=== PATIENT | female | born 1930 | race African-American/Black ===

== ENCOUNTER 2017-04-01 09:04 | Inpatient (IN) ==
[2017-04-01] MEDS ORDERED: PANTOPRAZOLE 40 MG VIAL IV STA (09:26)
[2017-04-01] MEDS ORDERED: DICYCLOMINE 20 MG/2 ML AMP IM ONE ×2 (09:26→09:48)
[2017-04-01] MEDS ORDERED: METOCLOPRAMIDE 10 MG/2 ML VIAL IV STA (09:26)
[2017-04-01] MEDS ORDERED: ONDANSETRON 4 MG/2 ML VIAL IV STA (09:26)
--- NOTE | 2017-04-01 09:32 | Emergency Department Note ---
Arrival - Arrival Chief Complaint: Abdominal / Flank Pain Stated Complaint: SOB ED Nursing Triage Note: C/O " MY Stomach is swollen" , states she feels like her stomach is pushing up in her chest making her having worsen SOB., + Coughing , denies having increase temp, also states that she has been feeling her heart fluttering over the last week., denies having chest pain or fluttering at the time of triage, states the fluttering and tightness gets worse after she eats., patient wearing oxygen at 2 LNC at time of triage Mode of Arrival: Wheelchair Limitations: No Limitations Source: Patient, Family Time Seen by Provider: 04/01/17 09:26 - History of Present Illness HPI Narrative: This 87-year-old black female presents with complaints of increased abdominal distention, nausea, dry cough, and increasing shortness of breath which she says is due to the sensation of her abdomen blowing up and cutting off her breath. This is been of insidious onset with minimal symptoms at bedtime last night only to progressed to significant complaints this morning associated with a sensation of heart fluttering. In association with this she denies chest pain , vomiting, diarrhea, abdominal pain, chills, fever, chest pain, melena, or bright red blood per rectum. 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 Currently although uncomfortable she is not in acute medical distress. Onset (ago): hour(s) (Patient presents approximately 12 hours post onset of symptoms) Allergies/Adverse Reactions: Allergies Allergy/AdvReac Type Severity Reaction Status Date / Time No Known Allergies Allergy Unverified 04/01/17 09:15 Review of System - Review of System 12 point system: reviewed and no additional remarkable complaints except as stated - Review of System Constitutional: Present: as per HPI Respiratory: Present: as per HPI Cardiovascular: Present: as per HPI Gastrointestinal: Present: as per HPI Medical,Surgical,& Family Hx - Medical History Cardio: History of: Hypertension Endocrine: History of: Diabetes Mellitus (IDDM), Diabetes Mellitus (NIDDM) Respiratory: History of: Respiratory Problems (wears oxygen at 2L) - Social History Smoking Status: Never smoker Frequency of Alcohol Use: None Type of Drug Use: None Exam Physical Examination: GENERAL: Obese elderly black female in no acute distress. HEENT: Normocephalic. No trauma. Moist mucous membranes. EOMI. PERRLA. ENT NML NECK: Supple. No adenopathy. CARDIAC: Regular. No murmurs. Heart rate 130 CHEST: Clear to auscultation. No respiratory distress. O2 sat 9% ABDOMEN: Firm, distended, nontender abdomen with hypoactive bowel sounds. EXTREMITIES: No trauma. Normal ROM. No pedal edema. Bilateral stasis dermatitis of the ankles SKIN: No diaphoresis. No rash. NEURO: Alert. Neuro intact. No focal deficits. Vital Signs: Vital Signs Temperature 97.9 F 04/01/17 09:45 Pulse Rate 128 H 04/01/17 09:45 Respiratory Rate 20 04/01/17 09:45 Blood Pressure 157/98 04/01/17 09:45 O2 Sat by Pulse Oximetry 93 L 04/01/17 09:08 Course - Reevaluation(s) Reevaluation #1: Advised patient that given her cardiac situation and evidence of pulmonary edema she would need to be admitted. - Consultations Consultation #1: Discussed with hospitalist service who will admit for further evaluation treatment peer Results - Labs CBC & BMP: 04/01/17 10:00 04/01/17 10:00 Labs: I reviewed the patient's laboratory and noted the normal cardiac's but evidence of renal insufficiency. Likewise noted was the possibility of early cystitis. - Impressions EKG: SVT at 130, left axis deviation, right bundle branch block pattern with diffuse nonspecific ST changes. No acute injury pattern noted. EKG post Cardizem: No rhythm at 63 with right bundle branch block, left axis deviation and diffuse ST depression inferolaterally. No acute injury pattern noted. - Diagnostic Findings Procedure: Abdominal x-ray: image reviewed by me, report reviewed by me ( Nonspecific gas and feces pattern most consistent with fecal stasis.), Chest x- ray: image reviewed by me, report reviewed by me (Cardiomegaly with bilateral small effusions and mild pulmonary edema) Disposition Clinical Impression: Supraventricular tachycardia, Congestive heart failure, Constipation Case discussed with: patient, patient's family Disposition: Still a Patient Condition: Guarded Time of Disposition: 11:45
[2017-04-01] MEDS ORDERED: ONDANSETRON 4 MG/2 ML VIAL ONE (09:48)
[2017-04-01] MEDS ORDERED: METOCLOPRAMIDE 10 MG/2 ML VIAL ONE (09:48)
[2017-04-01] MEDS ORDERED: PANTOPRAZOLE 40 MG VIAL IV ONE (09:48)
--- NOTE | 2017-04-01 10:07 | XRay Report ---
Exam: XR chest 2V Date: 04/01/2017 9:26 AM Indication: Shortness of breath Comparison: None Technical: 02/17/2014 Findings: Cardiomegaly present. Axillary surgical clips are present. Mild interstitial edema and low volume effusions. ASVD is present. External cardiac leads oxygen tubing are present. Faint clips present in the right upper abdomen. Impression: 1. Cardiomegaly with mild interstitial edema and tiny low volume effusions that suggest component of mild cardiac decompensation 2. Previous left axillary dissection and probable previous cholecystectomy PROCEDURE INTERPRETED AT [facility] DEPARTMENT OF RADIOLOGY Final Report Signed by: Dr. Rivas Aleman
--- NOTE | 2017-04-01 10:08 | XRay Report ---
Exam: XR abdomen 2V Date: 04/01/2017 9:27 AM Comparison: None Indication: Abdominal pain Findings: Lung bases are demonstrated with tiny low volume effusions and mild cardiac enlargement and surgical clips over the left breast axillary region. Surgical clips in the right upper abdomen. The liver and spleen are partially obscured Renal contours are obscured The bony structures are intact. Phleboliths in the right lower abdomen pelvic region No obvious pneumoperitoneum Nonspecific GI pattern. Impression: 1. Nonspecific GI pattern. 2. Low volume effusions atelectatic change in the basilar regions 3. Arthritic changes of the hips bilaterally. 4. Previous cholecystectomy clips. PROCEDURE INTERPRETED AT [facility] DEPARTMENT OF RADIOLOGY Final Report Signed by: Dr. Rivas Aleman
[2017-04-01 10:14] LABS: Basophils % 0.3 % (0.0-0.8); Eosinophils # 0.1 10*3/uL (0.0-0.87); Eosinophils % 1.1 % (0.00-10.9); Hematocrit 36.6 VOL% (35.7-47.0); Hemoglobin 11.5 GM/DL (12.0-16.0); Immature Granulocytes % 0.3 %; Immature Granulocytes Absolute 0.02 #; Lymphocytes # 1.2 10*3/uL (1.4-4.0); Lymphocytes % 19.9 % (21.3-54.2); Mean Corpuscular HGB Conc 31.4 GM/DL (32-36); Mean Corpuscular Hemoglobin 27 PG (27-34); Mean Corpuscular Volume 84.3 FL (87-102); Mean Platelet Volume 11.4 FL (9.6-12.0); Monocytes # 0.7 10*3/uL (0.11-0.8); Monocytes % 11.5 % (1.7-12.7); Neutrophils # 4.1 10*3/uL (1.4-7.4); Neutrophils % 66.9 % (38.7-73.9); Platelet Count 278 T/CUMM (130-400); Red Blood Count 4.34 MC/CUMM (3.8-5.5); Red Cell Distribution Width 18.1 % (9.3-17.3); White Blood Count 6.2 T/CUMM (4-12)
--- NOTE | 2017-04-01 10:20 | EKG Report ---
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
[2017-04-01] MEDS ORDERED: DILTIAZEM 50 MG/10 ML VIAL IV ONE (10:25)
[2017-04-01] MEDS ORDERED: DILTIAZEM 50 MG/10 ML VIAL IV STA (10:26)
[2017-04-01 10:32] LABS: Apearance,Urine CLOUDY (Clear); Bacteria,Urine Many /HPF (Few); Bilirubin,Urine Negative (Negative); Blood, Urine Small mg/dL (Negative); Glucose,Urine (UA) Negative (Negative); Hyaline Casts,Urine 6 /LPF (0-3); Ketones,Urine Negative (Negative); Mucus,Urine Occasional /LPF (Occasional); Nitrite,Urine Negative (Negative); Protein,Urine >=500 MG/DL; Urine Color Yellow (Yellow)
[2017-04-01] MEDS ORDERED: METOPROLOL TARTRATE 50 MG TABLET PO STA (10:40)
--- NOTE | 2017-04-01 10:41 | EKG Report ---
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
[2017-04-01] MEDS ORDERED: METOPROLOL TARTRATE 50 MG TABLET ONE (10:51)
[2017-04-01 10:54] LABS: Lactic Acid 1.9 MMOL/L (0.4-2.0)
[2017-04-01 10:56] LABS: Alanine Aminotransferase 13 U/L (13-56); Albumin 3.5 G/DL (3.4-5.0); Alkaline Phosphatase 68 U/L (45-117); Amylase 35 U/L (25-115); Aspartate Amino Transferase 18 U/L (0-37); Blood Urea Nitrogen 20 MG/DL (7-18); Calcium 9.3 MG/DL (8.5-10.1); Glucose 101 MG/DL (74-106); Osmolality,Calculated 288.8 MOS/KG (273-304); Potassium 4.1 MMOL/L (3.5-5.1); Sodium 144 MMOL/L (136-145); Total Protein 7.7 G/DL (6.4-8.3); Troponin I Only 0.016 NG/ML (0.00-0.045)
[2017-04-01] MEDS ORDERED: FUROSEMIDE 40 MG/4 ML VIAL IV STA (11:40)
[2017-04-01] MEDS ORDERED: FUROSEMIDE 40 MG/4 ML VIAL ONE (11:59)
--- NOTE | 2017-04-01 12:25 | Hospitalist History & Physical ---
Assessment and Plan - Time spent with patient Time spent with patient: Greater than 30 minutes (1) Hypertension Status: Acute Assessment and plan: 87-year-old -[place] female with history of hypertension, diabetes, CHF , breast cancer status post left mastectomy, CAD status post NE admitted by the hospitalist service with shortness of breath, abdominal distention, acute kidney injury, and CHF exacerbation. Patient will be admitted to telemetry floor under Dr. Rao's care. We will restart most of her medicines and hold her Lasix and any other nephrotoxic agent due to her acute kidney injury. Will consult cardiology to evaluate. We will trend her troponins and EKG for ACS. Will restart her home insulin and add sliding scale as well. Patient does have good bowel sounds but she is moderately distended and with no vomiting will allow her to eat and will go ahead and give her something to assist with constipation. Dr. Rao will see and examined patient and further recommendations to follow. Current Visit: Yes (2) Insulin dependent diabetes mellitus Status: Acute Current Visit: Yes (3) Shortness of breath Status: Acute Current Visit: Yes (4) CHF exacerbation Status: Acute Current Visit: Yes (5) Abdominal distention Status: Acute Current Visit: Yes (6) Nausea Status: Acute Current Visit: Yes (7) Acute kidney injury Status: Acute Current Visit: Yes History of Present Illness Chief complaint: Shortness of breath History of present illness: Ms. Churchill is a 87 year old -[place] female with history of diabetes, breast cancer status post left mastectomy, hypertension, CHF, sleep apnea on home O2, CAD with history of NE presenting to the ED with a one-week history of progressive shortness of breath and abdominal distention. Patient states approximately a week ago she started feeling bad where she was getting tired easy and her abdomen was distended. She feels like her abdomen was causing her shortness of breath. She states she had a normal bowel movement this morning she has been somewhat nauseated with decreased appetite over the last 2 days but she has not vomited. She states over the last 24-48 hours she is gotten to where she gets very short of breath doing any kind of activity and she has to stop and sit down in the chair. She has no complaints of chest pain, hematemesis, or hematochezia. She is surrounded by her children, , and grandchildren who are very supportive. Her family physician is Dr. Nina and her warehouse receiving clerk is Dr. Wolfe. Upon exam, her skin is dry with tenting, she has conversational dyspnea with O2 sats dropping into the high 80s with conversation. Her chest is clear but on auscultation her heart rhythm is irregular. ED physician states she was in A. fib with RVR but now her rate is in the 90s. Patient also has some moderate abdominal distention with good bowel sounds and no pain on palpation. She does have mild pedal edema. Her electrolytes are normal, BUN and creatinine are 20/2, BNP 1075, chest x-ray showing cardiomegaly with mild interstitial edema and low volume effusions. After discussion with Dr. Edwards the ED physician and Dr. Rao the admitting hospitalist, it was agreed patient will be admitted for further evaluation and treatment. When medicines are entered into the system they will be reconciled and patient is a full code. Allergies Allergy/AdvReac Type Severity Reaction Status Date / Time No Known Allergies Allergy Unverified 04/01/17 09:15 Medical,Surgical,& Family Hx - Medical History Cardio: History of: CHF, Hypertension Endocrine: History of: Diabetes Mellitus (IDDM), Diabetes Mellitus (NIDDM) Respiratory: History of: Respiratory Problems (wears oxygen at 2L) - Surgical History Abdominal Surgeries: Surgical HX of: Cholecystectomy Reproductive Surgeries: Surgical HX of;: Breast Surgery, Hysterectomy - Family History Family History: Reports;: Family Diabetes, Family Heart Disease - Social History Smoking Status: Never smoker Frequency of Alcohol Use: None Type of Drug Use: None Marital Status: Lives With:: Spouse Functional capacity: independent ambulation 12 point system: reviewed and no additional remarkable complaints except as stated Exam - Constitutional Vitals: Period Temp Pulse Resp BP Sys/Avina Pulse Ox Last 24 Hr 97.9 F-97.9 F 128-128 20-20 157-157/98-98 93 Exam: Constitutional System: No distress. No tremulousness. Head: Normocephalic, atraumatic. Ears, Nose and Throat System: No evidence of Otitis or Mastoiditis. No epistaxis or discharge Eyes System: Pupils equal, round, and reactive. Extraocular muscles intact. Neck: Supple, without adenopathy, No jugular venous distention. No thyromegaly, neck mass, or prior surgery apparent. Respiratory System: Chest clear to auscultation. Cardiovascular System: Heart with irregular rate and rhythm. No murmur. GI System: Abdomen moderately distended, nontender. Normo active bowel sounds present. Musculoskeletal System: limbs with mild pedal edema. Full distal pulses. Neurological System: No discernable sensory deficit. No aphasia Psychiatric System: Conversation is rational Results - Labs CBC & BMP: 04/01/17 10:00 04/01/17 10:00 Lab Results: I have reviewed the past 24 hour labs - Impressions EKG is reading uncertain regular rhythm, marked left axis deviation, right bundle branch block, moderate T-wave abnormality considering lateral and inferior ischemia.
[2017-04-01 12:26] LABS: Free T4 (Free Thyroxine) 1.44 NG/DL (0.76-1.46); Thyroid Stimulating Hormone 0.879 uIU/ml (0.358-3.74)
[2017-04-01] MEDS ORDERED: GLUCAGON 1 MG VIAL IM PRN (12:56)
[2017-04-01] MEDS ORDERED: DEXTROSE 50% 25 GM/50 ML SYRINGE IV PRN (12:56)
[2017-04-01] MEDS: ENOXAPARIN 30 MG/0.3 ML SYRINGE SUBCUT SCH (14:27)
--- NOTE | 2017-04-01 14:46 | Ultrasound Report ---
Exam: US venous doppler LE BI Indication: Bilateral infarction with edema dyspnea Date: 04/01/2017 12:22 PM Comparison 02/12/2014 Findings: Grayscale color flow duplex/Doppler imaging and spectral analysis waveform imaging was performed with real-time ultrasound with image stored and captured. The right common femoral, superficial femoral, popliteal saphenous veins are patent with normal augmentation and compression. There is no evidence of popliteal or Amaro's cyst. Normal wave form analysis present. Normal color flow The left common femoral, superficial femoral, popliteal saphenous veins are patent with normal augmentation and compression. There is no evidence of popliteal or Amaro's cyst. Normal wave form analysis present. Normal color flow Impression: 1. No DVT PROCEDURE INTERPRETED AT [facility] DEPARTMENT OF RADIOLOGY Final Report Signed by: Dr. Rivas Aleman
--- NOTE | 2017-04-01 14:53 | Ultrasound Report ---
Exam: US abdomen Date:04/01/2017 11:58 AM Indication: Elevated creatinine abdominal pain swelling Comparison: None Findings: Liver: 18.7 cm Gallbladder: Prior cholecystectomy CBD: 3.3 mm Pancreas: Normal size shape and configuration Kidneys Right kidney: 10.3 x 4.5 x 4.2 cm. No hydronephrosis perinephric fluid collections or focal mass Left kidney: 10.2 x 5.6 x 3.8 cm. No hydronephrosis perinephric fluid collections or focal mass. Aorta IVC: Aorta is obscured. IVC is patent. Spleen: 11.9 x 5 x 7 x 4.7 cm. Right base pleural effusion is present. No obvious ascites noted. Impression: 1. Previous cholecystectomy 2. No obvious acute intra-abdominal pathology clearly seen. Ultrasound images were stored and captured PROCEDURE INTERPRETED AT [facility] DEPARTMENT OF RADIOLOGY Final Report Signed by: Dr. Rivas Aleman
[2017-04-01] MEDS: INSULIN REGULAR 100 UNIT/ML SUBCUT SCH ×2 (16:21→22:10)
--- NOTE | 2017-04-01 19:40 | Cardiology Consult Note ---
Assessment and Plan (1) Shortness of breath Status: Acute Current Visit: Yes (2) Tachycardia Status: Acute Current Visit: Yes (3) Pulmonary hypertension Status: Chronic Current Visit: Yes (4) Urinary tract infection Status: Acute Current Visit: Yes (5) Renal insufficiency Status: Acute Current Visit: Yes (6) Hypertension Status: Chronic Current Visit: Yes History of Present Illness - Data of Consult Patient: known to practice within the last 3 years Consult date: 04/01/17 Requesting Physician: Rivas Rao - Consult Narrative Reason for consult: CHF History of present illness: Blog Writer: Dr. Wolfe. Ms. Churchill is a 87 year old female with a history of hypertension, left ventricular hypertrophy with diastolic dysfunction, severe pulmonary hypertension, obstructive sleep apnea, chronic right bundle branch block. I do not see any recent echocardiogram on her. She was admitted to the hospital with worsening shortness of breath and "congestive heart failure". The patient reports that over the last couple of weeks she thought that there was " something wrong with her oxygen", she chronically uses O2 at home. This morning however she felt extremely short of breath and so she came to the emergency room for further evaluation and treatment. She has not been experiencing any worsening lower extremity edema, chest discomfort, awareness of any palpitations. Her family is present and believes that she does have a history of "irregular heartbeat", but she does not take any anticoagulation and has never been on anticoagulation for this. She has had an ongoing chronic cough that is occasionally productive of clear sputum, but she has not had any febrile illness. She denies any other acute illnesses other than her stomach feeling "tight" after she eats. She has been diagnosed with urinary tract infection. There is some evidence of "mild" heart failure on evaluation with chest x-ray. Abdominal ultrasound has been unremarkable. Curiously, she tends to have a resting heart rate in the 60s however on my exam she is tachycardic with a heart rate in the 120s. I do not have an ECG with her during tachycardia but is quite possible that she has developed an arrhythmia and this could be paroxysmal, contributing to her symptoms. Impression and plan: 1. Dyspnea-this is likely multifactorial. She has underlying pulmonary hypertension, she also has an elevated d-dimer. Pulmonary embolism should be excluded, with a VQ scan since she has renal insufficiency. We also check bilateral lower extremity venous Dopplers. Given her history of LVH with diastolic dysfunction, certainly a tachycardic arrhythmia could produce some heart failure and worsening dyspnea. I will check an echocardiogram. 2. Tachycardia-see discussion above. This could be related to her urinary tract infection as well. I will check an ECG during tachycardia to try to evaluate for arrhythmia. I would give her at least 1 dose of anticoagulation will work her up for pulmonary embolism and atrial fibrillation. 3. Pulmonary hypertension-chronic. We will recheck echocardiogram. She has seen Dr. Shine in the past. 4. Sleep apnea. Chronic, stable. 5. Hypertension. Chronic, stable. 6. Urinary tract infection-being treated by the hospitalist service. CC: Everardo Brandon - Home Medications and Allergies Home Medications: Home Medications Medication Instructions Recorded Confirmed Type Amlodipine Besylate [Amlodipine 10 mg PO DAILY 04/01/17 04/01/17 History Besylate] Aspirin EC Tab 81 mg PO DAILY 04/01/17 04/01/17 History Furosemide [Furosemide] 40 mg PO DAILY 04/01/17 04/01/17 History Insulin NPH Human Isophane 10 units SUBCUT QAM 04/01/17 04/01/17 History [Novolin N] Isosorbide Mononitrate [Isosorbide 30 mg PO DAILY 04/01/17 04/01/17 History Mononitrate ER] Losartan Potassium [Losartan 50 mg PO DAILY 04/01/17 04/01/17 History Potassium] Metoprolol Succinate Xl [Toprol Xl] 100 mg PO BID 04/01/17 04/01/17 History Potassium Chloride 20 meq PO BID 04/01/17 04/01/17 History Allergies/Adverse Reactions: Allergies Allergy/AdvReac Type Severity Reaction Status Date / Time No Known Allergies Allergy Unverified 04/01/17 09:15 12 point system: reviewed and no additional remarkable complaints except as stated Medical,Surgical,& Family Hx - Medical History Cardio: History of: Cardiac Dysrhythmia, CHF, Hypertension Endocrine: History of: Diabetes Mellitus (IDDM), Diabetes Mellitus (NIDDM) Respiratory: History of: Obstructive Sleep Apnea, Pulmonary Hypertension, Respiratory Problems (wears oxygen at 2L) Reproductive: History of: Breast Cancer - Surgical History Abdominal Surgeries: Surgical HX of: Cholecystectomy Reproductive Surgeries: Surgical HX of;: Breast Surgery, Hysterectomy - Family History Family History: Reports;: Family Diabetes, Family Heart Disease - Social History Smoking Status: Never smoker Frequency of Alcohol Use: None Type of Drug Use: None Marital Status: Lives With:: Spouse Functional capacity: independent ambulation Physical Examination Vital Signs Temp Pulse Resp BP Pulse Ox 97.9 F 128 H 20 157/98 93 L 04/01/17 09:08 04/01/17 09:08 04/01/17 09:08 04/01/17 09:08 04/01/17 09:08 Exam: General appearance: normal weight, no acute distress - Head Head exam: Present: normal inspection, normocephalic, atraumatic. Absent: hematoma, laceration - Eye Eye exam: Present: EOMI. Absent: conjunctival injection, nystagmus, periorbital swelling, scleral icterus, laceration to eyelids Pupils: Present: PERRL. Absent: constricted, dilated, fixed, irregular, unequal - ENT ENT exam: Present: normal exam, normal external ear exam - Neck Neck exam: Present: normal inspection. Absent: lymphadenopathy, meningismus, tenderness, thyromegaly - Respiratory Respiratory exam: Present: clear to auscultation bilaterally. Absent: accessory muscle use, chest wall tenderness - Cardiovascular Cardiovascular exam: Present: Tachycardic with a regular rate and rhythm, 2/6 holosystolic murmur. Jugular venous distention is present at greater than 8 cm. Absent: carotid bruit, gallop, rubs - GI/Abdominal GI/Abdominal exam: Present: normal bowel sounds, soft. Absent: distended, firm , guarding, hernia, mass, tenderness, rebound. - Extremities Exam Extremities exam: Present: Trace edema, decreased pulses. - Back Exam Back exam: Present: normal inspection. Absent: muscle spasm, vertebral tenderness - Neurological Exam Neurological exam: Present: alert, oriented X3, grossly intact without resting or intention tremor - Psychiatric Psychiatric exam: Present: normal affect, normal mood - Skin Skin exam: Present: normal color, warm, dry, intact. Absent: cyanosis, diaphoretic, rash, urticaria Result/EKG - Labs CBC & BMP: 04/01/17 10:00 04/01/17 10:00 Lab Results: I have reviewed the past 24 hour labs Labs: Laboratory Results - last 24 hr 04/01/17 04/01/17 04/01/17 09:26 10:00 10:00 WBC 6.2 RBC 4.34 Hgb 11.5 L Hct 36.6 MCV 84.3 L MCH 27 MCHC 31.4 L RDW 18.1 H Plt Count 278 MPV 11.4 Neut % (Auto) 66.9 Lymph % (Auto) 19.9 L [place] % (Auto) 11.5 Eos % (Auto) 1.1 Baso % (Auto) 0.3 Neut # (Auto) 4.1 Lymph # (Auto) 1.2 L [place] # (Auto) 0.7 Eos # (Auto) 0.1 Baso # (Auto) 0.0 Immature Gran % 0.3 Nucleated RBC % 0.0 Immature Gran # 0.02 Nucleated RBCs # 0.00 Immature Plt Fraction 0.0 D-Dimer, Quantitative Sodium 144 Potassium 4.1 Chloride 110 H Carbon Dioxide 25 Anion Gap 13.1 BUN 20 H Creatinine 2.00 H GFR Calculation 30 BUN/Creatinine Ratio 10.00 Glucose 101 POC Glucose Calculated Osmolality 288.8 Lactic Acid 1.9 Calcium 9.3 Total Bilirubin 0.90 AST 18 ALT 13 Alkaline Phosphatase 68 Total Creatine Kinase 44 CK-MB (CK-2) < 1.0 Troponin I 0.016 B-Natriuretic Peptide Total Protein 7.7 Albumin 3.5 Globulin 4.2 H Albumin/Globulin Ratio 0.8 L Amylase 35 Lipase 88.0 Free T4 TSH 3rd Generation Urine Color Yellow Urine Appearance Cloudy Urine pH 5.0 Ur Specific [place] 1.010 Urine Protein >=500 Urine Glucose (UA) Negative Urine Ketones Negative Urine Blood Small Urine Nitrate Negative Urine Bilirubin Negative Urine Urobilinogen 4.0 H Urine Leukocytes Negative Urine Bacteria Many Hyaline Casts 6 Urine Mucus Occasional Ur Culture Indicated? Not indicated 04/01/17 04/01/17 04/01/17 10:00 10:08 11:05 WBC RBC Hgb Hct MCV MCH MCHC RDW Plt Count MPV Neut % (Auto) Lymph % (Auto) Holt % (Auto) Eos % (Auto) Baso % (Auto) Neut # (Auto) Lymph # (Auto) [place] # (Auto) Eos # (Auto) Baso # (Auto) Immature Gran % Nucleated RBC % Immature Gran # Nucleated RBCs # Immature Plt Fraction D-Dimer, Quantitative 2.8 Sodium Potassium Chloride Carbon Dioxide Anion Gap BUN Creatinine GFR Calculation BUN/Creatinine Ratio Glucose POC Glucose Calculated Osmolality Lactic Acid Calcium Total Bilirubin AST ALT Alkaline Phosphatase Total Creatine Kinase CK-MB (CK-2) Troponin I B-Natriuretic Peptide 1075 H Total Protein Albumin Globulin Albumin/Globulin Ratio Amylase Lipase Free T4 1.44 TSH 3rd Generation 0.879 Urine Color Urine Appearance Urine pH Ur Specific [place] Urine Protein Urine Glucose (UA) Urine Ketones Urine Blood Urine Nitrate Urine Bilirubin Urine Urobilinogen Urine Leukocytes Urine Bacteria Hyaline Casts Urine Mucus Ur Culture Indicated? 04/01/17 04/01/17 13:58 16:07 WBC RBC Hgb Hct MCV MCH MCHC RDW Plt Count MPV Neut % (Auto) Lymph % (Auto) [place] % (Auto) Eos % (Auto) Baso % (Auto) Neut # (Auto) Lymph # (Auto) [place] # (Auto) Eos # (Auto) Baso # (Auto) Immature Gran % Nucleated RBC % Immature Gran # Nucleated RBCs # Immature Plt Fraction D-Dimer, Quantitative Sodium Potassium Chloride Carbon Dioxide Anion Gap BUN Creatinine GFR Calculation BUN/Creatinine Ratio Glucose POC Glucose 123 H Calculated Osmolality Lactic Acid Calcium Total Bilirubin AST ALT Alkaline Phosphatase Total Creatine Kinase CK-MB (CK-2) Troponin I 0.016 B-Natriuretic Peptide Total Protein Albumin Globulin Albumin/Globulin Ratio Amylase Lipase Free T4 TSH 3rd Generation Urine Color Urine Appearance Urine pH Ur Specific [place] Urine Protein Urine Glucose (UA) Urine Ketones Urine Blood Urine Nitrate Urine Bilirubin Urine Urobilinogen Urine Leukocytes Urine Bacteria Hyaline Casts Urine Mucus Ur Culture Indicated? - Diagnostic Findings Procedure: Chest x-ray: report reviewed by me, Ultrasound: report reviewed by me - EKG EKG results: interpreted by me (Regular rhythm, right bundle branch block)
[2017-04-01] MEDS ORDERED: ENOXAPARIN 100 MG/ML SYRINGE SUBCUT ONE (19:55)
--- NOTE | 2017-04-01 20:33 | ECHO Report ---
Mary Churchill Exam Date: 04/01/2017 13:46 Referring Physician: Technologist: Marianne Rizzo RDCS Age: 87 Ht (in): 63 Wt (lb): 227 Gender: F Exam Location: [facility] Echo Indications: Shortness of breath, Essential (primary) hypertension, IDDM, Atrial fibrillation, hx Breast CA, CAD, Heart failure, unspecified, Sleep apnea BP: 147 / 96 HR: 120 Rhythm: Atrial fibrillation Technical Quality: Fair IMPRESSIONS Mildly reduced LV systolic function, ejection fraction estimated at 40- 5%. Regional wall motion as described below. Diastolic parameters are indeterminate. Severe concentric left ventricular hypertrophy. Right ventricular dilation and hypokinesis. Mild to moderate biatrial enlargement. Mild mitral and aortic regurgitation. Moderate to severe tricuspid regurgitation. Mild to moderate pulmonary regurgitation. Severe pulmonary hypertension with pulmonary artery pressure estimated at 77 mmHg. MEASUREMENTS (Male / Female) Normal Values 2D ECHO LV Diastolic Diameter PLAX 4.2 cm 4.2 - 5.9 / 3.9 - 5.3 cm LV Systolic Diameter PLAX 3.3 cm LV Fractional Shortening PLAX 21.1 % IVS Diastolic Thickness 2.0 cm 0.6 - 1.0 / 0.6 - 0.9 cm LVPW Diastolic Thickness 1.8 cm 0.6 - 1.0 / 0.6 - 0.9 cm RV Internal Dim ED PLAX 4.0 cm Aortic Root Diameter 3.4 cm LA Systolic Diameter LX 4.8 cm 3.0 - 4.0 / 2.7 - 3.8 cm DOPPLER TR Peak Velocity 408.0 cm/s TR Peak Gradient 66.6 mmHg FINDINGS Left Ventricle Normal left ventricular cavity size. Moderate left ventricular hypertrophy. Left ventricular ejection fraction is estimated at 45 %. There is abnormal septal motion consistent with impaired relaxation. Diastolic parameters are indeterminate. Right Ventricle The right ventricle is dilated and hypokinetic. Right Atrium Moderately increased right atrial size. Left Atrium Moderately increased left atrial size. Mitral Valve Morphologically normal mitral valve. Mild mitral valve regurgitation. Aortic Valve The aortic valve is trileaflet and has normal motion. Trace to mild aortic valve regurgitation. There is mild sclerosis without stenosis. Tricuspid Valve Morphologically normal tricuspid valve. [id number] tricuspid valve regurgitation. Tricuspid regurgitation velocities suggest a PAP of 77 mmHg. Pulmonic Valve Morphologically normal pulmonic valve. [id number] pulmonary valve regurgitation. Pericardium Normal pericardium without effusion. Aorta Normal ascending aorta dimension. Taylor Davis MD (Electronically Signed) Final Date: 01 April 2017 20:32
[2017-04-01] MEDS: POTASSIUM CHLORIDE 20 MEQ TABLET PO SCH (22:09)
[2017-04-01] MEDS: METOPROLOL SUCCINATE XL 100 MG TABLET PO SCH (22:09)
[2017-04-02 05:20] LABS: Basophils % 0.1 % (0.0-0.8); Eosinophils # 0.1 10*3/uL (0.0-0.87); Eosinophils % 0.8 % (0.00-10.9); Hematocrit 34.8 VOL% (35.7-47.0); Hemoglobin 10.9 GM/DL (12.0-16.0); Immature Granulocytes % 0.5 %; Immature Granulocytes Absolute 0.04 #; Lymphocytes # 1.2 10*3/uL (1.4-4.0); Mean Corpuscular HGB Conc 31.3 GM/DL (32-36); Mean Corpuscular Hemoglobin 27 PG (27-34); Mean Corpuscular Volume 84.7 FL (87-102); Mean Platelet Volume 11.5 FL (9.6-12.0); Monocytes # 1.1 10*3/uL (0.11-0.8); Monocytes % 14.1 % (1.7-12.7); Neutrophils # 5.2 10*3/uL (1.4-7.4); Neutrophils % 68.5 % (38.7-73.9); Platelet Count 261 T/CUMM (130-400); Red Blood Count 4.11 MC/CUMM (3.8-5.5); White Blood Count 7.6 T/CUMM (4-12)
[2017-04-02 05:32] LABS: Osmolality,Calculated 290.8 MOS/KG (273-304); Potassium 4.1 MMOL/L (3.5-5.1); Risk Ratio 3.07; VLDL CHOLESTEROL 14.4 MG/DL
--- NOTE | 2017-04-02 08:53 | EKG Report ---
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
--- NOTE | 2017-04-02 08:59 | Hospitalist Progress Note ---
Assessment and Plan - Time spent with patient Time spent with patient: Less than 30 minutes (1) Shortness of breath Status: Acute Assessment and plan: D-dimer was elevated. Venous Dopplers of her lower extremities is negative. VQ scan is currently pending. She has been anticoagulated. Echocardiogram is currently pending as well. Cardiology is seen in assisting with her care. Current Visit: Yes (2) Sleep apnea Status: Chronic Assessment and plan: We will reinitiate her nightly CPAP therapy. Current Visit: Yes (3) Chronic kidney disease Status: Chronic Assessment and plan: Creatinine is 2.1 today. We will continue to follow closely and avoid any nephrotoxic agents or or insults Current Visit: Yes Qualifiers: Chronic kidney disease stage: stage 3 (moderate) Qualified Code(s): N18.3 - Chronic kidney disease, stage 3 (moderate) (4) Hypertension Status: Chronic Assessment and plan: She is mildly hypertensive. We will continue to optimize her therapy while here. Current Visit: Yes Qualifiers: Hypertension type: essential hypertension Qualified Code(s): I10 - Essential (primary) hypertension (5) Insulin dependent diabetes mellitus Status: Chronic Assessment and plan: Blood sugars are well controlled. Continue her current medical regimen. Current Visit: Yes (6) Pulmonary hypertension Status: Chronic Assessment and plan: Echocardiogram is pending. She does have sleep apnea which is likely etiology Current Visit: Yes (7) Tachycardia Status: Acute Assessment and plan: Intermittently tachycardic. Echocardiogram pending. Thyroid function studies normal. Cardiology is evaluating. Current Visit: Yes Hospitalist: Subjective Interval history: Ms. Churchill has no complaints of chest pain today she has some intermittent shortness of breath. She states that normally she sleeps with a CPAP mask on at home. Have reviewed cardiology consultation and appreciate their care. Exam - Constitutional Vitals: Period Temp Pulse Resp BP Sys/Avina Pulse Ox Last 24 Hr 97.7 F-99.4 F 83-128 16-20 132-167/67-98 90-97 General appearance: no acute distress - Head Head exam: Present: normocephalic, atraumatic - Eye Eye exam: Present: EOMI Pupils: Present: POOJA - ENT ENT exam: Present: normal exam - Neck Neck exam: Present: normal inspection - Respiratory Respiratory exam: Present: clear to auscultation bilaterally. Absent: rales, rhonchi, wheezes - Cardiovascular Cardiovascular exam: Present: regular rate and rhythm, systolic murmur (2/6 holosystolic murmur), tachycardia - GI/Abdominal GI/Abdominal exam: Present: normal bowel sounds, soft. Absent: tenderness, rebound - Extremities Exam Extremities exam: Absent: calf tenderness, edema - Neurological Exam Neurological exam: Present: alert, oriented X3, CN II-XII intact. Absent: motor sensory deficit - Psychiatric Psychiatric exam: Present: normal affect, normal mood. Absent: agitated, anxious - Skin Skin exam: Present: warm, dry. Absent: rash Results - Labs CBC & BMP: 04/02/17 04:24 04/02/17 04:24 Lab Results: I have reviewed the past 24 hour labs - Diagnostic Findings Procedure: Ultrasound: report reviewed by me (Venous Dopplers without evidence of DVT)
[2017-04-02] MEDS ORDERED: amLODIPine 10 MG TABLET PO SCH (09:00)
[2017-04-02] MEDS ORDERED: FUROSEMIDE 40 MG TABLET PO SCH (09:00)
[2017-04-02] MEDS: INSULIN REGULAR 100 UNIT/ML SUBCUT SCH ×4 (09:28→23:00)
[2017-04-02] MEDS: INSULIN NPH 100 UNIT/ML SUBCUT SCH (09:28)
[2017-04-02] MEDS: ASPIRIN EC 81 MG TABLET PO SCH (09:29)
[2017-04-02] MEDS: METOPROLOL SUCCINATE XL 100 MG TABLET PO SCH ×2 (09:29→22:53)
[2017-04-02] MEDS: ISOSORBIDE MONONITRATE 30 MG TABLET PO SCH (09:29)
[2017-04-02] MEDS: POTASSIUM CHLORIDE 20 MEQ TABLET PO SCH ×2 (09:29→22:53)
--- NOTE | 2017-04-02 10:41 | Nuclear Medicine Report ---
Exam: NM lung scan vent and per Date: 04/01/2017 7:55 PM Indication: Dyspnea tachycardia Comparison: 02/12/2014 Findings: The patient was given 40 mCi of Tc 99 DTPA and 5 mCi of MAA. There is trapping of the radioaerosol in the endobronchial regions on the ventilation portion examination. No obvious mismatched defects are present to suggest pulmonary thromboemboli on the perfusion study with anterior ALBANIAN and ROSS imaging performed. Impression: 1. Low probability of pulmonary thromboemboli. PROCEDURE INTERPRETED AT [facility] DEPARTMENT OF RADIOLOGY Final Report Signed by: Dr. Rivas Aleman
[2017-04-02] MEDS: ENOXAPARIN 30 MG/0.3 ML SYRINGE SUBCUT SCH (13:41)
[2017-04-02] MEDS ORDERED: amLODIPine 5 MG TABLET PO SCH (15:27)
--- NOTE | 2017-04-02 15:30 | Cardiology Progress Note ---
Assessment and Plan (1) Shortness of breath Status: Acute Current Visit: Yes (2) Tachycardia Status: Acute Current Visit: Yes (3) Pulmonary hypertension Status: Chronic Current Visit: Yes (4) Urinary tract infection Status: Acute Current Visit: Yes (5) Renal insufficiency Status: Acute Current Visit: Yes (6) Hypertension Status: Chronic Current Visit: Yes Qualifiers: Hypertension type: essential hypertension Qualified Code(s): I10 - Essential (primary) hypertension Cardiology - PN: Subj Interval history: Field Property Loss Specialist: Dr. Wolfe. Summary: Ms. Churchill is a 87 year old female with a history of hypertension, left ventricular hypertrophy with diastolic dysfunction, severe pulmonary hypertension, obstructive sleep apnea, chronic right bundle branch block. She was admitted with shortness of breath. Pulmonary embolism was ruled out with VQ scan, lower extremity venous Dopplers are negative. Her heart rate seems to have jumped from 60 upon admission into the 120s. April 02, 2017: She continues to feel short of breath, not necessarily better or worse from yesterday. She continues to be somewhat tachycardic. She is not experiencing any chest pain. Impression and plan: 1. Dyspnea-this is likely multifactorial. She has underlying pulmonary hypertension, and her systolic function is mildly decreased on echo. She has been tachycardic, and I cannot definitively rule out atrial flutter. We will diurese her some and reevaluate her symptoms. 2. Tachycardia-see discussion above. This could be related to her urinary tract infection as well. It is difficult to discern between whether this is sinus tachycardia potentially atrial flutter with 2-1 block. I am going to decrease her Norvasc and begin Cardizem in an effort to better rate control her. We will repeat ECG as well when she is less tachycardic to reevaluate her underlying rhythm. 3. Pulmonary hypertension-chronic. She has seen Dr. Shine in the past. 4. Sleep apnea. Chronic, stable. 5. Hypertension. Chronic, stable. 6. Urinary tract infection-being treated by the hospitalist service. Exam (Progress Note) - Constitutional Vitals: Period Temp Pulse Resp BP Sys/Avina Pulse Ox Last 24 Hr 97.7 F-99.4 F 120-126 16-26 132-167/67-96 90-94 Exam: General appearance: normal weight, no acute distress - Head Head exam: Present: normal inspection, normocephalic, atraumatic. Absent: hematoma, laceration - Eye Eye exam: Present: EOMI. Absent: conjunctival injection, nystagmus, periorbital swelling, scleral icterus, laceration to eyelids Pupils: Present: PERRL. Absent: constricted, dilated, fixed, irregular, unequal - ENT ENT exam: Present: normal exam, normal external ear exam - Neck Neck exam: Present: normal inspection. Absent: lymphadenopathy, meningismus, tenderness, thyromegaly - Respiratory Respiratory exam: Present: clear to auscultation bilaterally. Absent: accessory muscle use, chest wall tenderness - Cardiovascular Cardiovascular exam: Present: Tachycardic rate and regular hythm. Absent: carotid bruit, gallop, JVD, rubs - GI/Abdominal GI/Abdominal exam: Present: normal bowel sounds, soft. Absent: distended, firm , guarding, hernia, mass, tenderness, rebound. - Extremities Exam Extremities exam: Present: Mild edema, decreased pulses - Back Exam Back exam: Present: normal inspection. Absent: muscle spasm, vertebral tenderness - Neurological Exam Neurological exam: Present: alert, oriented X3, grossly intact without resting or intention tremor - Psychiatric Psychiatric exam: Present: normal affect, normal mood - Skin Skin exam: Present: normal color, warm, dry, intact. Absent: cyanosis, diaphoretic, rash, urticaria Result/EKG - Labs CBC & BMP: 04/02/17 04:24 04/02/17 04:24 Lab Results: I have reviewed the past 24 hour labs Labs: Laboratory Results - last 24 hr 04/01/17 04/01/17 04/02/17 16:07 22:07 04:24 WBC 7.6 RBC 4.11 Hgb 10.9 L Hct 34.8 L MCV 84.7 L MCH 27 MCHC 31.3 L RDW 18.0 H Plt Count 261 MPV 11.5 Neut % (Auto) 68.5 Lymph % (Auto) 16.0 L [place] % (Auto) 14.1 H Eos % (Auto) 0.8 Baso % (Auto) 0.1 Neut # (Auto) 5.2 Lymph # (Auto) 1.2 L [place] # (Auto) 1.1 H Eos # (Auto) 0.1 Baso # (Auto) 0.0 Immature Gran % 0.5 Nucleated RBC % 0.0 Immature Gran # 0.04 Nucleated RBCs # 0.00 Immature Plt Fraction 0.0 Sodium Potassium Chloride Carbon Dioxide Anion Gap BUN Creatinine GFR Calculation BUN/Creatinine Ratio Glucose POC Glucose 123 H 125 H Hemoglobin A1c Calculated Osmolality Calcium Triglycerides Cholesterol LDL Cholesterol VLDL Cholesterol HDL Cholesterol Heart Disease Risk Ratio 04/02/17 04/02/17 04/02/17 04:24 04:24 07:34 WBC RBC Hgb Hct MCV MCH MCHC RDW Plt Count MPV Neut % (Auto) Lymph % (Auto) [place] % (Auto) Eos % (Auto) Baso % (Auto) Neut # (Auto) Lymph # (Auto) [place] # (Auto) Eos # (Auto) Baso # (Auto) Immature Gran % Nucleated RBC % Immature Gran # Nucleated RBCs # Immature Plt Fraction Sodium 144 Potassium 4.1 Chloride 110 H Carbon Dioxide 27 Anion Gap 11.1 BUN 22 H Creatinine 2.10 H GFR Calculation 29 BUN/Creatinine Ratio 10.00 Glucose 133 H POC Glucose 154 H Hemoglobin A1c 5.8 Calculated Osmolality 290.8 Calcium 9.0 Triglycerides 72 Cholesterol 129 LDL Cholesterol 67.0 VLDL Cholesterol 14.4 HDL Cholesterol 42 Heart Disease Risk Ratio 3.07 04/02/17 11:39 WBC RBC Hgb Hct MCV MCH MCHC RDW Plt Count MPV Neut % (Auto) Lymph % (Auto) [place] % (Auto) Eos % (Auto) Baso % (Auto) Neut # (Auto) Lymph # (Auto) [place] # (Auto) Eos # (Auto) Baso # (Auto) Immature Gran % Nucleated RBC % Immature Gran # Nucleated RBCs # Immature Plt Fraction Sodium Potassium Chloride Carbon Dioxide Anion Gap BUN Creatinine GFR Calculation BUN/Creatinine Ratio Glucose POC Glucose 147 H Hemoglobin A1c Calculated Osmolality Calcium Triglycerides Cholesterol LDL Cholesterol VLDL Cholesterol HDL Cholesterol Heart Disease Risk Ratio
[2017-04-02] MEDS: FUROSEMIDE 40 MG/4 ML VIAL IV SCH (17:08)
[2017-04-02] MEDS: DILTIAZEM 30 MG TABLET PO SCH (22:53)
[2017-04-03 05:53] LABS: Calcium 8.7 MG/DL (8.5-10.1); Magnesium 2.9 MG/DL (1.8-2.4); Potassium 4.8 MMOL/L (3.5-5.1)
--- NOTE | 2017-04-03 07:44 | EKG Report ---
Please refer to the EKG image. Final interpretation is pending.
[2017-04-03] MEDS: ASPIRIN EC 81 MG TABLET PO SCH (09:21)
[2017-04-03] MEDS: METOPROLOL SUCCINATE XL 100 MG TABLET PO SCH ×2 (09:23→21:28)
[2017-04-03] MEDS: DILTIAZEM 30 MG TABLET PO SCH ×2 (09:23→14:32)
[2017-04-03] MEDS: ISOSORBIDE MONONITRATE 30 MG TABLET PO SCH (09:24)
[2017-04-03] MEDS: POTASSIUM CHLORIDE 20 MEQ TABLET PO SCH ×2 (09:25→21:26)
[2017-04-03] MEDS: INSULIN NPH 100 UNIT/ML SUBCUT SCH (09:26)
[2017-04-03] MEDS: FUROSEMIDE 40 MG/4 ML VIAL IV SCH (09:27)
[2017-04-03] MEDS: INSULIN REGULAR 100 UNIT/ML SUBCUT SCH ×4 (09:29→21:26)
--- NOTE | 2017-04-03 09:38 | Physician Query Form ---
CLICK EDIT DOCUMENT TO SELECT QUERY ANSWER --> OK --> SIGN Diane Strickland RN, CCDS Certified Clinical Spray Gun Operator W) [phone] (f) [phone] [email or web address] PROVIDERS: Make your selection(s) from the choices in EACH section by typing an "x" and enter comments in the comment section. Please use your independent medical judgment in providing your response. This request does not imply that any particular answer is desired or expected. CLINICAL INDICATORS: (Providers should not edit this section) The medical record indicates that the patient was admitted with congestive heart failure, BNP of 1075#, left ventricular hypertrophy with diastolic dysfunction", 'systolic function is mildly decreased on echo" and the patient was treated with IV Lasix. , ejection fraction estimated at 40- 5% Please provide further specificity regarding CHF. ACUITY: ( ) Acute ( ) Chronic ( ) Acute on Chronic (X ) Clinically unable to determine TYPE: ( ) Systolic (HFrEF - heart failure with reduced systolic function/EF) ( ) Diastolic (HFpEF - heart failure with preserved systolic function/EF) ( ) Combined Systolic/Diastolic ( ) Other, please specify: ( X) Clinically unable to determine ( ) Past Medical History of Systolic CHF ( ) Past Medical History of Diastolic CHF (X ) Clinically unable to determine COMMENTS: PLEASE ALSO DOCUMENT RESPONSE IN PROGRESS NOTES AND/OR DISCHARGE SUMMARY Use of terms such as suspected, likely, or probable (associated with a specific diagnosis that is being evaluated, monitored, or treated as if it exists) are acceptable and can be restated in the discharge summary if not ruled out. MTDD
--- NOTE | 2017-04-03 09:40 | Physician Query Form ---
CLICK EDIT DOCUMENT TO SELECT QUERY ANSWER --> OK --> SIGN Diane Strickland RN, CCDS Certified Clinical Bunch Breaker W) [phone] (f) [phone] [email or web address] PROVIDERS: Make your selection(s) from the choices in EACH section by typing an "x" and enter comments in the comment section. Please use your independent medical judgment in providing your response. This request does not imply that any particular answer is desired or expected. CLINICAL INDICATORS: (Providers should not edit this section) The medical record indicates that the patient was admitted with congestive heart failure, "does have severe COPD and is on home O2 at 2 L a minute." Patient admitted and placed on 2 liters per NC. Based on the above, could you clarify the appropriate diagnosis, if significant , that supports the above abnormalities and additional evaluation, monitoring, and/or treatment rendered: (x ) Patient is being treated or monitored for CHRONIC respiratory failure ( ) Patient is not being treated or monitored for CHRONIC respiratory failure ( ) Other, please specify: ( ) Clinically unable to determine COMMENTS: PLEASE ALSO DOCUMENT RESPONSE IN PROGRESS NOTES AND/OR DISCHARGE SUMMARY Use of terms such as suspected, likely, or probable (associated with a specific diagnosis that is being evaluated, monitored, or treated as if it exists) are acceptable and can be restated in the discharge summary if not ruled out. MTDD
[2017-04-03] MEDS: ENOXAPARIN 30 MG/0.3 ML SYRINGE SUBCUT SCH (14:32)
--- NOTE | 2017-04-03 18:05 | Hospitalist Progress Note ---
Assessment and Plan (1) Hypertension Status: Chronic Current Visit: Yes Qualifiers: Hypertension type: essential hypertension Qualified Code(s): I10 - Essential (primary) hypertension (2) Insulin dependent diabetes mellitus Status: Chronic Current Visit: Yes (3) Shortness of breath Status: Acute Assessment and plan: No evidence of PE or DVT CXR o admission with mild cardiac decompensation Will repeat today Current Visit: Yes (4) Pulmonary hypertension Status: Chronic Current Visit: Yes (5) Tachycardia Status: Acute Current Visit: Yes (6) Acute kidney injury Status: Acute Assessment and plan: In our system, creatinine has ranged from 1.5 to 2.8 Today creatinine up to 2.5 from 2.0 on admission Will obtain urine studies and repeat ua Will hold on fluids as patient is currently on lasix for CHF Patient has a mera Current Visit: Yes Hospitalist: Subjective Interval history: No acute events overnight. She reports no change in her breathing today. Exam - Constitutional Vitals: Period Temp Pulse Resp BP Sys/Avina Pulse Ox Last 24 Hr 97.1 F-98.9 F 120-129 16-18 123-146/60-98 88-95 General appearance: over weight - Head Head exam: Present: normocephalic, atraumatic - Eye Eye exam: Present: EOMI Pupils: Present: POOJA - ENT ENT exam: Present: normal exam - Neck Neck exam: Present: normal inspection - Respiratory Respiratory exam: Present: clear to auscultation bilaterally. Absent: rhonchi, wheezes - Cardiovascular Cardiovascular exam: Present: regular rate and rhythm - GI/Abdominal GI/Abdominal exam: Present: normal bowel sounds, soft. Absent: tenderness, rebound - Extremities Exam Extremities exam: Present: normal inspection - Back Exam Back exam: Present: normal inspection - Neurological Exam Neurological exam: Present: alert, oriented X3 - Psychiatric Psychiatric exam: Present: normal affect, normal mood - Skin Skin exam: Present: warm, intact Results - Labs CBC & BMP: 04/02/17 04:24 04/03/17 05:12
--- NOTE | 2017-04-03 18:12 | Cardiology Progress Note ---
I, Letha Delatorre RN, am scribing for, and in the presence of, Denys Nolen MD 18:12. Assessment and Plan (1) Tachycardia Status: Acute Assessment and plan: I think the patient has atrial tachycardia or atrial flutter. I am going to increase her rate controlling medication. I also think she would probably benefit from anticoagulation. I am going to start a low-dose of Eliquis. Current Visit: Yes (2) Shortness of breath Status: Acute Current Visit: Yes (3) Renal insufficiency Status: Chronic Current Visit: Yes (4) Hypertension Status: Chronic Current Visit: Yes Qualifiers: Qualified Code(s): I10 - Essential (primary) hypertension (5) Pulmonary hypertension Status: Chronic Current Visit: Yes Cardiology - PN: Subj Interval history: Plant Safety Leader: Dr. Wolfe. Summary: Ms. Churchill is a 87 year old female with a history of hypertension, left ventricular hypertrophy with diastolic dysfunction, severe pulmonary hypertension, obstructive sleep apnea, chronic right bundle branch block. She was admitted with shortness of breath. Pulmonary embolism was ruled out with VQ scan, lower extremity venous Dopplers are negative. Her heart rate seems to have jumped from 60 upon admission into the 120s. April 03, 2017: This morning Ms. Churchill reports her breathing has improved, that is not back to her baseline. She denies any chest pain or discomfort. She says she feels at times as if her heart is racing. monitoring manager currently shows what appears to be an atrial tachycardia or atrial flutter with heart rates of approximately 130. Over the weekend her Norvasc was decreased and she was started on Cardizem 30 mg p.o. 3 times daily. She is on Lasix 40 mg IV daily. She reports the swelling in her abdomen and lower extremities is less than on admission. Her kidney function has climbed slightly to 2.5 this morning. Her CPAP machine is at bedside, she states that they left the cord at home so she was unable to use it last night. Someone is supposed to bring it today so hopefully she will be able to use that tonight. Current Medications Amlodipine Besylate (Norvasc) 5 mg PO DAILY [facility] Last Admin: 04/03/17 09:22 Dose: 5 mg Aspirin () 81 mg PO DAILY [facility] Last Admin: 04/03/17 09:21 Dose: 81 mg Dextrose/Water (D50) 25 gm IV PRN PRN PRN Reason: Hypoglycemia with IV access Diltiazem HCl (Cardizem Tab) 30 mg PO TID [facility] Last Admin: 04/03/17 09:23 Dose: 30 mg Enoxaparin Sodium (Lovenox) 30 mg SUBCUT Q24H [facility] Last Admin: 04/02/17 13:41 Dose: 30 mg Furosemide (Lasix Inj) 40 mg IV DAILY [facility] Last Admin: 04/03/17 09:27 Dose: 40 mg Glucagon () 1 mg IM PRN PRN PRN Reason: Hypoglycemia w/o IV access Insulin Human NPH (Humulin N) 10 unit SUBCUT QAM [facility] Last Admin: 04/03/17 09:26 Dose: 10 unit Insulin Human Regular (Humulin R) 0 unit SUBCUT ACHS [facility] PRN Reason: Protocol Last Admin: 04/03/17 09:29 Dose: Not Given Isosorbide Mononitrate (Imdur) 30 mg PO DAILY [facility] Last Admin: 04/03/17 09:24 Dose: 30 mg Metoprolol Succinate (Toprol Xl) 100 mg PO BID [facility] Last Admin: 04/03/17 09:23 Dose: 100 mg Potassium Chloride (K Dur) 20 meq PO BID [facility] Last Admin: 04/03/17 09:25 Dose: 20 meq Exam (Progress Note) - Constitutional Vitals: Period Temp Pulse Resp BP Sys/Avina Pulse Ox Last 24 Hr 97.1 F-99 F 120-130 16-18 123-174/60-98 90-95 General appearance: no acute distress, morbidly obese - Head Head exam: Absent: abrasion, hematoma - Eye Eye exam: Absent: periorbital swelling, laceration to eyelids Pupils: Present: POOJA - Neck Neck exam: Absent: tenderness - Respiratory Respiratory exam: Present: clear to auscultation bilaterally. Absent: accessory muscle use, chest wall tenderness - Cardiovascular Cardiovascular exam: Present: regular rate and rhythm, tachycardia - GI/Abdominal GI/Abdominal exam: Present: normal bowel sounds, soft. Absent: distended, tenderness - Extremities Exam Extremities exam: Present: edema (Brawny edema in the lower extremities) - Neurological Exam Neurological exam: Present: alert, oriented X3 - Psychiatric Psychiatric exam: Present: normal affect, normal mood - Skin Skin exam: Present: warm, dry Result/EKG - Labs CBC & BMP: 04/02/17 04:24 04/03/17 05:12 Lab Results: I have reviewed the past 24 hour labs Labs: Laboratory Results - last 24 hr 04/02/17 04/02/17 04/02/17 11:39 15:49 22:59 Sodium Potassium Chloride Carbon Dioxide Anion Gap BUN Creatinine GFR Calculation BUN/Creatinine Ratio Glucose POC Glucose 147 H 181 H 149 H Calculated Osmolality Calcium Magnesium 04/03/17 04/03/17 05:12 07:36 Sodium 143 Potassium 4.8 Chloride 109 H Carbon Dioxide 25 Anion Gap 13.8 BUN 22 H Creatinine 2.50 H GFR Calculation 24 BUN/Creatinine Ratio 8.00 Glucose 141 H POC Glucose 153 H Calculated Osmolality 289.0 Calcium 8.7 Magnesium 2.9 H - EKG EKG results: interpreted by me EKG shows: tachycardia, sinus rhythm ITamanna Michael, MD, personally performed the services described in this documentation, ascribed by Letha Delatorre RN in my presence, and it is both accurate and complete .
[2017-04-03] MEDS: DILTIAZEM 60 MG TABLET PO SCH ×2 (18:23→21:26)
--- NOTE | 2017-04-03 20:02 | XRay Report ---
XR chest 1V Indication: Shortness of breath Comparison: Chest x-ray 04/01/2017 Technique: Portable AP chest was performed. Findings: Moderate cardiomegaly stable. 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 Central vascular prominence and perihilar stranding as well as perihilar scattered airspace disease is noted. Bones and soft tissues appear stable. Previous left mastectomy Dissection are suggested. Impression: 1. Appearance of the chest suggest congestive heart failure with features of pulmonary venous congestive changes as well as mild pulmonary edema. 04/03/2017 7:58 PM PROCEDURE INTERPRETED AT [facility] DEPARTMENT OF RADIOLOGY Final Report Signed by: Dr. Marcelino Strickland
[2017-04-03] MEDS: APIXABAN 2.5 MG TABLET PO SCH (21:26)
[2017-04-03] MEDS: ASCORBIC ACID 500 MG TABLET PO SCH (21:26)
[2017-04-04 01:08] LABS: Apearance,Urine CLOUDY (Clear); Bilirubin,Urine Negative (Negative); Blood, Urine Large mg/dL (Negative); Glucose,Urine (UA) 50 mg/dL (Negative); Granular Casts,Urine 20 /LPF (0-1); Hyaline Casts,Urine 45 /LPF (0-3); Ketones,Urine Negative (Negative); Mucus,Urine Occasional /LPF (Occasional); Nitrite,Urine Negative (Negative); Protein,Urine >=500 MG/DL; RBC,Urine 305 /HPF (0-4); Urine Color Amber (Yellow); Urine Specific Gravity 1.015 (1.001-1.035); WBC,Urine 15 /HPF (0-6)
[2017-04-04 02:03] LABS: Potassium,Urine Random 47 MMOL/L
[2017-04-04 05:09] LABS: Basophils % 0.2 % (0.0-0.8); Eosinophils # 0.1 10*3/uL (0.0-0.87); Eosinophils % 0.7 % (0.00-10.9); Hematocrit 34.4 VOL% (35.7-47.0); Hemoglobin 10.6 GM/DL (12.0-16.0); Immature Granulocytes % 0.7 %; Immature Granulocytes Absolute 0.06 #; Lymphocytes # 1.5 10*3/uL (1.4-4.0); Lymphocytes % 16.6 % (21.3-54.2); Mean Corpuscular HGB Conc 30.8 GM/DL (32-36); Mean Corpuscular Hemoglobin 26 PG (27-34); Mean Corpuscular Volume 85.1 FL (87-102); Mean Platelet Volume 11.6 FL (9.6-12.0); Monocytes # 1.2 10*3/uL (0.11-0.8); Monocytes % 13.5 % (1.7-12.7); NRBC # 0.08 10*3/uL; Neutrophils # 6.3 10*3/uL (1.4-7.4); Neutrophils % 68.3 % (38.7-73.9); Platelet Count 294 T/CUMM (130-400); Red Blood Count 4.04 MC/CUMM (3.8-5.5); Red Cell Distribution Width 18.6 % (9.3-17.3); White Blood Count 9.1 T/CUMM (4-12)
[2017-04-04 05:47] LABS: Osmolality,Calculated 282.7 MOS/KG (273-304); Potassium 5.7 MMOL/L (3.5-5.1)
--- NOTE | 2017-04-04 08:57 | Nephrology Consult Note ---
History of Present Illness Chief complaint: Acute renal failure History of present illness: Ms. Churchill is a 87 year old female hypertension pulmonary hypertension was admitted for shortness of breath. Patient had a lung scan that was negative for PE lower extremity Dopplers were negative for embolus. Patient's last echo showed an EF of the proximal 45%. Serum creatinine today is noted to be 3.1. Nephrology consulted for acute renal failure. No history of NSAID medication. No history of contrast. Patient is on diuretic medications as well as ARB. On interview she mentions that her breathing is acceptable. However throughout the day urine output has been minimal. Family members report that patient has been having dyspnea on exertion for at least a year to year and a half requires oxygen at home. She also uses a CPAP machine. Home Medications Medication Instructions Recorded Confirmed Type Amlodipine Besylate [Amlodipine 10 mg PO DAILY 04/01/17 04/01/17 History Besylate] Aspirin EC Tab 81 mg PO DAILY 04/01/17 04/01/17 History Furosemide [Furosemide] 40 mg PO DAILY 04/01/17 04/01/17 History Insulin NPH Human Isophane 10 units SUBCUT QAM 04/01/17 04/01/17 History [Novolin N] Isosorbide Mononitrate [Isosorbide 30 mg PO DAILY 04/01/17 04/01/17 History Mononitrate ER] Losartan Potassium [Losartan 50 mg PO DAILY 04/01/17 04/01/17 History Potassium] Metoprolol Succinate Xl [Toprol Xl] 100 mg PO BID 04/01/17 04/01/17 History Potassium Chloride 20 meq PO BID 04/01/17 04/01/17 History Allergies Allergy/AdvReac Type Severity Reaction Status Date / Time No Known Allergies Allergy Unverified 04/01/17 09:15 Medical,Surgical,& Family Hx - Medical History Cardio: History of: Cardiac Dysrhythmia, CHF, Hypertension, [place] Endocrine: History of: Diabetes Mellitus (IDDM), Diabetes Mellitus (NIDDM) Respiratory: History of: Obstructive Sleep Apnea, Pulmonary Hypertension, Respiratory Problems (wears oxygen at 2L) Reproductive: History of: Breast Cancer - Surgical History Abdominal Surgeries: Surgical HX of: Cholecystectomy Reproductive Surgeries: Surgical HX of;: Breast Surgery, Hysterectomy - Family History Family History: Reports;: Family Diabetes, Family Heart Disease - Social History Smoking Status: Never smoker Frequency of Alcohol Use: None Type of Drug Use: None Review of Systems Constitutional: fatigue, no anorexia, no chills Cardiovascular: dyspnea, dyspnea on exertion, no chest pain at rest Respiratory: dyspnea Gastrointestinal: no abdominal pain, no cramping Exam - Vital Signs Vital signs: Period Temp Pulse Resp BP Sys/Avina Pulse Ox Last 24 Hr 97.8 F-99.2 F 61-129 18-18 113-160/66-87 88-96 - General Appearance General appearance: well-developed, well-nourished, fatigue, frail EENT: ATNC Neck: JVD, supple Respiratory: clear Cardiology: no edema, regular rate, regular rhythm Gastrointestinal: normoactive bowel sounds, no tenderness, no guarding Integumentary: warm and dry Neurologic: alert and oriented x3, CN 3-12 intact Musculoskeletal: no clubbing Psychiatric: mood/affect appropriate, cooperative Results - Labs CBC & BMP: 04/04/17 03:47 04/04/17 03:47 Assessment and Plan (1) CHF exacerbation Status: Acute Current Visit: Yes (2) Shortness of breath Status: Acute Assessment and plan: Now with oxygen therapy. Current Visit: Yes (3) Urinary tract infection Status: Acute Assessment and plan: Receiving antibiotics. Current Visit: Yes (4) Chronic kidney disease Status: Chronic Assessment and plan: Renal ultrasound shows evidence of chronic kidney disease. Decreased urine output today. Feel that patient may be intravascularly down. Will start with further fluid management Current Visit: Yes Qualifiers: Chronic kidney disease stage: stage 3 (moderate) Qualified Code(s): N18.3 - Chronic kidney disease, stage 3 (moderate) (5) Hypertension Status: Chronic Current Visit: Yes Qualifiers: Hypertension type: essential hypertension Qualified Code(s): I10 - Essential (primary) hypertension (6) Insulin dependent diabetes mellitus Status: Chronic Current Visit: Yes (7) Pulmonary hypertension Status: Chronic Current Visit: Yes (8) Sleep apnea Status: Chronic Current Visit: Yes
[2017-04-04] MEDS: APIXABAN 2.5 MG TABLET PO SCH ×2 (09:57→20:21)
[2017-04-04] MEDS: DILTIAZEM 60 MG TABLET PO SCH ×3 (09:57→20:21)
[2017-04-04] MEDS: INSULIN REGULAR 100 UNIT/ML SUBCUT SCH ×4 (09:57→20:30)
[2017-04-04] MEDS: POTASSIUM CHLORIDE 20 MEQ TABLET PO SCH ×2 (09:58→20:25)
[2017-04-04] MEDS: METOPROLOL SUCCINATE XL 100 MG TABLET PO SCH ×2 (09:58→20:21)
[2017-04-04] MEDS: ASPIRIN EC 81 MG TABLET PO SCH (09:58)
[2017-04-04] MEDS: ASCORBIC ACID 500 MG TABLET PO SCH ×2 (09:58→20:21)
[2017-04-04] MEDS: ISOSORBIDE MONONITRATE 30 MG TABLET PO SCH (09:58)
[2017-04-04] MEDS: cefTRIAXone 1,000 MG in SODIUM CHLORIDE 0.9% 100 ML IV SCH (10:04)
[2017-04-04] MEDS: FUROSEMIDE 40 MG/4 ML VIAL IV SCH (10:09)
[2017-04-04] MEDS ORDERED: ZINC OXIDE PASTE 113 GM TUBE TOP PRN (10:38)
--- NOTE | 2017-04-04 11:54 | Ultrasound Report ---
US renal Bilateral Indication: Renal failure. Comparison: Abdominal ultrasound dated April 01, 2017. Technique: Multiple longitudinal and transverse real-time sonographic images of the kidneys are obtained. Findings: The right kidney measures 8.8 cm, and the left kidney measures 9.6 cm. Renal parenchyma is somewhat hyperechoic suggestive of medical renal disease. Some cortical thinning suggested. No evidence of hydronephrosis. IMPRESSION: Medical renal disease/renal atrophy without evidence of hydronephrosis. PROCEDURE INTERPRETED AT [facility] DEPARTMENT OF RADIOLOGY Final Report Signed by: Dr Leandro Lion
[2017-04-04] MEDS ORDERED: FUROSEMIDE 40 MG/4 ML VIAL IV ONE (14:42)
--- NOTE | 2017-04-04 15:35 | Cardiology Progress Note ---
Assessment and Plan - Time spent with patient Time spent with patient: Greater than 30 minutes (1) Acute on chronic diastolic CHF (congestive heart failure), NYHA class 4 Status: Acute Assessment and plan: SEE PLAN OF CARE LISTED BELOW Current Visit: Yes (2) Acute kidney injury Status: Resolved Current Visit: Yes (3) Pulmonary hypertension Status: Chronic Assessment and plan: SEE PLAN OF CARE LISTED BELOW Current Visit: Yes (4) Tachycardia Status: Acute Assessment and plan: SEE PLAN OF CARE LISTED BELOW Current Visit: Yes (5) Urinary tract infection Status: Acute Assessment and plan: SEE PLAN OF CARE LISTED BELOW Current Visit: Yes (6) Sleep apnea Status: Chronic Assessment and plan: SEE PLAN OF CARE LISTED BELOW Current Visit: Yes (7) Chronic kidney disease Status: Chronic Assessment and plan: SEE PLAN OF CARE LISTED BELOW Current Visit: Yes Qualifiers: Chronic kidney disease stage: stage 3 (moderate) Qualified Code(s): N18.3 - Chronic kidney disease, stage 3 (moderate) Cardiology - PN: Subj Interval history: MANDOLIN REPAIRER: DR. NOWAK PCP: DR. JORDAN SUMMARY: Ms. Benavides, 87BF, with a history of hypertension, left ventricular hypertrophy with diastolic dysfunction, severe pulmonary hypertension, obstructive sleep apnea, chronic right bundle branch block. She was admitted April 01, 2017 with shortness of breath. Pulmonary embolism was ruled out with VQ scan, lower extremity venous Dopplers are negative. She is being treated for multifactorial shortness of breath to include acute CHF, severe pulmonary hypertension, obstructive sleep apnea. Echocardiogram: EF 45%, PAP 77 mmHg. She was admitted with a faster heart rate of about 120 bpm. Heart rhythm has been unclear without obvious atrial fibrillation or flutter. She does have a history of right bundle branch block and left anterior fascicular block and her EKG looks similar to prior EKGs. She is being treated for urinary tract infection. APRIL 03, 2017: This morning Ms. Benavides reports her breathing has improved, that is not back to her baseline. She denies any chest pain or discomfort. She says she feels at times as if her heart is racing. infection control preventionist currently shows what appears to be an atrial tachycardia or atrial flutter with heart rates of approximately 130. Over the weekend her Norvasc was decreased and she was started on Cardizem 30 mg p.o. 3 times daily. She is on Lasix 40 mg IV daily. She reports the swelling in her abdomen and lower extremities is less than on admission. Her kidney function has climbed slightly to 2.5 this morning. Her CPAP machine is at bedside, she states that they left the cord at home so she was unable to use it last night. Someone is supposed to bring it today so hopefully she will be able to use that tonight. APRIL 04, 2017: While sleeping, Ms. Benavides appears to be very comfortable without labored breathing. When I awaken speak with Ms. benavides, she is somewhat tachypneic. She denies chest pain, heaviness, tightness. Unfortunately, kidney function has worsened overnight. She has had very little output and Dr. Caraballo has ordered additional IV Lasix to be given at this time. She still did not use her CPAP device last night. I have asked the nurses to see what we can do to rectify getting her machine used tonight. Her daily weight is basically unchanged overnight. Continue straight I&O, daily weight. Chest x-ray in the morning. I will further discuss with Dr. Nolen and await additional recommendations. ASSESSMENT/PLAN: 1. SHORTNESS OF BREATH -multifactorial to include acute on chronic CHF, severe pulmonary hypertension, obstructive sleep apnea. Will add albuterol nebs and incentive spirometry. She has been given additional Lasix today and hopefully urine output will increase. Chest x-ray in the morning 2. ACUTE ON CHRONIC CHF -secondary to systolic dysfunction (EF 45%) and diastolic dysfunction. NYHA Class IV. Continue with beta-blockers, avoiding YASMINE inhibitors for fear of worsening renal insufficiency. 3. PULMONARY HYPERTENSION, SEVERE - continue with current treatment plan 4. OBSTRUCTIVE SLEEP APNEA - working with nurse to get her device set up for tonight 5. CHRONIC KIDNEY DISEASE, STAGE III - appreciate Dr. Caraballo's assistance. 6. HYPERTENSION - adequately controlled. Avoiding YASMINE/ARB due to fear of worsening renal insufficiency 7. TACHYCARDIA -heart rate is better. Initially, thought this was atrial flutter however, may be her chronic RBBB and LAFB. She has been started on Eliquis, \ low-dose and will continue at present 8. DIABETES - adequately controlled 9. HYPERKALEMIA - BMP in am. May give one dose Kayexelate this afternoon. Exam (Progress Note) - Constitutional Vitals: Period Temp Pulse Resp BP Sys/Avina Pulse Ox Last 24 Hr 97.8 F-99.2 F 61-129 18-20 113-160/66-87 88-96 Exam: General: [Appears ill, frail. She is in no apparent distress. Sleeping but wakes and responds appropriately. ] HEENT: [Bilateral arcus, normocephalic, atraumatic. Mucous membranes moist. No jaundice noted. Conjunctiva moist and clear, sclerae anicteric] Neck: Unable to assess for JVD due to habitus. No thyromegaly or lymphadenopathy noted. No carotid bruit appreciated Cardiac: [Regular rate and rhythm.] [No obvious murmur rub or gallop.] Lungs: [Relatively clear to auscultation without accessory muscle use to assist the respiratory pattern.] Tachypneic when awake but comfortable at rest. Oxygen in use via nasal cannula Abdomen: Soft, bowel sounds normoactive. Nontender and nondistended. No abdominal bruit or thrill noted. No masses noted. Musculoskeletal: No fluid collection. Decreased range of motion is noted. Extremities: No clubbing, cyanosis noted. [ No edema noted.] Upper extremity pulses 2+. Lower extremity pulses 2+. Capillary refill less than 3 seconds. Skin: No unusual lesions or rashes. No skin breakdown appreciated. Neuro: Awake, alert and oriented 3. Moves all extremities well without hemiparesis or paralysis. No essential tremor is appreciated. Result/EKG - Labs CBC & BMP: 04/04/17 03:47 04/04/17 03:47 Lab Results: I have reviewed the past 24 hour labs Labs: Laboratory Results - last 24 hr 04/03/17 04/03/17 04/03/17 16:09 20:12 21:25 WBC RBC Hgb Hct MCV MCH MCHC RDW Plt Count MPV Neut % (Auto) Lymph % (Auto) [place] % (Auto) Eos % (Auto) Baso % (Auto) Neut # (Auto) Lymph # (Auto) [place] # (Auto) Eos # (Auto) Baso # (Auto) Immature Gran % Nucleated RBC % Immature Gran # Nucleated RBCs # Immature Plt Fraction Sodium Potassium Chloride Carbon Dioxide Anion Gap BUN Creatinine GFR Calculation BUN/Creatinine Ratio Glucose POC Glucose 194 H 190 H Calculated Osmolality Calcium Magnesium Urine Color [place]ha Urine Appearance Cloudy Urine pH 5.0 Ur Specific [place] 1.015 Urine Protein >=500 Urine Glucose (UA) 50 Urine Ketones Negative Urine Blood Large Urine Nitrate Negative Urine Bilirubin Negative Urine Urobilinogen 4.0 H Urine Leukocytes Moderate H Urine RBC 305 Urine WBC 15 Urine WBC Clumps Occasional Hyaline Casts 45 Granular Casts 20 Urine Mucus Occasional Ur Culture Indicated? Results to follow Ur Random Creatinine Ur Random Sodium Ur Random Potassium Ur Random Chloride 04/03/17 04/03/17 04/04/17 21:25 21:25 03:47 WBC 9.1 RBC 4.04 Hgb 10.6 L Hct 34.4 L MCV 85.1 L MCH 26 L MCHC 30.8 L RDW 18.6 H Plt Count 294 MPV 11.6 Neut % (Auto) 68.3 Lymph % (Auto) 16.6 L [place] % (Auto) 13.5 H Eos % (Auto) 0.7 Baso % (Auto) 0.2 Neut # (Auto) 6.3 Lymph # (Auto) 1.5 [place] # (Auto) 1.2 H Eos # (Auto) 0.1 Baso # (Auto) 0.0 Immature Gran % 0.7 Nucleated RBC % 0.9 Immature Gran # 0.06 Nucleated RBCs # 0.08 Immature Plt Fraction 0.0 Sodium Potassium Chloride Carbon Dioxide Anion Gap BUN Creatinine GFR Calculation BUN/Creatinine Ratio Glucose POC Glucose Calculated Osmolality Calcium Magnesium Urine Color Urine Appearance Urine pH Ur Specific [place] Urine Protein Urine Glucose (UA) Urine Ketones Urine Blood Urine Nitrate Urine Bilirubin Urine Urobilinogen Urine Leukocytes Urine RBC Urine WBC Urine WBC Clumps Hyaline Casts Granular Casts Urine Mucus Ur Culture Indicated? Ur Random Creatinine 299 Ur Random Sodium 21.0 Ur Random Potassium 47 Ur Random Chloride < 10 04/04/17 04/04/17 04/04/17 03:47 07:47 11:55 WBC RBC Hgb Hct MCV MCH MCHC RDW Plt Count MPV Neut % (Auto) Lymph % (Auto) [place] % (Auto) Eos % (Auto) Baso % (Auto) Neut # (Auto) Lymph # (Auto) [place] # (Auto) Eos # (Auto) Baso # (Auto) Immature Gran % Nucleated RBC % Immature Gran # Nucleated RBCs # Immature Plt Fraction Sodium 138 Potassium 5.7 H Chloride 106 Carbon Dioxide 21 Anion Gap 16.7 H BUN 30 H Creatinine 3.10 H GFR Calculation 18 BUN/Creatinine Ratio 9.00 Glucose 138 H POC Glucose 159 H 168 H Calculated Osmolality 282.7 Calcium 9.0 Magnesium 3.0 H Urine Color Urine Appearance Urine pH Ur Specific [place] Urine Protein Urine Glucose (UA) Urine Ketones Urine Blood Urine Nitrate Urine Bilirubin Urine Urobilinogen Urine Leukocytes Urine RBC Urine WBC Urine WBC Clumps Hyaline Casts Granular Casts Urine Mucus Ur Culture Indicated? Ur Random Creatinine Ur Random Sodium Ur Random Potassium Ur Random Chloride - EKG EKG results: interpreted by me EKG shows: tachycardia, sinus rhythm (Right bundle branch block, left anterior fascicular block. )
[2017-04-04] MEDS: INSULIN NPH 100 UNIT/ML SUBCUT SCH (16:15)
[2017-04-04] MEDS ORDERED: SODIUM POLYSTYRENE SULFATE 15 GM/60 ML BOTTLE PO ONE (16:40)
--- NOTE | 2017-04-04 17:18 | Hospitalist Progress Note ---
Assessment and Plan (1) Hypertension Status: Chronic Current Visit: Yes Qualifiers: Hypertension type: essential hypertension Qualified Code(s): I10 - Essential (primary) hypertension (2) Insulin dependent diabetes mellitus Status: Chronic Current Visit: Yes (3) Shortness of breath Status: Acute Assessment and plan: No evidence of PE or DVT CXR with with mild cardiac decompensation Current Visit: Yes (4) Pulmonary hypertension Status: Chronic Current Visit: Yes (5) Tachycardia Status: Acute Assessment and plan: Cardiology assisting Current Visit: Yes (6) Acute kidney injury Status: Resolved Assessment and plan: In our system, creatinine has ranged from 1.5 to 2.8 Today creatinine up to 3.10 from 2.0 on admission UA with moderate leukocytes, 15 wbc. will start rocephin and f/u urine culture Nephrology consulted Current Visit: Yes Hospitalist: Subjective Interval history: No acute events overnight. She denies chest pain. Does report some sob. Exam - Constitutional Vitals: Period Temp Pulse Resp BP Sys/Avina Pulse Ox Last 24 Hr 97.8 F-99.2 F 61-129 18-20 113-160/66-84 90-96 General appearance: over weight - Head Head exam: Present: normocephalic, atraumatic - Eye Eye exam: Present: EOMI Pupils: Present: POOJA - ENT ENT exam: Present: normal exam - Neck Neck exam: Present: normal inspection - Respiratory Respiratory exam: Present: clear to auscultation bilaterally. Absent: rhonchi, wheezes - Cardiovascular Cardiovascular exam: Present: regular rate and rhythm - GI/Abdominal GI/Abdominal exam: Present: normal bowel sounds, soft. Absent: tenderness, rebound - Extremities Exam Extremities exam: Present: normal inspection - Neurological Exam Neurological exam: Present: alert, oriented X3 - Psychiatric Psychiatric exam: Present: normal affect, normal mood - Skin Skin exam: Present: warm, intact Results - Labs CBC & BMP: 04/04/17 03:47 04/04/17 03:47
[2017-04-04] MEDS: SODIUM CHLORIDE 0.45% 1,000 ML IV SCH (21:09)
[2017-04-05 05:33] LABS: Basophils % 0.1 % (0.0-0.8); Eosinophils # 0.1 10*3/uL (0.0-0.87); Eosinophils % 1.4 % (0.00-10.9); Hematocrit 32.8 VOL% (35.7-47.0); Hemoglobin 10.2 GM/DL (12.0-16.0); Immature Granulocytes Absolute 0.09 #; Lymphocytes # 1.4 10*3/uL (1.4-4.0); Lymphocytes % 15.7 % (21.3-54.2); Mean Corpuscular HGB Conc 31.1 GM/DL (32-36); Mean Corpuscular Hemoglobin 26 PG (27-34); Mean Corpuscular Volume 84.8 FL (87-102); Mean Platelet Volume 11.4 FL (9.6-12.0); Monocytes # 1.5 10*3/uL (0.11-0.8); Monocytes % 17.4 % (1.7-12.7); NRBC # 0.13 10*3/uL; Neutrophils # 5.6 10*3/uL (1.4-7.4); Neutrophils % 64.4 % (38.7-73.9); Platelet Count 307 T/CUMM (130-400); Red Blood Count 3.87 MC/CUMM (3.8-5.5); Red Cell Distribution Width 18.6 % (9.3-17.3); White Blood Count 8.7 T/CUMM (4-12)
[2017-04-05 06:09] LABS: Nucleated Red Blood Cells 1 (0-5)
[2017-04-05 06:10] LABS: Anisocytosis 1+; Eosinophils 1 % (0-10); Lymphocytes 11 % (20-55); Macrocytosis 1+; Ovalocytes 1+; Platelet Estimate Normal; Polychromasia 2+; Segmented Neutrophils 68 % (50-85); Total Cells Counted 100
[2017-04-05 06:12] LABS: Calcium 8.8 MG/DL (8.5-10.1); Magnesium 2.9 MG/DL (1.8-2.4); Osmolality,Calculated 286.5 MOS/KG (273-304); Potassium 4.6 MMOL/L (3.5-5.1)
[2017-04-05] MEDS: INSULIN NPH 100 UNIT/ML SUBCUT SCH (08:27)
[2017-04-05] MEDS: DILTIAZEM 60 MG TABLET PO SCH ×2 (08:28→15:22)
[2017-04-05] MEDS: ASCORBIC ACID 500 MG TABLET PO SCH ×2 (08:28→22:16)
[2017-04-05] MEDS: APIXABAN 2.5 MG TABLET PO SCH ×2 (08:28→22:16)
[2017-04-05] MEDS: METOPROLOL SUCCINATE XL 100 MG TABLET PO SCH ×2 (08:28→22:16)
[2017-04-05] MEDS: ISOSORBIDE MONONITRATE 30 MG TABLET PO SCH (08:28)
[2017-04-05] MEDS: POTASSIUM CHLORIDE 20 MEQ TABLET PO SCH ×2 (08:28→22:15)
[2017-04-05] MEDS: cefTRIAXone 1,000 MG in SODIUM CHLORIDE 0.9% 100 ML IV SCH (08:29)
[2017-04-05] MEDS: ASPIRIN EC 81 MG TABLET PO SCH (08:29)
[2017-04-05] MEDS: INSULIN REGULAR 100 UNIT/ML SUBCUT SCH ×4 (08:29→22:17)
--- NOTE | 2017-04-05 11:24 | Nephrology Progress Note ---
Nephrology - PN: Subj Interval history: The patient is resting comfortably. Serum creatinine is noted be 3.5. Started IV fluids on yesterday. We will continue with IV fluids at this time. She mentions that her breathing feels fine. BMP in a.m. Exam (PN)-Nephrology - Vital Signs Vital signs: Period Temp Pulse Resp BP Sys/Avina Pulse Ox Last 24 Hr 97 F-98.4 F 86-127 18-20 114-137/72-99 88-94 - General Appearance General appearance: well-developed, well-nourished EENT: ATNC Neck: supple Respiratory: clear Cardiology: regular rate, regular rhythm Gastrointestinal: normoactive bowel sounds, no tenderness Integumentary: no rash Musculoskeletal: no deformities, no clubbing Psychiatric: mood/affect appropriate - Lab 04/05/17 05:09 04/05/17 05:09 Most recent lab results Calcium 8.8 MG/DL (8.5-10.1) 04/05/17 05:09 Magnesium 2.9 MG/DL (1.8-2.4) H 04/05/17 05:09 Assessment and Plan (1) CHF exacerbation Status: Acute Current Visit: Yes (2) Shortness of breath Status: Acute Assessment and plan: Now with oxygen therapy. Current Visit: Yes (3) Urinary tract infection Status: Acute Assessment and plan: Receiving antibiotics. Current Visit: Yes (4) Chronic kidney disease Status: Chronic Assessment and plan: Renal ultrasound shows evidence of chronic kidney disease. Decreased urine output today. Feel that patient may be intravascularly down. Will start with further fluid management Current Visit: Yes Qualifiers: Chronic kidney disease stage: stage 3 (moderate) Qualified Code(s): N18.3 - Chronic kidney disease, stage 3 (moderate) (5) Hypertension Status: Chronic Current Visit: Yes Qualifiers: Hypertension type: essential hypertension Qualified Code(s): I10 - Essential (primary) hypertension (6) Insulin dependent diabetes mellitus Status: Chronic Current Visit: Yes (7) Pulmonary hypertension Status: Chronic Current Visit: Yes (8) Sleep apnea Status: Chronic Current Visit: Yes
[2017-04-05 11:37] LABS: Apearance,Urine Clear (Clear); Bacteria,Urine Occasional /HPF (Few); Bilirubin,Urine Negative (Negative); Blood, Urine Trace mg/dL (Negative); Glucose,Urine (UA) Negative (Negative); Ketones,Urine Negative (Negative); Mucus,Urine Occasional /LPF (Occasional); Nitrite,Urine Negative (Negative); Protein,Urine 100 MG/DL; RBC,Urine 79 /HPF (0-4); Squamous Epithelial Cell,Urine Occasional /HPF (0-10); Urine Color Yellow (Yellow); WBC,Urine 5 /HPF (0-6)
--- NOTE | 2017-04-05 14:11 | Cardiology Progress Note ---
Assessment and Plan - Time spent with patient Time spent with patient: Greater than 30 minutes (1) Acute on chronic diastolic CHF (congestive heart failure), NYHA class 4 Status: Acute Assessment and plan: SEE PLAN OF CARE LISTED BELOW Current Visit: Yes (2) Acute kidney injury Status: Resolved Current Visit: Yes (3) Pulmonary hypertension Status: Chronic Assessment and plan: SEE PLAN OF CARE LISTED BELOW Current Visit: Yes (4) Tachycardia Status: Acute Assessment and plan: SEE PLAN OF CARE LISTED BELOW Current Visit: Yes (5) Urinary tract infection Status: Acute Assessment and plan: SEE PLAN OF CARE LISTED BELOW Current Visit: Yes (6) Sleep apnea Status: Chronic Assessment and plan: SEE PLAN OF CARE LISTED BELOW Current Visit: Yes (7) Chronic kidney disease Status: Chronic Assessment and plan: SEE PLAN OF CARE LISTED BELOW Current Visit: Yes Qualifiers: Chronic kidney disease stage: stage 3 (moderate) Qualified Code(s): N18.3 - Chronic kidney disease, stage 3 (moderate) (8) Atrial fibrillation with rapid ventricular response Status: Acute Assessment and plan: SEE PLAN OF CARE LISTED BELOW Current Visit: Yes Cardiology - PN: Subj Interval history: [place] RADIO OPERATOR: DR. NOWAK PCP: DR. JORDAN SUMMARY: Ms. Benavides, 87BF, with a history of hypertension, left ventricular hypertrophy with diastolic dysfunction, severe pulmonary hypertension, obstructive sleep apnea, chronic right bundle branch block. She was admitted April 01, 2017 with shortness of breath. Pulmonary embolism was ruled out with VQ scan, lower extremity venous Dopplers are negative. She is being treated for multifactorial shortness of breath to include acute CHF, severe pulmonary hypertension, obstructive sleep apnea. Echocardiogram: EF 45%, PAP 77 mmHg. She was admitted with a faster heart rate of about 120 bpm. Heart rhythm has been unclear without obvious atrial fibrillation or flutter. She does have a history of right bundle branch block and left anterior fascicular block and her EKG looks similar to prior EKGs. She is being treated for urinary tract infection. APRIL 03, 2017: This morning Ms. Benavides reports her breathing has improved, that is not back to her baseline. She denies any chest pain or discomfort. She says she feels at times as if her heart is racing. social work job titles currently shows what appears to be an atrial tachycardia or atrial flutter with heart rates of approximately 130. Over the weekend her Norvasc was decreased and she was started on Cardizem 30 mg p.o. 3 times daily. She is on Lasix 40 mg IV daily. She reports the swelling in her abdomen and lower extremities is less than on admission. Her kidney function has climbed slightly to 2.5 this morning. Her CPAP machine is at bedside, she states that they left the cord at home so she was unable to use it last night. Someone is supposed to bring it today so hopefully she will be able to use that tonight. APRIL 04, 2017: While sleeping, Ms. Benavides appears to be very comfortable without labored breathing. When I awaken speak with Ms. benavides, she is somewhat tachypneic. She denies chest pain, heaviness, tightness. Unfortunately, kidney function has worsened overnight. She has had very little output and Dr. Caraballo has ordered additional IV Lasix to be given at this time. She still did not use her CPAP device last night. I have asked the nurses to see what we can do to rectify getting her machine used tonight. Her daily weight is basically unchanged overnight. Continue straight I&O, daily weight. Chest x-ray in the morning. I will further discuss with Dr. Nolen and await additional recommendations. APRIL 05, 2017: Ms. Benavides looks better today. She is currently receiving IV resuscitation as she may be volume depleted. Breathing is slightly better although she still remains tachypneic. Daily weight is entirely unchanged and the I and O's inaccurate. I will verify this is more diligently recorded in the future. Creatinine continues to climb at 3.5. Hopefully, with hydration her heart rate will improve as she is been mildly tachycardic, atrial fibrillation. Blood pressure is adequately controlled. I will further discuss with Dr. Nolen and await additional recommendations. ASSESSMENT/PLAN: 1. SHORTNESS OF BREATH - multifactorial to include acute on chronic CHF, severe pulmonary hypertension, obstructive sleep apnea. Continue Albuterol nebs and incentive spirometry. Slow improvement. CXR in am. 2. ACUTE ON CHRONIC CHF - secondary to systolic dysfunction (EF 45%) and diastolic dysfunction. NYHA Class IV. Continue with beta-blockers, avoiding YASMINE inhibitors for fear of worsening renal insufficiency. 3. PULMONARY HYPERTENSION, SEVERE - continue with current treatment plan 4. OBSTRUCTIVE SLEEP APNEA - working with nurse to get her device set up correctly 5. CHRONIC KIDNEY DISEASE, STAGE III - appreciate Dr. Caraballo's assistance. 6. HYPERTENSION - adequately controlled. Avoiding YASMINE/ARB due to fear of worsening renal insufficiency 7. ATRIAL FIBRILLATION WITH RAPID VENTRICULAR RESPONSE - heart rate is better with hydration. Continue low-dose Eliquis at this time. 8. DIABETES - adequately controlled 9. HYPERKALEMIA -resolved after hydration and Kayexalate. BMP in am. Exam (Progress Note) - Constitutional Vitals: Period Temp Pulse Resp BP Sys/Avina Pulse Ox Last 24 Hr 97 F-98.4 F 86-127 18-20 114-137/73-99 88-92 Exam: General: [Appears ill, frail. She is in no apparent distress. Sleeping but wakes and responds appropriately. ] HEENT: [Bilateral arcus, normocephalic, atraumatic. Mucous membranes moist. No jaundice noted. Conjunctiva moist and clear, sclerae anicteric] Neck: Unable to assess for JVD due to habitus. No thyromegaly or lymphadenopathy noted. No carotid bruit appreciated Cardiac: [Irregularly irregular rhythm, fast rate] [No obvious murmur rub or gallop.] Lungs: [Relatively clear to auscultation without accessory muscle use to assist the respiratory pattern.] Tachypneic when awake but comfortable at rest. Oxygen in use via nasal cannula Abdomen: Soft, bowel sounds normoactive. Nontender and nondistended. No abdominal bruit or thrill noted. No masses noted. Musculoskeletal: No fluid collection. Decreased range of motion is noted. Extremities: No clubbing, cyanosis noted. [ No edema noted.] Upper extremity pulses 2+. Lower extremity pulses 2+. Capillary refill less than 3 seconds. Skin: No unusual lesions or rashes. No skin breakdown appreciated. Neuro: Awake, alert and oriented 3. Moves all extremities well without hemiparesis or paralysis. No essential tremor is appreciated. Result/EKG - Labs CBC & BMP: 04/05/17 05:09 04/05/17 05:09 Lab Results: I have reviewed the past 24 hour labs Labs: Laboratory Results - last 24 hr 04/04/17 04/04/17 04/05/17 15:28 19:31 05:09 WBC 8.7 RBC 3.87 Hgb 10.2 L Hct 32.8 L MCV 84.8 L MCH 26 L MCHC 31.1 L RDW 18.6 H Plt Count 307 MPV 11.4 Neut % (Auto) 64.4 Lymph % (Auto) 15.7 L [place] % (Auto) 17.4 H Eos % (Auto) 1.4 Baso % (Auto) 0.1 Neut # (Auto) 5.6 Lymph # (Auto) 1.4 [place] # (Auto) 1.5 H Eos # (Auto) 0.1 Baso # (Auto) 0.0 Total Counted 100 Immature Gran % 1.0 Nucleated RBC % 1.5 Immature Gran # 0.09 Segmented Neutrophils 68 Lymphocytes 11 L Monocytes 20 H Eosinophils 1 Nucleated RBCs 1 Nucleated RBCs # 0.13 Platelet Estimate Normal Immature Plt Fraction 0.0 Polychromasia 2+ Anisocytosis 1+ Macrocytosis 1+ Ovalocytes 1+ Sodium Potassium Chloride Carbon Dioxide Anion Gap BUN Creatinine GFR Calculation BUN/Creatinine Ratio Glucose POC Glucose 167 H 167 H Calculated Osmolality Calcium Magnesium Urine Color Urine Appearance Urine pH Ur Specific [place] Urine Protein Urine Glucose (UA) Urine Ketones Urine Blood Urine Nitrate Urine Bilirubin Urine Urobilinogen Urine Leukocytes Urine RBC Urine WBC Ur Squamous Epith Cells Urine Bacteria Urine Mucus Ur Culture Indicated? 04/05/17 04/05/17 04/05/17 05:09 08:00 11:26 WBC RBC Hgb Hct MCV MCH MCHC RDW Plt Count MPV Neut % (Auto) Lymph % (Auto) [place] % (Auto) Eos % (Auto) Baso % (Auto) Neut # (Auto) Lymph # (Auto) [place] # (Auto) Eos # (Auto) Baso # (Auto) Total Counted Immature Gran % Nucleated RBC % Immature Gran # Segmented Neutrophils Lymphocytes Monocytes Eosinophils Nucleated RBCs Nucleated RBCs # Platelet Estimate Immature Plt Fraction Polychromasia Anisocytosis Macrocytosis Ovalocytes Sodium 139 Potassium 4.6 Chloride 105 Carbon Dioxide 22 Anion Gap 16.6 H BUN 36 H Creatinine 3.50 H GFR Calculation 16 BUN/Creatinine Ratio 10.00 Glucose 129 H POC Glucose 134 H Calculated Osmolality 286.5 Calcium 8.8 Magnesium 2.9 H Urine Color Yellow Urine Appearance Clear Urine pH 5.0 Ur Specific [place] 1.010 Urine Protein 100 Urine Glucose (UA) Negative Urine Ketones Negative Urine Blood Trace Urine Nitrate Negative Urine Bilirubin Negative Urine Urobilinogen 2.0 H Urine Leukocytes Trace Urine RBC 79 Urine WBC 5 Ur Squamous Epith Cells Occasional Urine Bacteria Occasional Urine Mucus Occasional Ur Culture Indicated? Not indicated 04/05/17 11:38 WBC RBC Hgb Hct MCV MCH MCHC RDW Plt Count MPV Neut % (Auto) Lymph % (Auto) [place] % (Auto) Eos % (Auto) Baso % (Auto) Neut # (Auto) Lymph # (Auto) [place] # (Auto) Eos # (Auto) Baso # (Auto) Total Counted Immature Gran % Nucleated RBC % Immature Gran # Segmented Neutrophils Lymphocytes Monocytes Eosinophils Nucleated RBCs Nucleated RBCs # Platelet Estimate Immature Plt Fraction Polychromasia Anisocytosis Macrocytosis Ovalocytes Sodium Potassium Chloride Carbon Dioxide Anion Gap BUN Creatinine GFR Calculation BUN/Creatinine Ratio Glucose POC Glucose 150 H Calculated Osmolality Calcium Magnesium Urine Color Urine Appearance Urine pH Ur Specific [place] Urine Protein Urine Glucose (UA) Urine Ketones Urine Blood Urine Nitrate Urine Bilirubin Urine Urobilinogen Urine Leukocytes Urine RBC Urine WBC Ur Squamous Epith Cells Urine Bacteria Urine Mucus Ur Culture Indicated? - EKG EKG results: interpreted by me EKG shows: atrial fibrillation
--- NOTE | 2017-04-05 16:08 | Hospitalist Progress Note ---
Assessment and Plan (1) Hypertension Status: Chronic Current Visit: Yes Qualifiers: Hypertension type: essential hypertension Qualified Code(s): I10 - Essential (primary) hypertension (2) Insulin dependent diabetes mellitus Status: Chronic Current Visit: Yes (3) Shortness of breath Status: Acute Assessment and plan: No evidence of PE or DVT CXR with with mild cardiac decompensation, will repeat in am Current Visit: Yes (4) Pulmonary hypertension Status: Chronic Current Visit: Yes (5) Tachycardia Status: Acute Assessment and plan: Cardiology assisting Current Visit: Yes (6) Acute kidney injury Status: Resolved Assessment and plan: In our system, creatinine has ranged from 1.5 to 2.8 Today creatinine up to 3.5 from 3.0 on admission UA with moderate leukocytes, 15 wbc. Continue rocephin for now Nephrology managing Started IV fluids Will monitor closely Current Visit: Yes Hospitalist: Subjective Interval history: No acute events overnight. She reports that her breathing is better today. Exam - Constitutional Vitals: Period Temp Pulse Resp BP Sys/Avina Pulse Ox Last 24 Hr 97 F-98.4 F 93-127 18-20 114-137/73-99 88-92 General appearance: over weight - Head Head exam: Present: normocephalic, atraumatic - Eye Eye exam: Present: EOMI Pupils: Present: POOJA - ENT ENT exam: Present: normal exam - Neck Neck exam: Present: normal inspection - Respiratory Respiratory exam: Present: clear to auscultation bilaterally. Absent: rhonchi, wheezes - Cardiovascular Cardiovascular exam: Present: regular rate and rhythm - GI/Abdominal GI/Abdominal exam: Present: normal bowel sounds, soft. Absent: tenderness, rebound - Extremities Exam Extremities exam: Present: normal inspection - Back Exam Back exam: Present: normal inspection - Neurological Exam Neurological exam: Present: alert, oriented X3 - Psychiatric Psychiatric exam: Present: normal affect, normal mood - Skin Skin exam: Present: warm, intact Results - Labs CBC & BMP: 04/05/17 05:09 04/05/17 05:09
[2017-04-05] MEDS: SODIUM CHLORIDE 0.45% 1,000 ML IV SCH (16:39)
[2017-04-05] MEDS: DILTIAZEM 30 MG TABLET PO SCH (22:14)
[2017-04-06 06:14] LABS: Basophils % 0.2 % (0.0-0.8); Eosinophils # 0.1 10*3/uL (0.0-0.87); Eosinophils % 1.4 % (0.00-10.9); Hematocrit 33.3 VOL% (35.7-47.0); Hemoglobin 10.3 GM/DL (12.0-16.0); Immature Granulocytes % 0.7 %; Immature Granulocytes Absolute 0.06 #; Lymphocytes # 1.5 10*3/uL (1.4-4.0); Lymphocytes % 18.2 % (21.3-54.2); Mean Corpuscular HGB Conc 30.9 GM/DL (32-36); Mean Corpuscular Hemoglobin 26 PG (27-34); Mean Corpuscular Volume 83.7 FL (87-102); Mean Platelet Volume 11.4 FL (9.6-12.0); Monocytes # 1.6 10*3/uL (0.11-0.8); Monocytes % 18.5 % (1.7-12.7); NRBC # 0.05 10*3/uL; Neutrophils # 5.1 10*3/uL (1.4-7.4); Platelet Count 324 T/CUMM (130-400); Red Blood Count 3.98 MC/CUMM (3.8-5.5); Red Cell Distribution Width 18.8 % (9.3-17.3); White Blood Count 8.4 T/CUMM (4-12)
[2017-04-06 06:51] LABS: Calcium 8.7 MG/DL (8.5-10.1); Magnesium 2.8 MG/DL (1.8-2.4); Osmolality,Calculated 282.7 MOS/KG (273-304); Potassium 4.4 MMOL/L (3.5-5.1)
[2017-04-06 06:56] LABS: Calcium 8.5 MG/DL (8.5-10.1); Osmolality,Calculated 284.5 MOS/KG (273-304); Potassium 4.4 MMOL/L (3.5-5.1)
[2017-04-06 07:16] LABS: Burr Cells Slight; Elliptocytes Few; Eosinophils 1 % (0-10); Giant Platelets Few; Hypochromasia 1+; Lymphocytes 8 % (20-55); Macrocytosis Slight; Platelet Estimate Adequate; Segmented Neutrophils 80 % (50-85); Total Cells Counted 100
[2017-04-06] MEDS: cefTRIAXone 1,000 MG in SODIUM CHLORIDE 0.9% 100 ML IV SCH (08:25)
[2017-04-06] MEDS: INSULIN NPH 100 UNIT/ML SUBCUT SCH (08:26)
--- NOTE | 2017-04-06 08:26 | XRay Report ---
Portable chest Date: 04/06/2017 Clinical history: Shortness of breath Comparison: 04/03/2017 Technique: Portable AP sitting chest Findings: The heart is smaller in size with reduced parenchymal findings and smaller pleural effusions. Postoperative findings in the left axilla with degenerative changes. Impression: Improved CHF with smaller pleural effusions. PROCEDURE INTERPRETED AT [facility] DEPARTMENT OF RADIOLOGY Final Report Signed by: Dr. Mary Christine
[2017-04-06] MEDS: APIXABAN 2.5 MG TABLET PO SCH ×2 (08:27→22:30)
[2017-04-06] MEDS: METOPROLOL SUCCINATE XL 100 MG TABLET PO SCH ×2 (08:27→22:30)
[2017-04-06] MEDS: ISOSORBIDE MONONITRATE 30 MG TABLET PO SCH (08:27)
[2017-04-06] MEDS: ASPIRIN EC 81 MG TABLET PO SCH (08:27)
[2017-04-06] MEDS: POTASSIUM CHLORIDE 20 MEQ TABLET PO SCH ×2 (08:28→22:30)
[2017-04-06] MEDS: DILTIAZEM 30 MG TABLET PO SCH ×2 (08:35→15:41)
[2017-04-06] MEDS: ASCORBIC ACID 500 MG TABLET PO SCH ×2 (08:36→22:29)
[2017-04-06] MEDS: INSULIN REGULAR 100 UNIT/ML SUBCUT SCH ×4 (09:25→22:30)
--- NOTE | 2017-04-06 12:05 | Nephrology Progress Note ---
Nephrology - PN: Subj Interval history: 04/05/2017. The patient is resting comfortably. Serum creatinine is noted be 3.5. Started IV fluids on yesterday. We will continue with IV fluids at this time. She mentions that her breathing feels fine. BMP in a.m. 04/06/2017. The patient is resting comfortably. Serum creatinine is noted to be down to 3.3. Exam (PN)-Nephrology - Vital Signs Vital signs: Period Temp Pulse Resp BP Sys/Avina Pulse Ox Last 24 Hr 97.3 F-98.6 F 95-124 18-24 124-159/77-88 90-94 - General Appearance General appearance: well-developed, well-nourished EENT: ATNC Neck: supple Respiratory: clear Cardiology: regular rate, regular rhythm Gastrointestinal: normoactive bowel sounds, no tenderness - Lab 04/06/17 03:57 04/06/17 03:57 Most recent lab results Calcium 8.5 MG/DL (8.5-10.1) 04/06/17 03:57 Magnesium 2.8 MG/DL (1.8-2.4) H 04/06/17 03:57 Assessment and Plan (1) CHF exacerbation Status: Acute Current Visit: Yes (2) Shortness of breath Status: Acute Assessment and plan: Now with oxygen therapy. Current Visit: Yes (3) Urinary tract infection Status: Acute Assessment and plan: Receiving antibiotics. Current Visit: Yes (4) Chronic kidney disease Status: Chronic Assessment and plan: Renal ultrasound shows evidence of chronic kidney disease Feel that patient may be intravascularly down. Continue fluid management Current Visit: Yes Qualifiers: Chronic kidney disease stage: stage 3 (moderate) Qualified Code(s): N18.3 - Chronic kidney disease, stage 3 (moderate) (5) Hypertension Status: Chronic Current Visit: Yes Qualifiers: Hypertension type: essential hypertension Qualified Code(s): I10 - Essential (primary) hypertension (6) Insulin dependent diabetes mellitus Status: Chronic Current Visit: Yes (7) Pulmonary hypertension Status: Chronic Current Visit: Yes (8) Sleep apnea Status: Chronic Current Visit: Yes
--- NOTE | 2017-04-06 15:54 | Cardiology Progress Note ---
I, Dara Murry RN, am scribing for, and in the presence of, Denys Nolen MD 15:53. Assessment and Plan - Time spent with patient Time spent with patient: Greater than 30 minutes (1) Atrial fibrillation with rapid ventricular response Status: Acute Assessment and plan: Her heart rate is now adequately controlled on medical therapy. Clinically she is improved. She is on proper stroke prophylaxis. Her cardiac status is well compensated. I am going to drop off of her case at this time. Please call if I can be of further assistance. The patient should have a follow-up with Dr. Wolfe on a routine basis after discharge. Current Visit: Yes (2) Acute on chronic diastolic CHF (congestive heart failure), NYHA class 4 Status: Chronic Assessment and plan: CHF secondary to systolic dysfunction with slightly decreased EF 45% and moderate diastolic dysfunction, NYHA class III-IV. Continue beta elvis. Avoiding YASMINE inhibitors and ARBs due to renal insufficiency. Current Visit: Yes (3) Acute kidney injury Status: Resolved Assessment and plan: Appears to be slightly improved today. Patient has been hydrated with IV fluids. Avoiding nephrotoxic agents as able. Current Visit: Yes (4) Shortness of breath Status: Acute Assessment and plan: This is improved today. Shortness of breath is multifactorial due to acute on chronic diastolic congestive heart failure, severe pulmonary hypertension, and obstructive sleep apnea. Chest x-ray this morning with improved CHF. Current Visit: Yes (5) Tachycardia Status: Acute Current Visit: Yes (6) Urinary tract infection Status: Acute Assessment and plan: On appropriate IV antibiotics. Will defer management to attending physician. Current Visit: Yes (7) Chronic kidney disease Status: Chronic Assessment and plan: Avoiding nephrotoxic agents as possible. Nephrology following also. Current Visit: Yes Qualifiers: Chronic kidney disease stage: stage 3 (moderate) Qualified Code(s): N18.3 - Chronic kidney disease, stage 3 (moderate) (8) Hypertension Status: Chronic Assessment and plan: Well controlled at this time. Continue as present. Current Visit: Yes Qualifiers: Hypertension type: essential hypertension Qualified Code(s): I10 - Essential (primary) hypertension (9) Insulin dependent diabetes mellitus Status: Chronic Assessment and plan: Glucose levels relatively well controlled. Continue current plan of care. Defer primary management to attending physician. Current Visit: Yes (10) Pulmonary hypertension Status: Chronic Assessment and plan: Severe pulmonary hypertension. We will continue current plan of care. Current Visit: Yes (11) Sleep apnea Status: Chronic Assessment and plan: Patient is using her CPAP. Continue CPAP Current Visit: Yes Cardiology - PN: Subj Interval history: Rn Relief Charge: Dr. Wolfe Summary: Ms. Churchill, 87-year-old BF, with PMHx hypertension, LVH with diastolic dysfunction, severe pulmonary hypertension, ANASTACIO, chronic right bundle branch block, chronic kidney disease. Patient was admitted to [facility] telemetry on 04/01 with shortness of breath. Since admission, pulmonary embolism ruled out with VQ scan, venous Dopplers of lower extremities negative. Patient is now being treated for multifactorial shortness of breath to include pulmonary hypertension, ANASTACIO, acute on chronic diastolic congestive heart failure, NYHA class IV. Echocardiogram this admission EF 45%, PA pressure 77 mmHg. Patient also has history of right bundle branch block and left anterior fascicular block , and this admission she has had an atrial tachycardia which had review of previous EKGs, looks similar. Also, she is being treated for UTI and acute kidney injury. March: Ms. Churchill resting quietly this afternoon and appears comfortable but is drowsy. Reports she is using her CPAP without difficulty. No significant tachypnea with conversation today, and she reports that she does feel better today than yesterday. Tachycardia with pulse rate no greater than 125. Creatinine slightly improved and 3.2 today (3.5 previously). SBP 120-140 mmHg. Chest x-ray this morning with improvement CHF, smaller pleural effusions. Other labs reviewed. Cell counts unremarkable. Electrolytes within acceptable range. Her arrhythmia seems to be adequately controlled on her current medical regimen and she is on proper anticoagulation for stroke prophylaxis. I do not see any reason to make any changes or management at this time. I am going to drop off of her case. If I can be of further assistance please give us a call. Current Medications Apixaban (Eliquis) 2.5 mg PO BID [facility] Last Admin: 04/06/17 08:27 Dose: 2.5 mg Ascorbic Acid (Vitamin C Tab) 1,000 mg PO BID [facility] Last Admin: 04/06/17 08:36 Dose: 1,000 mg Aspirin () 81 mg PO DAILY [facility] Last Admin: 04/06/17 08:27 Dose: 81 mg Dextrose/Water (D50) 25 gm IV PRN PRN PRN Reason: Hypoglycemia with IV access Diltiazem HCl (Cardizem Tab) 90 mg PO TID [facility] Last Admin: 04/06/17 08:35 Dose: 90 mg Glucagon () 1 mg IM PRN PRN PRN Reason: Hypoglycemia w/o IV access Guaifenesin (Mucinex) 600 mg PO BID [facility] Last Admin: 04/06/17 12:20 Dose: 600 mg Ceftriaxone Sodium 1,000 mg/ (Sodium Chloride) 100 mls @ 200 mls/hr IV Q24H [facility] Last Admin: 04/06/17 08:25 Dose: 200 mls/hr Insulin Human NPH (Humulin N) 10 unit SUBCUT QAM [facility] Last Admin: 04/06/17 08:26 Dose: 10 unit Insulin Human Regular (Humulin R) 0 unit SUBCUT ACHS [facility] PRN Reason: Protocol Last Admin: 04/06/17 11:45 Dose: 2 unit Isosorbide Mononitrate (Imdur) 30 mg PO DAILY [facility] Last Admin: 04/06/17 08:27 Dose: 30 mg Metoprolol Succinate (Toprol Xl) 100 mg PO BID [facility] Last Admin: 04/06/17 08:27 Dose: 100 mg Potassium Chloride (K Dur) 20 meq PO BID [facility] Last Admin: 04/06/17 08:28 Dose: 20 meq Zinc Oxide (Desitin Paste) 1 applic TOP PRN PRN PRN Reason: Diaper Rash Exam (Progress Note) - Constitutional Vitals: Period Temp Pulse Resp BP Sys/Avina Pulse Ox Last 24 Hr 97.3 F-98.6 F 95-124 18-24 121-159/76-88 90-95 Exam: General:Appears ill, frail. She is in no apparent distress. Drowsy but wakes and responds appropriately. Morbidly obese. HEENT: Bilateral arcus, normocephalic, atraumatic. Mucous membranes moist. No jaundice noted. Conjunctiva moist and clear, sclerae anicteric] Neck: Unable to assess for JVD due to habitus. No thyromegaly or lymphadenopathy noted. No carotid bruit appreciated Cardiac: Irregularly irregular rhythm, tachycardia [No obvious murmur rub or gallop.] Lungs: Overall clear to auscultation anteriorly without accessory muscle use to assist the respiratory pattern. Tachypneic improved today. No supplemental oxygen this afternoon. Abdomen: Soft, bowel sounds normoactive. Nontender and nondistended. No abdominal bruit or thrill noted. No masses noted. Musculoskeletal: No fluid collection. Decreased range of motion is noted. Extremities: No clubbing, diaphoresis, cyanosis noted. No edema noted. Upper extremity pulses 2+. Lower extremity pulses 2+. Capillary refill less than 3 seconds. Skin: No unusual lesions or rashes. No skin breakdown appreciated. Skin warm, dry. Neuro: Awake, alert and oriented 3. Moves all extremities well without hemiparesis or paralysis. No essential tremor is appreciated. Result/EKG - Labs CBC & BMP: 04/06/17 03:57 04/06/17 03:57 Lab Results: I have reviewed the past 24 hour labs Labs: Laboratory Results - last 24 hr 04/05/17 04/05/17 04/06/17 16:21 20:49 03:57 WBC 8.4 RBC 3.98 Hgb 10.3 L Hct 33.3 L MCV 83.7 L MCH 26 L MCHC 30.9 L RDW 18.8 H Plt Count 324 MPV 11.4 Neut % (Auto) 61.0 Lymph % (Auto) 18.2 L Buchanan % (Auto) 18.5 H Eos % (Auto) 1.4 Baso % (Auto) 0.2 Neut # (Auto) 5.1 Lymph # (Auto) 1.5 Buchanan # (Auto) 1.6 H Eos # (Auto) 0.1 Baso # (Auto) 0.0 Total Counted 100 Immature Gran % 0.7 Nucleated RBC % 0.6 Immature Gran # 0.06 Segmented Neutrophils 80 Lymphocytes 8 L Monocytes 11 Eosinophils 1 Nucleated RBCs # 0.05 Platelet Estimate Adequate Giant Platelets Few Immature Plt Fraction 0.0 Hypochromasia 1+ Macrocytosis Slight Fisher Cells Slight Elliptocytes Few Sodium Potassium Chloride Carbon Dioxide Anion Gap BUN Creatinine GFR Calculation BUN/Creatinine Ratio Glucose POC Glucose 145 H 144 H Calculated Osmolality Calcium Magnesium 04/06/17 04/06/17 04/06/17 03:57 03:57 07:47 WBC RBC Hgb Hct MCV MCH MCHC RDW Plt Count MPV Neut % (Auto) Lymph % (Auto) Buchanan % (Auto) Eos % (Auto) Baso % (Auto) Neut # (Auto) Lymph # (Auto) Buchanan # (Auto) Eos # (Auto) Baso # (Auto) Total Counted Immature Gran % Nucleated RBC % Immature Gran # Segmented Neutrophils Lymphocytes Monocytes Eosinophils Nucleated RBCs # Platelet Estimate Giant Platelets Immature Plt Fraction Hypochromasia Macrocytosis Fisher Cells Elliptocytes Sodium 138 139 Potassium 4.4 4.4 Chloride 104 105 Carbon Dioxide 24 24 Anion Gap 14.4 14.4 BUN 36 H 36 H Creatinine 3.20 H 3.30 H GFR Calculation 18 17 BUN/Creatinine Ratio 11.00 10.00 Glucose 100 98 POC Glucose 126 H Calculated Osmolality 282.7 284.5 Calcium 8.7 8.5 Magnesium 2.8 H 04/06/17 11:11 WBC RBC Hgb Hct MCV MCH MCHC RDW Plt Count MPV Neut % (Auto) Lymph % (Auto) Buchanan % (Auto) Eos % (Auto) Baso % (Auto) Neut # (Auto) Lymph # (Auto) Buchanan # (Auto) Eos # (Auto) Baso # (Auto) Total Counted Immature Gran % Nucleated RBC % Immature Gran # Segmented Neutrophils Lymphocytes Monocytes Eosinophils Nucleated RBCs # Platelet Estimate Giant Platelets Immature Plt Fraction Hypochromasia Macrocytosis Ben Cells Elliptocytes Sodium Potassium Chloride Carbon Dioxide Anion Gap BUN Creatinine GFR Calculation BUN/Creatinine Ratio Glucose POC Glucose 153 H Calculated Osmolality Calcium Magnesium - EKG EKG results: interpreted by me, no acute changes EKG shows: sinus rhythm Tamanna Jones Michael, MD, personally performed the services described in this documentation, ascribed by Dara Murry RN in my presence, and it is both accurate and complete 553 .
--- NOTE | 2017-04-06 16:12 | Hospitalist Progress Note ---
Assessment and Plan (1) Hypertension Status: Chronic Assessment and plan: Controlled Current Visit: Yes Qualifiers: Hypertension type: essential hypertension Qualified Code(s): I10 - Essential (primary) hypertension (2) Insulin dependent diabetes mellitus Status: Chronic Current Visit: Yes (3) Shortness of breath Status: Acute Assessment and plan: No evidence of PE or DVT CXR with improvement Mucinex Duonebs prn Current Visit: Yes (4) Pulmonary hypertension Status: Chronic Current Visit: Yes (5) Tachycardia Status: Acute Assessment and plan: Cardiology assisting Current Visit: Yes (6) Acute kidney injury Status: Resolved Assessment and plan: In our system, creatinine has ranged from 1.5 to 2.8 Creatinine down slightly down UA with moderate leukocytes, 15 wbc. Continue rocephin for now Nephrology managing Current Visit: Yes Hospitalist: Subjective Interval history: No acute events overnight. She reports that her breathing feels better. Earlier today noted some congestion, but improved now. Exam - Constitutional Vitals: Period Temp Pulse Resp BP Sys/Avina Pulse Ox Last 24 Hr 97.3 F-98.6 F 95-120 18-24 121-144/76-86 90-95 General appearance: over weight - Head Head exam: Present: normocephalic, atraumatic - Eye Eye exam: Present: EOMI Pupils: Present: POOJA - ENT ENT exam: Present: normal exam - Neck Neck exam: Present: normal inspection - Respiratory Respiratory exam: Present: clear to auscultation bilaterally - Cardiovascular Cardiovascular exam: Present: regular rate and rhythm - GI/Abdominal GI/Abdominal exam: Present: normal bowel sounds, soft. Absent: tenderness, rebound - Extremities Exam Extremities exam: Present: normal inspection - Back Exam Back exam: Present: normal inspection - Neurological Exam Neurological exam: Present: alert, oriented X3 - Psychiatric Psychiatric exam: Present: normal affect, normal mood - Skin Skin exam: Present: warm, intact Results - Labs CBC & BMP: 04/06/17 03:57 04/06/17 03:57
[2017-04-06] MEDS: DILTIAZEM CD 240 MG CAPSULE PO SCH (18:08)
[2017-04-07 05:13] LABS: Basophils % 0.3 % (0.0-0.8); Eosinophils # 0.1 10*3/uL (0.0-0.87); Eosinophils % 1.3 % (0.00-10.9); Hematocrit 33.3 VOL% (35.7-47.0); Hemoglobin 10.6 GM/DL (12.0-16.0); Immature Granulocytes % 0.9 %; Immature Granulocytes Absolute 0.07 #; Lymphocytes # 1.4 10*3/uL (1.4-4.0); Lymphocytes % 18.2 % (21.3-54.2); Mean Corpuscular HGB Conc 31.8 GM/DL (32-36); Mean Corpuscular Hemoglobin 27 PG (27-34); Mean Corpuscular Volume 83.9 FL (87-102); Mean Platelet Volume 11.1 FL (9.6-12.0); Monocytes # 1.5 10*3/uL (0.11-0.8); Monocytes % 19.3 % (1.7-12.7); NRBC # 0.04 10*3/uL; Neutrophils # 4.6 10*3/uL (1.4-7.4); Platelet Count 323 T/CUMM (130-400); Red Blood Count 3.97 MC/CUMM (3.8-5.5); White Blood Count 7.6 T/CUMM (4-12)
[2017-04-07 05:44] LABS: Burr Cells Slight; Giant Platelets Few; Hypochromasia 1+; Lymphocytes 15 % (20-55); Macrocytosis Slight; Ovalocytes Slight; Platelet Estimate Adequate; Segmented Neutrophils 74 % (50-85); Total Cells Counted 100
[2017-04-07 05:45] LABS: Calcium 8.7 MG/DL (8.5-10.1); Magnesium 2.8 MG/DL (1.8-2.4); Osmolality,Calculated 286.4 MOS/KG (273-304); Potassium 4.5 MMOL/L (3.5-5.1)
[2017-04-07] MEDS: INSULIN NPH 100 UNIT/ML SUBCUT SCH (09:44)
[2017-04-07] MEDS: DILTIAZEM CD 240 MG CAPSULE PO SCH (09:45)
[2017-04-07] MEDS: METOPROLOL SUCCINATE XL 100 MG TABLET PO SCH (09:45)
[2017-04-07] MEDS: ASPIRIN EC 81 MG TABLET PO SCH (09:45)
[2017-04-07] MEDS: POTASSIUM CHLORIDE 20 MEQ TABLET PO SCH ×2 (09:45→20:23)
[2017-04-07] MEDS: INSULIN REGULAR 100 UNIT/ML SUBCUT SCH ×4 (09:45→19:59)
[2017-04-07] MEDS: cefTRIAXone 1,000 MG in SODIUM CHLORIDE 0.9% 100 ML IV SCH (09:45)
[2017-04-07] MEDS: APIXABAN 2.5 MG TABLET PO SCH ×2 (09:45→20:23)
[2017-04-07] MEDS: ISOSORBIDE MONONITRATE 30 MG TABLET PO SCH (09:45)
[2017-04-07] MEDS: ASCORBIC ACID 500 MG TABLET PO SCH ×2 (09:55→20:23)
[2017-04-07] MEDS ORDERED: ALBUTEROL/IPRATROPIUM 3 ML NEB RESP TX PRN (13:30)
--- NOTE | 2017-04-07 13:36 | Hospitalist Progress Note ---
Assessment and Plan (1) Hypertension Status: Chronic Assessment and plan: Controlled Current Visit: Yes Qualifiers: Hypertension type: essential hypertension Qualified Code(s): I10 - Essential (primary) hypertension (2) Insulin dependent diabetes mellitus Status: Chronic Current Visit: Yes (3) Shortness of breath Status: Acute Assessment and plan: No evidence of PE or DVT CXR with improvement Mucinex Duonebs prn Current Visit: Yes (4) Pulmonary hypertension Status: Chronic Current Visit: Yes (5) Tachycardia Status: Acute Assessment and plan: Cardiology assisting Current Visit: Yes (6) Acute kidney injury Status: Resolved Assessment and plan: In our system, creatinine has ranged from 1.5 to 2.8 Creatinine down slightly down UA with moderate leukocytes, 15 wbc. Continue rocephin for now Nephrology managing Current Visit: Yes Hospitalist: Subjective Interval history: No acute events overnight. Patient's breathing is much better. Patient appears to be quite weak, believe that she could benefit with swing bed placement. Discussed this with patient, her and her daughter. Her daughter was very adamant that her mother would never go to a fpc. I attempted to explain what swing bed actually is to daughter, she remains adamantly against it. Social work met with the same resistance this afternoon. Will see how the patient does with physical therapy. The patient and her are both able to make decisions independently of daughter. Exam - Constitutional Vitals: Period Temp Pulse Resp BP Sys/Avina Pulse Ox Last 24 Hr 97.4 F-98.9 F 60-110 18-20 126-139/67-84 91-96 General appearance: over weight - Head Head exam: Present: normocephalic, atraumatic - Eye Eye exam: Present: EOMI Pupils: Present: POOJA - ENT ENT exam: Present: normal exam - Neck Neck exam: Present: normal inspection - Respiratory Respiratory exam: Present: clear to auscultation bilaterally. Absent: rhonchi, wheezes - Cardiovascular Cardiovascular exam: Present: regular rate and rhythm - GI/Abdominal GI/Abdominal exam: Present: normal bowel sounds, soft. Absent: tenderness, rebound - Extremities Exam Extremities exam: Present: normal inspection - Back Exam Back exam: Present: normal inspection - Neurological Exam Neurological exam: Present: alert, oriented X3 - Psychiatric Psychiatric exam: Present: normal affect, normal mood - Skin Skin exam: Present: warm, intact Results - Labs CBC & BMP: 04/07/17 04:31 04/07/17 04:31
--- NOTE | 2017-04-07 14:12 | Nephrology Progress Note ---
Nephrology - PN: Subj Interval history: 04/05/2017. The patient is resting comfortably. Serum creatinine is noted be 3.5. Started IV fluids on yesterday. We will continue with IV fluids at this time. She mentions that her breathing feels fine. BMP in a.m. 04/06/2017. The patient is resting comfortably. Serum creatinine is noted to be down to 3.3. 04/07/2017. The patient is resting comfortably. She states her breathing has improved. Follow-up chest x-ray on yesterday showed improved CHF. Serum creatinine also is improved with creatinine of 2.9. Exam (PN)-Nephrology - Vital Signs Vital signs: Period Temp Pulse Resp BP Sys/Avina Pulse Ox Last 24 Hr 97.4 F-98.9 F 60-110 18-20 126-139/67-84 91-96 - General Appearance General appearance: well-developed, well-nourished EENT: ATNC Neck: supple Respiratory: clear Cardiology: no edema, regular rate, regular rhythm Gastrointestinal: normoactive bowel sounds, no tenderness Neurologic: alert and oriented x3, CN 3-12 intact Musculoskeletal: no clubbing Psychiatric: mood/affect appropriate, cooperative - Lab 04/07/17 04:31 04/07/17 04:31 Most recent lab results Calcium 8.7 MG/DL (8.5-10.1) 04/07/17 04:31 Magnesium 2.8 MG/DL (1.8-2.4) H 04/07/17 04:31 Assessment and Plan (1) CHF exacerbation Status: Acute Current Visit: Yes (2) Shortness of breath Status: Acute Assessment and plan: Now with oxygen therapy. Current Visit: Yes (3) Urinary tract infection Status: Acute Assessment and plan: Receiving antibiotics. Current Visit: Yes (4) Chronic kidney disease Status: Chronic Assessment and plan: Renal ultrasound shows evidence of chronic kidney disease. Renal function is stable. Current Visit: Yes Qualifiers: Chronic kidney disease stage: stage 3 (moderate) Qualified Code(s): N18.3 - Chronic kidney disease, stage 3 (moderate) (5) Hypertension Status: Chronic Current Visit: Yes Qualifiers: Hypertension type: essential hypertension Qualified Code(s): I10 - Essential (primary) hypertension (6) Insulin dependent diabetes mellitus Status: Chronic Current Visit: Yes (7) Pulmonary hypertension Status: Chronic Current Visit: Yes (8) Sleep apnea Status: Chronic Current Visit: Yes
[2017-04-08 05:05] LABS: Calcium 8.4 MG/DL (8.5-10.1); Magnesium 2.9 MG/DL (1.8-2.4); Osmolality,Calculated 285.7 MOS/KG (273-304)
[2017-04-08] MEDS: INSULIN REGULAR 100 UNIT/ML SUBCUT SCH ×4 (07:33→21:22)
[2017-04-08] MEDS: INSULIN NPH 100 UNIT/ML SUBCUT SCH (08:17)
--- NOTE | 2017-04-08 09:00 | EKG Report ---
Stationary ECG Study [facility] Test Date: 04/07/2017 5:53:27 PM Pat Name: JULIET QUIROZ Department: Room: 291 Gender: F Resident Services Coordinator: : [id number] Requested by: Jonathan Raines Order Number: [id number] Reading MD: VANIA GOODRICH Intervals [place] Rate: 51 P: 260 [place]: 285 QRS: -42 QRSD: 165 T: 241 QT: 470 QTc: 446 Interpretive Statements JUNCTIONAL RHYTHM WITH PACS ABNORMAL LEFT AXIS DEVIATION RIGHT BUNDLE BRANCH BLOCK T WAVE ABNORMALITY Electronically Signed On 04-08-17 13:52:45 CDT by VANIA GOODRICH [email or web address]
[2017-04-08] MEDS: APIXABAN 2.5 MG TABLET PO SCH ×2 (09:13→20:27)
[2017-04-08] MEDS: ASPIRIN EC 81 MG TABLET PO SCH (09:13)
[2017-04-08] MEDS: METOPROLOL SUCCINATE XL 100 MG TABLET PO SCH (09:14)
[2017-04-08] MEDS: ASCORBIC ACID 500 MG TABLET PO SCH ×2 (09:14→20:27)
[2017-04-08] MEDS: POTASSIUM CHLORIDE 20 MEQ TABLET PO SCH ×2 (09:14→20:27)
[2017-04-08] MEDS: DILTIAZEM CD 240 MG CAPSULE PO SCH (09:15)
[2017-04-08] MEDS: ISOSORBIDE MONONITRATE 30 MG TABLET PO SCH (09:15)
--- NOTE | 2017-04-08 11:09 | Nephrology Progress Note ---
Nephrology - PN: Subj Interval history: She currently denies shortness of breath. No GI symptoms Exam (PN)-Nephrology - Vital Signs Vital signs: Period Temp Pulse Resp BP Sys/Avina Pulse Ox Last 24 Hr 96.8 F-98.8 F 40-103 16-24 116-155/61-84 92-99 Exam: Gen.: Alert and oriented x3. ENT: Pupils equal round reactive to light. EOMs intact. Mucous membranes moist. Neck: Supple. No JVD or bruit. Cardiovascular: Regular rate and rhythm. No murmur rub or gallop Lungs: Clear Abdomen: Soft. Nontender. Positive bowel sounds. No organomegaly Extremities: Trace edema - Lab 04/07/17 04:31 04/08/17 03:44 Most recent lab results Calcium 8.4 MG/DL (8.5-10.1) L 04/08/17 03:44 Magnesium 2.9 MG/DL (1.8-2.4) H 04/08/17 03:44 Assessment and Plan (1) Tachycardia Status: Acute Current Visit: Yes (2) Chronic kidney disease Status: Chronic Assessment and plan: 87-year-old woman with: * CRF stage III. Creatinine slightly higher than yesterday * Pulmonary hypertension. Shortness of breath has improved * Diabetes mellitus * Hypertension * Atrial fibrillation Current Visit: Yes Qualifiers: Chronic kidney disease stage: stage 3 (moderate) Qualified Code(s): N18.3 - Chronic kidney disease, stage 3 (moderate) (3) Hypertension Status: Chronic Current Visit: Yes Qualifiers: Hypertension type: essential hypertension Qualified Code(s): I10 - Essential (primary) hypertension (4) Insulin dependent diabetes mellitus Status: Chronic Current Visit: Yes (5) Pulmonary hypertension Status: Chronic Current Visit: Yes
[2017-04-08] MEDS: cefTRIAXone 1,000 MG in SODIUM CHLORIDE 0.9% 100 ML IV SCH (12:21)
--- NOTE | 2017-04-08 12:48 | Hospitalist Progress Note ---
Assessment and Plan (1) Hypertension Status: Chronic Assessment and plan: Controlled Current Visit: Yes Qualifiers: Hypertension type: essential hypertension Qualified Code(s): I10 - Essential (primary) hypertension (2) Insulin dependent diabetes mellitus Status: Chronic Current Visit: Yes (3) Shortness of breath Status: Acute Assessment and plan: No evidence of PE or DVT CXR with improvement Mucinex Duonebs prn Current Visit: Yes (4) Pulmonary hypertension Status: Chronic Current Visit: Yes (5) Tachycardia Status: Acute Assessment and plan: Cardiology assisting Patient with brief bradycarida yesterday Metoprolol decreased, if continues to recur will re-consult cardiology Current Visit: Yes (6) Acute kidney injury Status: Resolved Assessment and plan: In our system, creatinine has ranged from 1.5 to 2.8 Creatinine had been trending down, until today, up some today UA with moderate leukocytes, 15 wbc. Completed 3 days of Rocephin, urine culture with no growth Nephrology managing Current Visit: Yes Hospitalist: Subjective Interval history: No acute events overnight. Patient with brief episode of bradycardia yesterday evening, metoprolol succinate changed to Daily. Patient was asymptomatic. Exam - Constitutional Vitals: Period Temp Pulse Resp BP Sys/Avina Pulse Ox Last 24 Hr 96.8 F-98.8 F 40-72 16-24 116-155/61-78 92-99 General appearance: over weight - Head Head exam: Present: normocephalic, atraumatic - Eye Eye exam: Present: EOMI Pupils: Present: POOJA - ENT ENT exam: Present: normal exam - Neck Neck exam: Present: normal inspection - Respiratory Respiratory exam: Present: clear to auscultation bilaterally. Absent: rhonchi, wheezes - Cardiovascular Cardiovascular exam: Present: regular rate and rhythm - GI/Abdominal GI/Abdominal exam: Present: normal bowel sounds, soft. Absent: tenderness, rebound - Extremities Exam Extremities exam: Present: normal inspection - Back Exam Back exam: Present: normal inspection - Neurological Exam Neurological exam: Present: alert, oriented X3 - Psychiatric Psychiatric exam: Present: normal affect, normal mood - Skin Skin exam: Present: warm, intact Results - Labs CBC & BMP: 04/07/17 04:31 04/08/17 03:44
[2017-04-09 06:32] LABS: Basophils % 0.2 % (0.0-0.8); Eosinophils # 0.1 10*3/uL (0.0-0.87); Eosinophils % 1.6 % (0.00-10.9); Hematocrit 32.3 VOL% (35.7-47.0); Hemoglobin 10.1 GM/DL (12.0-16.0); Immature Granulocytes % 0.6 %; Immature Granulocytes Absolute 0.05 #; Lymphocytes # 1.1 10*3/uL (1.4-4.0); Lymphocytes % 12.9 % (21.3-54.2); Mean Corpuscular HGB Conc 31.3 GM/DL (32-36); Mean Corpuscular Hemoglobin 26 PG (27-34); Mean Corpuscular Volume 84.1 FL (87-102); Mean Platelet Volume 10.9 FL (9.6-12.0); Monocytes # 1.8 10*3/uL (0.11-0.8); NRBC # 0.02 10*3/uL; Neutrophils # 5.1 10*3/uL (1.4-7.4); Neutrophils % 62.7 % (38.7-73.9); Platelet Count 298 T/CUMM (130-400); Red Blood Count 3.84 MC/CUMM (3.8-5.5); Red Cell Distribution Width 19.2 % (9.3-17.3); White Blood Count 8.1 T/CUMM (4-12)
[2017-04-09 06:58] LABS: Calcium 8.7 MG/DL (8.5-10.1); Osmolality,Calculated 286.7 MOS/KG (273-304); Potassium 5.2 MMOL/L (3.5-5.1)
[2017-04-09 07:25] LABS: Elliptocytes 1+; Eosinophils 2 % (0-10); Hypochromasia 2+; Lymphocytes 14 % (20-55); Macrocytosis 1+; Platelet Estimate Adequate; Segmented Neutrophils 65 % (50-85); Target Cells Slight; Total Cells Counted 100
[2017-04-09] MEDS: APIXABAN 2.5 MG TABLET PO SCH ×2 (09:47→21:29)
[2017-04-09] MEDS: ISOSORBIDE MONONITRATE 30 MG TABLET PO SCH (09:47)
[2017-04-09] MEDS: ASPIRIN EC 81 MG TABLET PO SCH (09:47)
[2017-04-09] MEDS: ASCORBIC ACID 500 MG TABLET PO SCH ×2 (09:48→21:29)
[2017-04-09] MEDS: DILTIAZEM CD 240 MG CAPSULE PO SCH (09:48)
[2017-04-09] MEDS: METOPROLOL SUCCINATE XL 100 MG TABLET PO SCH (09:48)
[2017-04-09] MEDS: INSULIN NPH 100 UNIT/ML SUBCUT SCH (09:49)
[2017-04-09] MEDS: INSULIN REGULAR 100 UNIT/ML SUBCUT SCH ×4 (09:49→20:49)
[2017-04-09] MEDS: POTASSIUM CHLORIDE 20 MEQ TABLET PO SCH ×2 (09:50→21:27)
[2017-04-09] MEDS: POLYETHYLENE GLYCOL POWDER 17 GM PACK PO SCH (14:32)
--- NOTE | 2017-04-09 14:35 | Hospitalist Progress Note ---
Assessment and Plan (1) Hypertension Status: Chronic Assessment and plan: Controlled Current Visit: Yes Qualifiers: Hypertension type: essential hypertension Qualified Code(s): I10 - Essential (primary) hypertension (2) Insulin dependent diabetes mellitus Status: Chronic Current Visit: Yes (3) Shortness of breath Status: Acute Assessment and plan: No evidence of PE or DVT CXR with improvement, will repeat in am Mucinex Duonebs prn Patient is doing better, but still has quite a bit of sob when walking with PT Will consult PT in the am just to make sure that there is nothing else going on Current Visit: Yes (4) Pulmonary hypertension Status: Chronic Current Visit: Yes (5) Tachycardia Status: Acute Assessment and plan: Cardiology has signed off Current Visit: Yes (6) Acute kidney injury Status: Resolved Assessment and plan: In our system, creatinine has ranged from 1.5 to 2.8 Creatinine stable today UA with moderate leukocytes, 15 wbc. Completed 3 days of Rocephin, urine culture with no growth Nephrology managing Current Visit: Yes Hospitalist: Subjective Interval history: No acute events overnight. Patient reports that her sob is much better, but still gets quite sob when walking with physical therapy. Exam - Constitutional Vitals: Period Temp Pulse Resp BP Sys/Avina Pulse Ox Last 24 Hr 96.9 F-98.9 F 62-72 18-24 123-139/61-73 92-98 General appearance: over weight - Head Head exam: Present: normocephalic, atraumatic - Eye Eye exam: Present: EOMI Pupils: Present: POOJA - ENT ENT exam: Present: normal exam - Neck Neck exam: Present: normal inspection - Respiratory Respiratory exam: Present: clear to auscultation bilaterally, wheezes. Absent: rhonchi - Cardiovascular Cardiovascular exam: Present: regular rate and rhythm - GI/Abdominal GI/Abdominal exam: Present: normal bowel sounds, soft. Absent: tenderness, rebound - Extremities Exam Extremities exam: Present: normal inspection - Back Exam Back exam: Present: normal inspection - Neurological Exam Neurological exam: Present: alert, oriented X3 - Psychiatric Psychiatric exam: Present: normal affect, normal mood - Skin Skin exam: Present: warm, intact Results - Labs CBC & BMP: 04/09/17 05:56 04/09/17 05:56
--- NOTE | 2017-04-09 14:44 | Nephrology Progress Note ---
Nephrology - PN: Subj Interval history: She denies shortness of breath at rest. No new symptoms Exam (PN)-Nephrology - Vital Signs Vital signs: Period Temp Pulse Resp BP Sys/Avina Pulse Ox Last 24 Hr 96.9 F-98.9 F 62-72 18-24 123-139/61-73 92-98 Exam: Gen.: Alert and oriented x3. ENT: Pupils equal round reactive to light. EOMs intact. Mucous membranes moist. Neck: Supple. No JVD or bruit. Cardiovascular: Regular rate and rhythm. No murmur rub or gallop Lungs: Clear Abdomen: Soft. Nontender. Positive bowel sounds. No organomegaly Extremities: Trace edema - Lab 04/09/17 05:56 04/09/17 05:56 Most recent lab results Calcium 8.7 MG/DL (8.5-10.1) 04/09/17 05:56 Magnesium 3.0 MG/DL (1.8-2.4) H 04/09/17 05:56 Assessment and Plan (1) Tachycardia Status: Acute Current Visit: Yes (2) Chronic kidney disease Status: Chronic Assessment and plan: 87-year-old woman with: * CRF stage III. Creatinine unchanged at 3.2 * Pulmonary hypertension. Shortness of breath has improved * Diabetes mellitus * Hypertension * Atrial fibrillation Current Visit: Yes Qualifiers: Chronic kidney disease stage: stage 3 (moderate) Qualified Code(s): N18.3 - Chronic kidney disease, stage 3 (moderate) (3) Hypertension Status: Chronic Current Visit: Yes Qualifiers: Hypertension type: essential hypertension Qualified Code(s): I10 - Essential (primary) hypertension (4) Insulin dependent diabetes mellitus Status: Chronic Current Visit: Yes (5) Pulmonary hypertension Status: Chronic Current Visit: Yes
[2017-04-10 05:43] LABS: Calcium 8.4 MG/DL (8.5-10.1); Magnesium 3.1 MG/DL (1.8-2.4); Osmolality,Calculated 287.7 MOS/KG (273-304)
[2017-04-10 05:56] LABS: Potassium 6.2 MMOL/L (3.5-5.1)
[2017-04-10] MEDS ORDERED: SODIUM POLYSTYRENE SULFATE 15 GM/60 ML BOTTLE PO ONE (06:23)
[2017-04-10] MEDS: METOPROLOL SUCCINATE XL 100 MG TABLET PO SCH (08:49)
[2017-04-10] MEDS: APIXABAN 2.5 MG TABLET PO SCH ×2 (08:49→20:49)
[2017-04-10] MEDS: ISOSORBIDE MONONITRATE 30 MG TABLET PO SCH (08:49)
[2017-04-10] MEDS: ASCORBIC ACID 500 MG TABLET PO SCH ×2 (08:49→20:49)
[2017-04-10] MEDS: DILTIAZEM CD 240 MG CAPSULE PO SCH (08:49)
[2017-04-10] MEDS: INSULIN REGULAR 100 UNIT/ML SUBCUT SCH ×4 (08:50→20:49)
[2017-04-10] MEDS: INSULIN NPH 100 UNIT/ML SUBCUT SCH (08:50)
[2017-04-10] MEDS: POLYETHYLENE GLYCOL POWDER 17 GM PACK PO SCH (08:51)
[2017-04-10] MEDS: ASPIRIN EC 81 MG TABLET PO SCH (08:51)
[2017-04-10] MEDS: POTASSIUM CHLORIDE 20 MEQ TABLET PO SCH (08:58)
--- NOTE | 2017-04-10 09:55 | EKG Report ---
Please refer to the EKG image. Final interpretation is pending.
--- NOTE | 2017-04-10 10:10 | XRay Report ---
Portable chest April 10, 2017 Indication: Difficulty breathing Comparison images from April 06, 2017 at 0611 hours Findings: Central pulmonary edema pattern is relatively unchanged. Heart size remains enlarged. Bibasilar atelectasis and trace effusions likely stable. Postoperative changes again noted within the left axilla. Impression: No change in the central pulmonary edema pattern, bibasilar atelectasis or trace effusions PROCEDURE INTERPRETED AT [facility] DEPARTMENT OF RADIOLOGY Final Report Signed by: Marcelino Espana
--- NOTE | 2017-04-10 14:12 | Hospitalist Progress Note ---
Assessment and Plan (1) Hypertension Status: Chronic Assessment and plan: Controlled Current Visit: Yes Qualifiers: Hypertension type: essential hypertension Qualified Code(s): I10 - Essential (primary) hypertension (2) Insulin dependent diabetes mellitus Status: Chronic Current Visit: Yes (3) Shortness of breath Status: Acute Assessment and plan: No evidence of PE or DVT CXR with improvement, will repeat in am Mucinex Duonebs prn Patient is doing better, but still has quite a bit of sob when walking with PT Consulting pulmonary to make sure that there is nothing else going on Current Visit: Yes (4) Pulmonary hypertension Status: Chronic Current Visit: Yes (5) Tachycardia Status: Acute Assessment and plan: Cardiology has signed off Current Visit: Yes (6) Acute kidney injury Status: Resolved Assessment and plan: In our system, creatinine has ranged from 1.5 to 2.8 Creatinine stable today UA with moderate leukocytes, 15 wbc. Completed 3 days of Rocephin, urine culture with no growth Nephrology managing Current Visit: Yes Hospitalist: Subjective Interval history: No acute events overnight. Patient seen sitting up in chair. She reports that she feels better. Patient would benefit from swing bed, her daughter is very against it. The patient states that she will think about it. Exam - Constitutional Vitals: Period Temp Pulse Resp BP Sys/Avina Pulse Ox Last 24 Hr 97.4 F-99.0 F 41-73 18-28 120-185/61-104 94-100 General appearance: over weight - Head Head exam: Present: normocephalic, atraumatic - Eye Eye exam: Present: EOMI Pupils: Present: POOJA - ENT ENT exam: Present: normal exam - Neck Neck exam: Present: normal inspection - Respiratory Respiratory exam: Present: wheezes. Absent: rhonchi - Cardiovascular Cardiovascular exam: Present: regular rate and rhythm - GI/Abdominal GI/Abdominal exam: Present: normal bowel sounds, soft. Absent: tenderness, rebound - Extremities Exam Extremities exam: Present: normal inspection - Back Exam Back exam: Present: normal inspection - Neurological Exam Neurological exam: Present: alert, oriented X3 - Psychiatric Psychiatric exam: Present: normal affect, normal mood - Skin Skin exam: Present: warm, intact Results - Labs CBC & BMP: 04/09/17 05:56 04/10/17 12:58
[2017-04-10] MEDS ORDERED: FUROSEMIDE 40 MG/4 ML VIAL IV ONE (14:46)
--- NOTE | 2017-04-10 15:13 | Pulmonology Consult Note ---
History of Present Illness Chief complaint: Dyspnea on exertion chronic renal failure ai, MR History of present illness: Ms. Churchill is a 87 year old black female who was seen with 2 family members. The patient was not any help with the history. Family members were marginal. I have been asked to see this patient because of dyspnea on exertion. When I asked her if she had shortness of breath, she said "maybe I do may be I do not" I asked her about edema. She has teds hose on. There is edema of her legs she has a great deal of sacral edema. She told me she has no swelling. The remainder of her review of systems was negative and noncontributory per Allergies. None Hospital medicines. See below Past history. Obesity. Renal failure. Congestive heart failure. Insulin- dependent diabetes mellitus. High blood pressure. Tachycardia. Obstructive sleep apnea. She is seen by Dr. Janessa Shine in the past for obstructive sleep. Cholecystectomy. Hysterectomy. Breast surgery. Echocardiogram appear ejection fraction 40-45%. Mild aortic insufficiency and mild mitral regurgitation. Left ventricular hypertrophy. Diastolic dysfunction. Pulmonary artery pressure 77 mmHg. Social history. Patient's followed by Dr. Kris Anthony. She never smoked. She is . Family history. Positive for diabetes and heart disease During this admission have been no studies positive for deep venous thrombophlebitis or pulmonary emboli. Chest x-ray. 04/10/2017. My impression. Cardiomegaly. Enlarged pulmonary arteries. Fluid in both major fissures. Increase in interstitial markings especially at the bases in the perihilar area. In both bases there is a background of alveolar filling. This is a portable PA film. There are been several x-rays during this admission and all of them are about the same but at times a little more decompensated than today's congestive heart Lab. Creatinine is 3.30 with a BUN of 44. Sodium potassium and chloride are normal. H&H 10.1/32.2 with decreased indices and elevated red blood cell distribution with. White blood cell count is 8100 with 62.7 segs 12.9 lymphs 22 % monocytes. Thyroid function tests are normal. Glucoses are under good control. Microbiology. No positive test. Physical exam. Vital signs. See below. Afebrile throughout her hospitalization. Normotensive. Respiratory rate at rest is 20-22/min Psychiatric. Cooperates. Appears to have dementia. Face. Symmetrical. Tongue is large without edema. No edema of the lips. Neck. Short and thick with no meningismus. I feel no masses. Venous. Jugular venous distention and a positive hepatojugular reflux. Veins of the arms appear to be normal. There is chronic venous stasis over both lower extremities. Arterial. Carotids are faintly palpable and mainly traversed behind the sternocleidomastoid muscles bilaterally. Radial pulses palpable bilaterally. Lower extremity pulses are not palpable. Chest. Symmetrical. Decreased inspiratory excursion secondary to body habitus. The patient has truncal obesity. I can hear no wheezes and no stridor. Heart sounds are distant not well heard. Breast deferred. Abdomen. Obese. Nontender Feet and calves show very little edema. The patient has teds hose on. Patient has a good bit of edema in the thighs and the sacral areas bilaterally. Neurologic. Cranial nerves appear to be intact and patient moves all 4 extremities. Sensory exam was not done in gait was not tested. Lymphatics. No submandibular cervical or supraclavicular adenopathy. The remainder of the exam was negative Impression. 1. Congestive heart failure. 2. Decreased ejection fraction. Mild aortic insufficiency and mild mitral regurgitation #3 obstructive sleep apnea. 4. Pulmonary arterial hypertension/pulmonary venous hypertension. This could be either or both. Poor cardiac output and valvular disease could cause pulmonary venous hypertension. Obstructive sleep apnea could certainly play a part pulmonary artery hypertension. Usually not as high as this patient is said to have. There is been no evidence of pulmonary emboli as a cause. 5. Clinically the patient has right heart failure with distended jugular veins , positive hepatojugular reflux and peripheral edema. Pulmonary hypertension from what ever caused this most likely the etiology 6. Renal failure 7. Insulin-dependent diabetes mellitus 8. High blood pressure 9. See past history Plan. 1. We will give 80 mg of Lasix IV push now. Patient's had some kidney problems that could have been exacerbated by diuretics so I will ask Dr. Villalpando to review and advise us on how much diuresis the patient can tolerate. If we could resolve her congestive heart failure, this most likely would help with her pulmonary hypertension and right heart failure. At home the patient was taken Norvasc 10 mg daily. Norvasc usually helps with pulmonary artery hypertension, but is unlikely to help with pulmonary venous hypertension unless it improves cardiac function and forward flow 2. We will get follow-up chest x-ray #3 we will get ABGs. Home Medications Medication Instructions Recorded Confirmed Type Amlodipine Besylate [Amlodipine 10 mg PO DAILY 04/01/17 04/01/17 History Besylate] Aspirin EC Tab 81 mg PO DAILY 04/01/17 04/01/17 History Furosemide [Furosemide] 40 mg PO DAILY 04/01/17 04/01/17 History Insulin NPH Human Isophane 10 units SUBCUT QAM 04/01/17 04/01/17 History [Novolin N] Isosorbide Mononitrate [Isosorbide 30 mg PO DAILY 04/01/17 04/01/17 History Mononitrate ER] Losartan Potassium [Losartan 50 mg PO DAILY 04/01/17 04/01/17 History Potassium] Metoprolol Succinate Xl [Toprol Xl] 100 mg PO BID 04/01/17 04/01/17 History Potassium Chloride 20 meq PO BID 04/01/17 04/01/17 History Allergies Allergy/AdvReac Type Severity Reaction Status Date / Time No Known Allergies Allergy Unverified 04/01/17 09:15 Exam (Pulmonay) H&P - Constitutional Vitals: Period Temp Pulse Resp BP Sys/Avina Pulse Ox Last 24 Hr 97.4 F-99.0 F 41-73 18-28 120-185/61-104 94-100 Medical,Surgical,& Family Hx - Medical History Cardio: History of: Cardiac Dysrhythmia, CHF, Hypertension, [place] Endocrine: History of: Diabetes Mellitus (IDDM), Diabetes Mellitus (NIDDM) Respiratory: History of: Obstructive Sleep Apnea, Pulmonary Hypertension, Respiratory Problems (wears oxygen at 2L) Reproductive: History of: Breast Cancer - Surgical History Abdominal Surgeries: Surgical HX of: Cholecystectomy Reproductive Surgeries: Surgical HX of;: Breast Surgery, Hysterectomy - Family History Family History: Reports;: Family Diabetes, Family Heart Disease - Social History Smoking Status: Never smoker Frequency of Alcohol Use: None Type of Drug Use: None Results - Labs CBC & BMP: 04/09/17 05:56 04/10/17 12:58
--- NOTE | 2017-04-10 15:49 | Nephrology Progress Note ---
Nephrology - PN: Subj Interval history: She reports VILLASENOR but no shortness of breath at rest. No GI symptoms Exam (PN)-Nephrology - Vital Signs Vital signs: Period Temp Pulse Resp BP Sys/Avina Pulse Ox Last 24 Hr 97.4 F-99.0 F 41-73 18-28 120-185/61-104 94-100 Exam: Gen.: Alert and oriented x3. ENT: Pupils equal round reactive to light. EOMs intact. Mucous membranes moist. Neck: Supple. No JVD or bruit. Cardiovascular: Regular rate and rhythm. No murmur rub or gallop Lungs: Clear Abdomen: Soft. Nontender. Positive bowel sounds. No organomegaly Extremities: Trace edema - Lab 04/09/17 05:56 04/10/17 12:58 Most recent lab results Calcium 8.4 MG/DL (8.5-10.1) L 04/10/17 05:04 Magnesium 3.1 MG/DL (1.8-2.4) H 04/10/17 05:04 Assessment and Plan (1) Tachycardia Status: Acute Current Visit: Yes (2) Chronic kidney disease Status: Chronic Assessment and plan: 87-year-old woman with: * CRF stage III. Creatinine slightly higher at 3.3. Monitor renal function with higher diuretic dose * Pulmonary hypertension. Shortness of breath has improved * Diabetes mellitus * Hypertension * Atrial fibrillation Current Visit: Yes Qualifiers: Chronic kidney disease stage: stage 3 (moderate) Qualified Code(s): N18.3 - Chronic kidney disease, stage 3 (moderate) (3) Hypertension Status: Chronic Current Visit: Yes Qualifiers: Hypertension type: essential hypertension Qualified Code(s): I10 - Essential (primary) hypertension (4) Insulin dependent diabetes mellitus Status: Chronic Current Visit: Yes (5) Pulmonary hypertension Status: Chronic Current Visit: Yes
[2017-04-11 03:50] LABS: ABG Base Excess -1.9 MMOL/L (-2.5-2.5); ABG HCO3 22.7 MMOL/L (20-26); ABG Oxygen Saturation 91.6 % (95-100); ABG PCO2 45.5 MM HG (35-48); ABG PH 7.332 (7.35-7.45); ABG PO2 65.9 MM HG (80-95); ABG TCO2 22.2 MMOL/L (23-27); Allen Test Positive; Pt O2 Delivery Device CPAP
[2017-04-11 06:19] LABS: Calcium 8.4 MG/DL (8.5-10.1); Magnesium 2.8 MG/DL (1.8-2.4); Osmolality,Calculated 290.3 MOS/KG (273-304); Potassium 3.9 MMOL/L (3.5-5.1)
[2017-04-11 06:20] LABS: Calcium 8.3 MG/DL (8.5-10.1); Osmolality,Calculated 290.3 MOS/KG (273-304); Potassium 3.9 MMOL/L (3.5-5.1)
--- NOTE | 2017-04-11 08:04 | XRay Report ---
Exam: XR chest 1V portable Date: 04/11/2017 4:00 AM Indication: Shortness of breath Comparison: 04/10/2017 Technical: AP portable Findings: Cardiomegaly is present. Shunt vascularity is present with low volume effusions. ASVD is present. Previous left axillary dissection. Degenerative change present thoracic spine. Mediastinum is intact Impression: 1. Cardiomegaly 2. Little change has occurred with the underlying interstitial alveolar infiltrates and effusions bilaterally 3. Previous left axillary dissection PROCEDURE INTERPRETED AT [facility] DEPARTMENT OF RADIOLOGY Final Report Signed by: Dr. Rivas Aleman
[2017-04-11] MEDS: INSULIN REGULAR 100 UNIT/ML SUBCUT SCH ×4 (08:18→21:50)
[2017-04-11] MEDS: APIXABAN 2.5 MG TABLET PO SCH ×2 (08:54→21:49)
[2017-04-11] MEDS: ASCORBIC ACID 500 MG TABLET PO SCH ×2 (08:55→21:49)
[2017-04-11] MEDS: DILTIAZEM CD 240 MG CAPSULE PO SCH (08:56)
[2017-04-11] MEDS: ASPIRIN EC 81 MG TABLET PO SCH (08:56)
[2017-04-11] MEDS: ISOSORBIDE MONONITRATE 30 MG TABLET PO SCH (08:57)
[2017-04-11] MEDS: METOPROLOL SUCCINATE XL 100 MG TABLET PO SCH (08:58)
[2017-04-11] MEDS: INSULIN NPH 100 UNIT/ML SUBCUT SCH (08:58)
[2017-04-11] MEDS: POLYETHYLENE GLYCOL POWDER 17 GM PACK PO SCH (09:02)
[2017-04-11] MEDS: ALBUTEROL/IPRATROPIUM 3 ML NEB RESP TX SCH ×3 (11:10→20:24)
[2017-04-11] MEDS ORDERED: LEVOFLOXACIN INJ 500 MG in PREMIX 1 EACH IV SCH (13:00)
--- NOTE | 2017-04-11 13:04 | Hospitalist Progress Note ---
Assessment and Plan (1) Chronic kidney disease Status: Chronic Assessment and plan: Impression: 1. Chronic kidney disease. This appears to be stable 2. Exertional dyspnea 3. Deconditioning Plan: Await physical therapy evaluation. Consider discharge in the next day or so. This note was completed using Vinny voice recognition software. There may be edge bander operator errors as a result. Current Visit: Yes Qualifiers: Chronic kidney disease stage: stage 3 (moderate) Qualified Code(s): N18.3 - Chronic kidney disease, stage 3 (moderate) Hospitalist: Subjective Interval history: Follow-up chronic kidney disease, exertional dyspnea, and deconditioning. The patient has been in the hospital for 10 days. She had a Santacruz catheter placed on admission, and now has blood in the urine. Performance status is poor. She has been able to sit up, but I cannot tell if she has been walking anywhere or not. When I discussed post discharge plans, the daughter in the room said that the family would prefer home with home health and PT. The patient's appetite is fair. She denies any new complaints Exam - Constitutional Vitals: Period Temp Pulse Resp BP Sys/Avina Pulse Ox Last 24 Hr 98.0 F-99.3 F 64-105 16-26 139-188/67-82 91-99 Vital signs are noted above. Heart is regular with skips. She has a few rales in the chest, but the lungs are mostly clear. She has a couple millimeters of pretibial edema. She is awake and alert. Results - Labs CBC & BMP: 04/09/17 05:56 04/11/17 05:17 Lab Results: I have reviewed the past 24 hour labs (Kidney function is stable)
--- NOTE | 2017-04-11 14:14 | Nephrology Progress Note ---
Nephrology - PN: Subj Interval history: 04/05/2017. The patient is resting comfortably. Serum creatinine is noted be 3.5. Started IV fluids on yesterday. We will continue with IV fluids at this time. She mentions that her breathing feels fine. BMP in a.m. 04/06/2017. The patient is resting comfortably. Serum creatinine is noted to be down to 3.3. 04/07/2017. The patient is resting comfortably. She states her breathing has improved. Follow-up chest x-ray on yesterday showed improved CHF. Serum creatinine also is improved with creatinine of 2.9. 04/11/2017. The patient is resting comfortably. Serum creatinine is the same at 3.1. Exam (PN)-Nephrology - Vital Signs Vital signs: Period Temp Pulse Resp BP Sys/Avina Pulse Ox Last 24 Hr 98.0 F-99.3 F 64-105 16-26 139-188/67-82 91-99 - General Appearance General appearance: well-developed, well-nourished, frail Neck: supple Respiratory: clear Cardiology: no edema, regular rate, regular rhythm Gastrointestinal: normoactive bowel sounds, no tenderness Integumentary: no rash Neurologic: alert and oriented x3 Musculoskeletal: no deformities Psychiatric: mood/affect appropriate, cooperative - Lab 04/09/17 05:56 04/11/17 05:17 Most recent lab results ABG pH 7.332 (7.35-7.45) L 04/11/17 03:51 ABG pCO2 45.5 MM HG (35-48) 04/11/17 03:51 ABG pO2 65.9 MM HG (80-95) L 04/11/17 03:51 ABG HCO3 22.7 MMOL/L (20-26) 04/11/17 03:51 ABG O2 Saturation 91.6 % (95-100) L 04/11/17 03:51 Calcium 8.3 MG/DL (8.5-10.1) L 04/11/17 05:17 Magnesium 2.8 MG/DL (1.8-2.4) H 04/11/17 05:17 Assessment and Plan (1) CHF exacerbation Status: Acute Current Visit: Yes (2) Shortness of breath Status: Acute Assessment and plan: Now with oxygen therapy. Current Visit: Yes (3) Urinary tract infection Status: Acute Assessment and plan: Repeat urinalysis. Continue levaquin. Current Visit: Yes (4) Chronic kidney disease Status: Chronic Assessment and plan: Renal ultrasound shows evidence of chronic kidney disease. Renal function is stable. Current Visit: Yes Qualifiers: Chronic kidney disease stage: stage 3 (moderate) Qualified Code(s): N18.3 - Chronic kidney disease, stage 3 (moderate) (5) Hypertension Status: Chronic Current Visit: Yes Qualifiers: Hypertension type: essential hypertension Qualified Code(s): I10 - Essential (primary) hypertension (6) Insulin dependent diabetes mellitus Status: Chronic Current Visit: Yes (7) Pulmonary hypertension Status: Chronic Current Visit: Yes (8) Sleep apnea Status: Chronic Current Visit: Yes
--- NOTE | 2017-04-11 14:26 | Pulmonology Progress Note ---
Pulmonary - PN: Subj Interval history: This 87-year-old black female. I saw in pulmonary consultation 04/10/2017. My impressions were 1. Congestive heart failure. 2. Decreased ejection fraction. Mild aortic insufficiency and mild mitral regurgitation #3 obstructive sleep apnea. 4. Pulmonary arterial hypertension/pulmonary venous hypertension. This could be either or both. Poor cardiac output and valvular disease could cause pulmonary venous hypertension. Obstructive sleep apnea could certainly play a part pulmonary artery hypertension. Usually not as high as this patient is said to have. There is been no evidence of pulmonary emboli as a cause. 5. Clinically the patient has right heart failure with distended jugular veins , positive hepatojugular reflux and peripheral edema. Pulmonary hypertension from what ever caused this most likely the etiology 6. Renal failure 7. Insulin-dependent diabetes mellitus 8. High blood pressure 9. See past history 04/11/2017. Patient was seen today along with the female family member. She complains of a cough. Will check her sputum for Gram stain culture and sensitivity. Her chest x-ray is essentially unchanged. She has pulmonary edema. I cannot absolutely rule out an infiltrate at the medial right base. On physical exam she still has right heart failure. ABGs on FiO2 of 32% show a pH of 7.33, PCO2 45.5, PO2 65.9 and a bicarb of 22.7. Electrolytes are normal. Yesterday I gave the patient 80 mg of Lasix and her creatinine dropped from 3.30-3.10 and a BUN dropped from 44-41. Nitrated peptide remains elevated at 972. I have begun Lasix today at 40 mg IV push every 12 hours and will probably want to increase it if it does not harm her kidneys. This lady could benefit a good bit from volume reduction. There are no positive cultures. Physical exam. Vital signs. See below. Afebrile Psychiatric. Probably oriented. Appears to be demented Face. Symmetrical. Big tongue. No edema. Neck. Short thick kyphotic Lymphatics. No submandibular cervical supraclavicular or epitrochlear adenopathy Chest. Slight congestion of the proximal trachea. I do not hear any wheezes or stridor. Heart. Impossible to auscultate secondary to patient's body habitus Abdomen. No tenderness in the right upper quadrant Extremities. Edema below the knees is well controlled with teds hose. Patient has edema in the sacrum and thighs lower abdomen. Neurologic. Cranial nerves are intact. Long track motor functions intact The rest exam is negative Plan. 04/10/2017 1. We will give 80 mg of Lasix IV push now. Patient's had some kidney problems that could have been exacerbated by diuretics so I will ask Dr. Villalpando to review and advise us on how much diuresis the patient can tolerate. If we could resolve her congestive heart failure, this most likely would help with her pulmonary hypertension and right heart failure. At home the patient was taken Norvasc 10 mg daily. Norvasc usually helps with pulmonary artery hypertension, but is unlikely to help with pulmonary venous hypertension unless it improves cardiac function and forward flow. 2. We will get follow-up chest x-ray #3 we will get ABGs. 04/11/2017. 1. See today's note above 2. Lasix 40 IV push twice daily. Hope to increase the dose 3. Follow-up chest x-ray 4. Daily BMP 5. Inhalation therapy 5. Continue Mucinex Exam (Progress Note) - Constitutional Vitals: Period Temp Pulse Resp BP Sys/Avina Pulse Ox Last 24 Hr 98.0 F-99.3 F 64-105 16-26 139-188/67-82 91-99 Results - Labs CBC & BMP: 04/09/17 05:56 04/11/17 05:17
--- NOTE | 2017-04-11 14:27 | Pulmonology Progress Note ---
Pulmonary - PN: Subj Interval history: Estevan Brooks, [facility], acting as scribe for Dr. Rivas Scales Ms. Churchill is an 87-year-old -[place] female who we saw in initial pulmonary consultation on 04/10/2017. At that time, our impressions were: 1. Congestive heart failure. 2. Decreased ejection fraction. Mild aortic insufficiency and mild mitral regurgitation 3. Obstructive sleep apnea. 4. Pulmonary arterial hypertension/pulmonary venous hypertension. This could be either or both. Poor cardiac output and valvular disease could cause pulmonary venous hypertension. Obstructive sleep apnea could certainly play a part pulmonary artery hypertension. Usually not as high as this patient is said to have. There is been no evidence of pulmonary emboli as a cause. 5. Clinically the patient has right heart failure with distended jugular veins , positive hepatojugular reflux and peripheral edema. Pulmonary hypertension from what ever caused this most likely the etiology 6. Renal failure 7. Insulin-dependent diabetes mellitus 8. High blood pressure 9. See past history 04/11/2017. Patient was seen today along with a female family member her nurse. The female family member that is present states the patient did not rest well through the night secondary to a dry hacking cough. She is on Mucinex 600 mg twice daily, but has not been receiving any inhalation therapy. We have started duo nebs 4 times daily and as needed. She has left and right heart failure. She is being diuresed. She also has chronic renal failure and is followed from nephrology standpoint by Dr. Caraballo. Creatinine today is 3.10. Chest x-ray is stable. BNP has improved to 972. Medications have been reviewed. Inhalation therapy has been started today. Labs been reviewed. Creatinine 3.10, BUN 41, electrolytes are normal; magnesium 2.8; BNP 972 ABGs this morning on an FiO2 32% show pH 7.332, PCO2 45.5, PO2 65.9, bicarb 22.7 , oxygen saturation 91.6% Exam (Progress Note) - Constitutional Vitals: Period Temp Pulse Resp BP Sys/Avina Pulse Ox Last 24 Hr 98.0 F-99.3 F 64-105 16-26 139-188/67-82 91-99 Exam: Chest is symmetrical with decreased respiratory excursion secondary to body habitus; wheeze free Heart sounds are distant Abdomen is obese, but nontender; bowel sounds are positive 4 Extremities edematous thighs and sacrum; note, Doppler venograms negative this admission Psychiatric oriented 3 Neurologic long-term motor function is intact Plan: Continue present therapy. Start duo nebs 4 times daily and as needed. It is noted that the patient's family is declining swing bed. See orders. Results - Labs CBC & BMP: 04/09/17 05:56 04/11/17 05:17
[2017-04-11] MEDS: guaiFENesin 200 MG/10 ML UDCUP PO PRN ×2 (14:45→21:49)
[2017-04-11 15:05] LABS: Apearance,Urine CLOUDY (Clear); Bilirubin,Urine Negative (Negative); Blood, Urine Large mg/dL (Negative); Glucose,Urine (UA) Negative (Negative); Ketones,Urine Negative (Negative); Mucus,Urine Few /LPF (Occasional); Nitrite,Urine Negative (Negative); Protein,Urine 100 MG/DL; RBC,Urine 5647 /HPF (0-4); Urine Color Red (Yellow); Urine Specific Gravity 1.009 (1.001-1.035); Urine Urobilinogen < 2.0 EU/DL (0.2-1.0); WBC,Urine 43 /HPF (0-6)
[2017-04-11] MEDS: FUROSEMIDE 40 MG/4 ML VIAL IV SCH (17:11)
[2017-04-12] MEDS: ALBUTEROL/IPRATROPIUM 3 ML NEB RESP TX SCH ×4 (00:56→19:44)
[2017-04-12 06:38] LABS: Calcium 8.3 MG/DL (8.5-10.1)
[2017-04-12 06:39] LABS: Magnesium 2.6 MG/DL (1.8-2.4); Osmolality,Calculated 289.1 MOS/KG (273-304); Potassium 3.5 MMOL/L (3.5-5.1)
--- NOTE | 2017-04-12 07:22 | XRay Report ---
Exam: XR chest 1V portable Date: 04/12/2017 4:00 AM Indication: Respiratory failure follow-up Comparison: 04/11/2017 Technical: AP Findings: Cardiomegaly is present. Surgical changes in the axillary region on the left. Low volume effusions are present bilaterally with underlying interstitial edema. ASVD is present. External cardiac leads oxygen tubing are present. No pneumothorax Impression: 1. Persistent cardiomegaly and bilateral effusions atelectatic change 2. No significant interval change PROCEDURE INTERPRETED AT [facility] DEPARTMENT OF RADIOLOGY Final Report Signed by: Dr. Rivas Aleman
[2017-04-12] MEDS: INSULIN REGULAR 100 UNIT/ML SUBCUT SCH ×4 (09:15→21:45)
[2017-04-12] MEDS: DILTIAZEM CD 240 MG CAPSULE PO SCH (09:32)
[2017-04-12] MEDS: POLYETHYLENE GLYCOL POWDER 17 GM PACK PO SCH (09:32)
[2017-04-12] MEDS: FUROSEMIDE 40 MG/4 ML VIAL IV SCH ×2 (09:33→16:35)
[2017-04-12] MEDS: INSULIN NPH 100 UNIT/ML SUBCUT SCH (09:33)
[2017-04-12] MEDS: METOPROLOL SUCCINATE XL 100 MG TABLET PO SCH (09:33)
[2017-04-12] MEDS: ASCORBIC ACID 500 MG TABLET PO SCH ×2 (09:33→21:46)
[2017-04-12] MEDS: ISOSORBIDE MONONITRATE 30 MG TABLET PO SCH (09:33)
[2017-04-12] MEDS: APIXABAN 2.5 MG TABLET PO SCH ×2 (09:33→21:46)
[2017-04-12] MEDS: ASPIRIN EC 81 MG TABLET PO SCH (09:33)
[2017-04-12] MEDS: guaiFENesin 200 MG/10 ML UDCUP PO PRN ×2 (09:36→21:46)
--- NOTE | 2017-04-12 11:29 | Pulmonology Progress Note ---
Pulmonary - PN: Subj Interval history: This 87-year-old black female. I saw in pulmonary consultation 04/10/2017. My impressions were 1. Congestive heart failure. 2. Decreased ejection fraction. Mild aortic insufficiency and mild mitral regurgitation #3 obstructive sleep apnea. 4. Pulmonary arterial hypertension/pulmonary venous hypertension. This could be either or both. Poor cardiac output and valvular disease could cause pulmonary venous hypertension. Obstructive sleep apnea could certainly play a part pulmonary artery hypertension. Usually not as high as this patient is said to have. There is been no evidence of pulmonary emboli as a cause. 5. Clinically the patient has right heart failure with distended jugular veins , positive hepatojugular reflux and peripheral edema. Pulmonary hypertension from what ever caused this most likely the etiology 6. Renal failure 7. Insulin-dependent diabetes mellitus 8. High blood pressure 9. See past history 04/11/2017. Patient was seen today along with the female family member. She complains of a cough. Will check her sputum for Gram stain culture and sensitivity. Her chest x-ray is essentially unchanged. She has pulmonary edema. I cannot absolutely rule out an infiltrate at the medial right base. On physical exam she still has right heart failure. ABGs on FiO2 of 32% show a pH of 7.33, PCO2 45.5, PO2 65.9 and a bicarb of 22.7. Electrolytes are normal. Yesterday I gave the patient 80 mg of Lasix and her creatinine dropped from 3.30-3.10 and a BUN dropped from 44-41. Nitrated peptide remains elevated at 972. I have begun Lasix today at 40 mg IV push every 12 hours and will probably want to increase it if it does not harm her kidneys. This lady could benefit a good bit from volume reduction. There are no positive cultures. 04/12/2017. Chest x-ray is unchanged. Electrolytes are normal. With diuresis creatinine is dropped to 2.70 with BUN of 34. The patient is on 40 mg of Lasix IV push twice daily. Today she says she can breathe better and her cough is resolved. We will continue to follow daily lab and chest x-ray. Jugular venous veins remain distended I think she still has an element of right heart failure Physical exam. Vital signs. See below. Afebrile Psychiatric. Probably oriented. Appears to be demented Face. Symmetrical. Big tongue. No edema. Neck. Short thick kyphotic Lymphatics. No submandibular cervical supraclavicular or epitrochlear adenopathy Chest. Slight congestion of the proximal trachea. I do not hear any wheezes or stridor. Heart. Impossible to auscultate secondary to patient's body habitus Abdomen. No tenderness in the right upper quadrant Extremities. Edema below the knees is well controlled with teds hose. Patient has edema in the sacrum and thighs lower abdomen. Neurologic. Cranial nerves are intact. Long track motor functions intact The rest exam is negative Plan. 04/10/2017 1. We will give 80 mg of Lasix IV push now. Patient's had some kidney problems that could have been exacerbated by diuretics so I will ask Dr. Villalpando to review and advise us on how much diuresis the patient can tolerate. If we could resolve her congestive heart failure, this most likely would help with her pulmonary hypertension and right heart failure. At home the patient was taken Norvasc 10 mg daily. Norvasc usually helps with pulmonary artery hypertension, but is unlikely to help with pulmonary venous hypertension unless it improves cardiac function and forward flow. 2. We will get follow-up chest x-ray #3 we will get ABGs. 04/11/2017. 1. See today's note above 2. Lasix 40 IV push twice daily. Hope to increase the dose 3. Follow-up chest x-ray 4. Daily BMP 5. Inhalation therapy 5. Continue Mucinex 04/12/2017. 1. See today's note above. 2. Continue diuresis and consider bigger dose of Lasix. Creatinine is actually improved with diuresis. 3. Chest x-ray and lab in the a.m. Exam (Progress Note) - Constitutional Vitals: Period Temp Pulse Resp BP Sys/Avina Pulse Ox Last 24 Hr 98.3 F-99.4 F 86-107 15-20 125-160/52-75 90-99 Results - Labs CBC & BMP: 04/09/17 05:56 04/12/17 05:39
--- NOTE | 2017-04-12 12:16 | Hospitalist Progress Note ---
Assessment and Plan (1) Chronic kidney disease Status: Chronic Assessment and plan: Impression: 1. Chronic kidney disease. This appears to be improving 2. Acute on chronic systolic and diastolic congestive heart failure 3. Deconditioning Plan: Continue diuresis. This note was completed using [employer] voice recognition software. There may be salvage repairer errors as a result. Current Visit: Yes Qualifiers: Chronic kidney disease stage: stage 3 (moderate) Qualified Code(s): N18.3 - Chronic kidney disease, stage 3 (moderate) Hospitalist: Subjective Interval history: Follow-up acute on chronic diastolic and systolic congestive heart failure, chronic kidney disease, and deconditioning. The patient continues to improve slowly. She feels better with revision of her diuretics. Kidney function is improving. Exam - Constitutional Vitals: Period Temp Pulse Resp BP Sys/Avina Pulse Ox Last 24 Hr 98.3 F-99.4 F 86-107 15-20 125-160/52-75 90-99 Vital signs are noted above. She has neck vein distention supine. Heart is regular with a physiologically split S2 and a soft systolic ejection murmur. Lungs are fairly clear anteriorly. She has 2 or 3 mm of pretibial edema. She is awake and alert. Results - Labs CBC & BMP: 04/09/17 05:56 04/12/17 05:39 Lab Results: I have reviewed the past 24 hour labs
--- NOTE | 2017-04-12 19:24 | Nephrology Progress Note ---
Nephrology - PN: Subj Interval history: 04/05/2017. The patient is resting comfortably. Serum creatinine is noted be 3.5. Started IV fluids on yesterday. We will continue with IV fluids at this time. She mentions that her breathing feels fine. BMP in a.m. 04/06/2017. The patient is resting comfortably. Serum creatinine is noted to be down to 3.3. 04/07/2017. The patient is resting comfortably. She states her breathing has improved. Follow-up chest x-ray on yesterday showed improved CHF. Serum creatinine also is improved with creatinine of 2.9. 04/11/2017. The patient is resting comfortably. Serum creatinine is the same at 3.1. 04/12/2017. The patient is resting comfortably. Serum creatinine is noted to be 2.7 which is an improvement. No other acute changes. Patient was able to participate in physical therapy today. Has been setting up in her chair a good portion of the day. Exam (PN)-Nephrology - Vital Signs Vital signs: Period Temp Pulse Resp BP Sys/Avina Pulse Ox Last 24 Hr 98.1 F-99.4 F 78-106 15-20 125-163/62-73 90-99 - General Appearance General appearance: well-developed, well-nourished, frail EENT: ATNC Neck: supple Respiratory: clear Cardiology: no edema, regular rate, regular rhythm Gastrointestinal: normoactive bowel sounds, no tenderness, no guarding Neurologic: alert and oriented x3, CN 3-12 intact Musculoskeletal: no clubbing Psychiatric: mood/affect appropriate, cooperative - Lab 04/09/17 05:56 04/12/17 05:39 Most recent lab results ABG pH 7.332 (7.35-7.45) L 04/11/17 03:51 ABG pCO2 45.5 MM HG (35-48) 04/11/17 03:51 ABG pO2 65.9 MM HG (80-95) L 04/11/17 03:51 ABG HCO3 22.7 MMOL/L (20-26) 04/11/17 03:51 ABG O2 Saturation 91.6 % (95-100) L 04/11/17 03:51 Calcium 8.3 MG/DL (8.5-10.1) L 04/12/17 05:39 Magnesium 2.6 MG/DL (1.8-2.4) H 04/12/17 05:39 Assessment and Plan (1) CHF exacerbation Status: Acute Current Visit: Yes (2) Shortness of breath Status: Acute Assessment and plan: Now with oxygen therapy. Current Visit: Yes (3) Urinary tract infection Status: Acute Assessment and plan: Repeat urinalysis. So far urine culture has been negative. Continue levaquin. Current Visit: Yes (4) Chronic kidney disease Status: Chronic Assessment and plan: Renal ultrasound shows evidence of chronic kidney disease. Renal function is stable. Current Visit: Yes Qualifiers: Chronic kidney disease stage: stage 3 (moderate) Qualified Code(s): N18.3 - Chronic kidney disease, stage 3 (moderate) (5) Hypertension Status: Chronic Current Visit: Yes Qualifiers: Hypertension type: essential hypertension Qualified Code(s): I10 - Essential (primary) hypertension (6) Insulin dependent diabetes mellitus Status: Chronic Current Visit: Yes (7) Pulmonary hypertension Status: Chronic Current Visit: Yes (8) Sleep apnea Status: Chronic Current Visit: Yes
[2017-04-13] MEDS: ALBUTEROL/IPRATROPIUM 3 ML NEB RESP TX SCH ×4 (01:05→19:34)
[2017-04-13 05:54] LABS: Calcium 8.2 MG/DL (8.5-10.1); Magnesium 2.3 MG/DL (1.8-2.4); Osmolality,Calculated 292.8 MOS/KG (273-304)
[2017-04-13] MEDS: INSULIN REGULAR 100 UNIT/ML SUBCUT SCH ×4 (08:05→20:19)
--- NOTE | 2017-04-13 08:23 | XRay Report ---
Portable chest April 13, 2017 at 0638 hours Indication: Difficulty breathing Comparison images from previous day at 0628 hours Findings: Stable cardiomegaly. No interval change in the central interstitial edema pattern. Postoperative changes in the left axilla. No acute osseous abnormalities. Impression: No change in the central interstitial edema pattern PROCEDURE INTERPRETED AT [facility] DEPARTMENT OF RADIOLOGY Final Report Signed by: Marcelino Espana
--- NOTE | 2017-04-13 08:31 | Nephrology Progress Note ---
Nephrology - PN: Subj Interval history: 04/05/2017. The patient is resting comfortably. Serum creatinine is noted be 3.5. Started IV fluids on yesterday. We will continue with IV fluids at this time. She mentions that her breathing feels fine. BMP in a.m. 04/06/2017. The patient is resting comfortably. Serum creatinine is noted to be down to 3.3. 04/07/2017. The patient is resting comfortably. She states her breathing has improved. Follow-up chest x-ray on yesterday showed improved CHF. Serum creatinine also is improved with creatinine of 2.9. 04/11/2017. The patient is resting comfortably. Serum creatinine is the same at 3.1. 04/12/2017. The patient is resting comfortably. Serum creatinine is noted to be 2.7 which is an improvement. No other acute changes. Patient was able to participate in physical therapy today. Has been setting up in her chair a good portion of the day. 04/13/2017. The patient is resting comfortably. Serum creatinine is continues to improve was now 2.5. No other acute changes. Potassium is noted to be a little low at 3.0. Will supplement potassium today with 40 mEq of potassium. Exam (PN)-Nephrology - Vital Signs Vital signs: Period Temp Pulse Resp BP Sys/Avina Pulse Ox Last 24 Hr 98.0 F-98.8 F 20-107 15-20 133-163/64-78 88-100 - General Appearance General appearance: well-developed, well-nourished EENT: ATNC Neck: supple Respiratory: clear Cardiology: regular rate, regular rhythm Gastrointestinal: normoactive bowel sounds, no tenderness Integumentary: no rash Musculoskeletal: no clubbing Psychiatric: mood/affect appropriate, cooperative - Lab 04/09/17 05:56 04/13/17 04:37 Most recent lab results ABG pH 7.332 (7.35-7.45) L 04/11/17 03:51 ABG pCO2 45.5 MM HG (35-48) 04/11/17 03:51 ABG pO2 65.9 MM HG (80-95) L 04/11/17 03:51 ABG HCO3 22.7 MMOL/L (20-26) 04/11/17 03:51 ABG O2 Saturation 91.6 % (95-100) L 04/11/17 03:51 Calcium 8.2 MG/DL (8.5-10.1) L 04/13/17 04:37 Magnesium 2.3 MG/DL (1.8-2.4) 04/13/17 04:37 Assessment and Plan (1) CHF exacerbation Status: Acute Current Visit: Yes (2) Shortness of breath Status: Acute Assessment and plan: Now with oxygen therapy. Current Visit: Yes (3) Urinary tract infection Status: Acute Assessment and plan: Urine culture is negative. Current Visit: Yes (4) Chronic kidney disease Status: Chronic Assessment and plan: Renal ultrasound shows evidence of chronic kidney disease. Renal function is stable. Current Visit: Yes Qualifiers: Chronic kidney disease stage: stage 3 (moderate) Qualified Code(s): N18.3 - Chronic kidney disease, stage 3 (moderate) (5) Hypertension Status: Chronic Current Visit: Yes Qualifiers: Hypertension type: essential hypertension Qualified Code(s): I10 - Essential (primary) hypertension (6) Insulin dependent diabetes mellitus Status: Chronic Current Visit: Yes (7) Pulmonary hypertension Status: Chronic Current Visit: Yes (8) Sleep apnea Status: Chronic Current Visit: Yes
[2017-04-13] MEDS: POLYETHYLENE GLYCOL POWDER 17 GM PACK PO SCH (08:50)
[2017-04-13] MEDS: ASCORBIC ACID 500 MG TABLET PO SCH ×2 (08:50→20:19)
[2017-04-13] MEDS: METOPROLOL SUCCINATE XL 100 MG TABLET PO SCH (08:51)
[2017-04-13] MEDS: ISOSORBIDE MONONITRATE 30 MG TABLET PO SCH (08:51)
[2017-04-13] MEDS: POTASSIUM CHLORIDE 20 MEQ TABLET PO SCH (08:51)
[2017-04-13] MEDS: DILTIAZEM CD 240 MG CAPSULE PO SCH (08:51)
[2017-04-13] MEDS: APIXABAN 2.5 MG TABLET PO SCH ×2 (08:51→20:18)
[2017-04-13] MEDS: INSULIN NPH 100 UNIT/ML SUBCUT SCH (08:51)
[2017-04-13] MEDS: ASPIRIN EC 81 MG TABLET PO SCH (08:51)
[2017-04-13] MEDS: FUROSEMIDE 40 MG/4 ML VIAL IV SCH ×2 (08:52→17:40)
[2017-04-13 11:26] LABS: % Iron Saturation 7.3 % (18-50)
[2017-04-13 11:35] LABS: Folate 7.2 NG/ML (5.4-24.0)
--- NOTE | 2017-04-13 11:48 | Pulmonology Progress Note ---
Pulmonary - PN: Subj Interval history: Estevan Brooks, [facility], acting as scribe for Dr. Rivas Scales Ms. Churchill is an 87-year-old -[place] female who we saw in initial pulmonary consultation on 04/10/2017. At that time, our impressions were: 1. Congestive heart failure. 2. Decreased ejection fraction. Mild aortic insufficiency and mild mitral regurgitation 3. Obstructive sleep apnea. 4. Pulmonary arterial hypertension/pulmonary venous hypertension. This could be either or both. Poor cardiac output and valvular disease could cause pulmonary venous hypertension. Obstructive sleep apnea could certainly play a part pulmonary artery hypertension. Usually not as high as this patient is said to have. There is been no evidence of pulmonary emboli as a cause. 5. Clinically the patient has right heart failure with distended jugular veins , positive hepatojugular reflux and peripheral edema. Pulmonary hypertension from what ever caused this most likely the etiology 6. Renal failure 7. Insulin-dependent diabetes mellitus 8. High blood pressure 9. See past history 04/11/2017. Patient was seen today along with a female family member her nurse. The female family member that is present states the patient did not rest well through the night secondary to a dry hacking cough. She is on Mucinex 600 mg twice daily, but has not been receiving any inhalation therapy. We have started duo nebs 4 times daily and as needed. She has left and right heart failure. She is being diuresed. She also has chronic renal failure and is followed from nephrology standpoint by Dr. Caraballo. Creatinine today is 3.10. Chest x-ray is stable. BNP has improved to 972. Medications have been reviewed. Inhalation therapy has been started today. Labs been reviewed. Creatinine 3.10, BUN 41, electrolytes are normal; magnesium 2.8; BNP 972 ABGs this morning on an FiO2 32% show pH 7.332, PCO2 45.5, PO2 65.9, bicarb 22.7 , oxygen saturation 91.6% 04/12/2017. Chest x-ray is unchanged. Electrolytes are normal. With diuresis creatinine is dropped to 2.70 with BUN of 34. The patient is on 40 mg of Lasix IV push twice daily. Today she says she can breathe better and her cough is resolved. We will continue to follow daily lab and chest x-ray. Jugular venous veins remain distended I think she still has an element of right heart failure. 04/13/2017. The patient seen today along with a female family member. The patient feels her shortness of breath has improved. Her extremities are less edematous. We made no change meds to her pulmonary regimen today. Chest x-ray is stable. Potassium is low at 3.0 but this is being replaced as per Dr. Caraballo who is following along in nephrology consultation. The patient is anemic. We have ordered iron studies, B12 level, and folate level. I suspect she is going to have iron deficiency anemia. She is working with physical therapy. It still our understanding that the patient and her family are declining swing bed placement on discharge and prefer to go home. Medications have been reviewed. We made no changes today. Labs been reviewed. Creatinine improved to 2.50, BUN 34, sodium 144, potassium 3.0, magnesium 2.3 Exam (Progress Note) - Constitutional Vitals: Period Temp Pulse Resp BP Sys/Avina Pulse Ox Last 24 Hr 98.0 F-98.8 F 20-107 15-20 133-163/64-78 88-100 Exam: Chest is symmetrical with decreased respiratory excursion secondary to body habitus; wheeze free Heart sounds are distant Abdomen is obese, but nontender; bowel sounds are positive 4 Extremities less edematous thighs and sacrum; note, Doppler venograms negative this admission Psychiatric oriented 3 Neurologic long-term motor function is intact Plan: Continue present therapy. Continue duo nebs 4 times daily and as needed. Check iron, iron saturation, total iron-binding capacity, B12 level, and folate. See orders. Results - Labs CBC & BMP: 04/09/17 05:56 04/13/17 04:37
[2017-04-13] MEDS: LEVOFLOXACIN INJ 250 MG in PREMIX 1 EACH IV SCH (13:07)
--- NOTE | 2017-04-13 13:48 | Hospitalist Progress Note ---
Assessment and Plan (1) Chronic kidney disease Status: Chronic Assessment and plan: Impression: 1. Chronic kidney disease, kidney function continuing to improve 2. Acute on chronic systolic and diastolic congestive heart failure 3. Deconditioning, improving Plan: Continue diuresis and physical therapy.. This note was completed using Re-[employer] voice recognition software. There may be hotel office manager errors as a result. Current Visit: Yes Qualifiers: Chronic kidney disease stage: stage 3 (moderate) Qualified Code(s): N18.3 - Chronic kidney disease, stage 3 (moderate) Hospitalist: Subjective Interval history: Follow-up chronic kidney disease, acute on chronic diastolic congestive heart failure, and deconditioning. The patient's dyspnea continues to improve. She was able to get up and walk with physical therapy. She says that she made it from her bed to the hallway. Creatinine continues to decline even though diuretics have been increased. Exam - Constitutional Vitals: Period Temp Pulse Resp BP Sys/Avina Pulse Ox Last 24 Hr 98.0 F-98.8 F 20-110 15-20 135-163/72-78 88-99 Vital signs are noted above. Heart is regular with distant tones and a 2/6 systolic ejection murmur. I do not hear a gallop. Neck veins are distended supine. She has a few scattered rales in the chest. Abdomen is obese. She has a couple millimeters of peripheral edema. She is awake and alert. Results - Labs CBC & BMP: 04/09/17 05:56 04/13/17 04:37 Lab Results: I have reviewed the past 24 hour labs
[2017-04-13] MEDS: guaiFENesin 200 MG/10 ML UDCUP PO PRN (22:03)
[2017-04-14] MEDS: ALBUTEROL/IPRATROPIUM 3 ML NEB RESP TX SCH ×4 (00:19→19:14)
[2017-04-14 06:13] LABS: Calcium 8.5 MG/DL (8.5-10.1); Osmolality,Calculated 294.6 MOS/KG (273-304)
[2017-04-14] MEDS: INSULIN REGULAR 100 UNIT/ML SUBCUT SCH ×4 (08:03→21:48)
--- NOTE | 2017-04-14 08:47 | XRay Report ---
Portable chest Exam date: 04/14/2017 4:00 AM Indication: Shortness of breath, cough Comparison: Previous day at 0638 hours Findings: Cardiomediastinal contours are stable with underlying cardiomegaly. Pulmonary venous congestion with mild central interstitial edema, unchanged. Bibasilar stranding parenchymal densities are again noted. No acute osseous abnormalities. Visualized upper abdomen demonstrates no acute pathology. Impression: No interval change in the appearance the chest PROCEDURE INTERPRETED AT [facility] DEPARTMENT OF RADIOLOGY Final Report Signed by: Marcelino Espana
[2017-04-14] MEDS: APIXABAN 2.5 MG TABLET PO SCH ×2 (09:37→21:47)
[2017-04-14] MEDS: DILTIAZEM CD 240 MG CAPSULE PO SCH (09:38)
[2017-04-14] MEDS: guaiFENesin 200 MG/10 ML UDCUP PO PRN ×2 (09:38→18:00)
[2017-04-14] MEDS: POTASSIUM CHLORIDE 20 MEQ TABLET PO SCH (09:38)
[2017-04-14] MEDS: ASCORBIC ACID 500 MG TABLET PO SCH ×2 (09:38→21:47)
[2017-04-14] MEDS: METOPROLOL SUCCINATE XL 100 MG TABLET PO SCH (09:38)
[2017-04-14] MEDS: ISOSORBIDE MONONITRATE 30 MG TABLET PO SCH (09:39)
[2017-04-14] MEDS: FUROSEMIDE 40 MG/4 ML VIAL IV SCH ×2 (09:39→17:22)
[2017-04-14] MEDS: ASPIRIN EC 81 MG TABLET PO SCH (09:39)
[2017-04-14] MEDS: INSULIN NPH 100 UNIT/ML SUBCUT SCH (09:39)
[2017-04-14] MEDS: POLYETHYLENE GLYCOL POWDER 17 GM PACK PO SCH (09:40)
--- NOTE | 2017-04-14 11:59 | Hospitalist Progress Note ---
Assessment and Plan (1) Chronic kidney disease Status: Chronic Assessment and plan: Impression: 1. Chronic kidney disease, kidney function continuing to improve 2. Acute on chronic systolic and diastolic congestive heart failure, improving. There is also evidence of pulmonary hypertension 3. Deconditioning, improving Plan: Continue diuresis and physical therapy. I expect that she can be discharged with home health and home PT the first part of next week. This note was completed using [employer] voice recognition software. There may be oil speculator errors as a result. Current Visit: Yes Qualifiers: Chronic kidney disease stage: stage 3 (moderate) Qualified Code(s): N18.3 - Chronic kidney disease, stage 3 (moderate) Hospitalist: Subjective Interval history: Follow-up acute on chronic diastolic and systolic congestive heart failure, deconditioning, and chronic kidney disease. The patient continues to improve slowly. Her Santacruz catheter has been removed, and she has been able to get out of the bed. She walked out to the door with physical therapy yesterday; she has not yet had PT today. Oral intake continues to improve slowly. Exam - Constitutional Vitals: Period Temp Pulse Resp BP Sys/Avina Pulse Ox Last 24 Hr 98.2 F-99.2 F 83-110 12-20 135-163/69-87 92-99 Vital signs are noted above. Heart is regular with a soft systolic murmur. She has neck vein distention at about 30. This is unchanged. Chest is fairly clear. She has a few rales in the bases. Peripheral edema continues to improve. She is awake and alert. Results - Labs CBC & BMP: 04/09/17 05:56 04/14/17 05:04 Lab Results: I have reviewed the past 24 hour labs (Creatinine continues to trend downward.)
[2017-04-14] MEDS: FERROUS SULFATE 325 MG TABLET PO SCH ×2 (12:35→21:48)
--- NOTE | 2017-04-14 12:51 | Nephrology Progress Note ---
Nephrology - PN: Subj Interval history: 04/05/2017. The patient is resting comfortably. Serum creatinine is noted be 3.5. Started IV fluids on yesterday. We will continue with IV fluids at this time. She mentions that her breathing feels fine. BMP in a.m. 04/06/2017. The patient is resting comfortably. Serum creatinine is noted to be down to 3.3. 04/07/2017. The patient is resting comfortably. She states her breathing has improved. Follow-up chest x-ray on yesterday showed improved CHF. Serum creatinine also is improved with creatinine of 2.9. 04/11/2017. The patient is resting comfortably. Serum creatinine is the same at 3.1. 04/12/2017. The patient is resting comfortably. Serum creatinine is noted to be 2.7 which is an improvement. No other acute changes. Patient was able to participate in physical therapy today. Has been setting up in her chair a good portion of the day. 04/13/2017. The patient is resting comfortably. Serum creatinine is continues to improve was now 2.5. No other acute changes. Potassium is noted to be a little low at 3.0. Will supplement potassium today with 40 mEq of potassium. 04/14/2017. The patient is resting comfortably. Serum creatinine continues to trend down now 2.30. No other acute changes. Continue with potassium supplement for this patient. Exam (PN)-Nephrology - Vital Signs Vital signs: Period Temp Pulse Resp BP Sys/Avina Pulse Ox Last 24 Hr 98.2 F-99.2 F 83-110 12-20 135-163/69-87 92-99 - General Appearance General appearance: well-developed, frail EENT: ATNC Neck: supple Respiratory: clear Cardiology: regular rate, regular rhythm Gastrointestinal: normoactive bowel sounds, no tenderness, no guarding Neurologic: alert and oriented x3 Psychiatric: mood/affect appropriate, cooperative - Lab 04/09/17 05:56 04/14/17 05:04 Most recent lab results ABG pH 7.332 (7.35-7.45) L 04/11/17 03:51 ABG pCO2 45.5 MM HG (35-48) 04/11/17 03:51 ABG pO2 65.9 MM HG (80-95) L 04/11/17 03:51 ABG HCO3 22.7 MMOL/L (20-26) 04/11/17 03:51 ABG O2 Saturation 91.6 % (95-100) L 04/11/17 03:51 Calcium 8.5 MG/DL (8.5-10.1) 04/14/17 05:04 Magnesium 2.0 MG/DL (1.8-2.4) 04/14/17 05:04 Assessment and Plan (1) CHF exacerbation Status: Acute Current Visit: Yes (2) Shortness of breath Status: Acute Assessment and plan: Now with oxygen therapy. Current Visit: Yes (3) Urinary tract infection Status: Acute Assessment and plan: Urine culture is negative. Current Visit: Yes (4) Chronic kidney disease Status: Chronic Assessment and plan: Renal ultrasound shows evidence of chronic kidney disease. Renal function is stable. Current Visit: Yes Qualifiers: Chronic kidney disease stage: stage 3 (moderate) Qualified Code(s): N18.3 - Chronic kidney disease, stage 3 (moderate) (5) Hypertension Status: Chronic Current Visit: Yes Qualifiers: Hypertension type: essential hypertension Qualified Code(s): I10 - Essential (primary) hypertension (6) Insulin dependent diabetes mellitus Status: Chronic Current Visit: Yes (7) Pulmonary hypertension Status: Chronic Current Visit: Yes (8) Sleep apnea Status: Chronic Current Visit: Yes
--- NOTE | 2017-04-14 13:28 | Pulmonology Progress Note ---
Pulmonary - PN: Subj Interval history: Estevan Brooks, [facility], acting as scribe for Dr. Rivas Scales Ms. Churchill is an 87-year-old -[place] female who we saw in initial pulmonary consultation on 04/10/2017. At that time, our impressions were: 1. Congestive heart failure. 2. Decreased ejection fraction. Mild aortic insufficiency and mild mitral regurgitation 3. Obstructive sleep apnea. 4. Pulmonary arterial hypertension/pulmonary venous hypertension. This could be either or both. Poor cardiac output and valvular disease could cause pulmonary venous hypertension. Obstructive sleep apnea could certainly play a part pulmonary artery hypertension. Usually not as high as this patient is said to have. There is been no evidence of pulmonary emboli as a cause. 5. Clinically the patient has right heart failure with distended jugular veins , positive hepatojugular reflux and peripheral edema. Pulmonary hypertension from what ever caused this most likely the etiology 6. Renal failure 7. Insulin-dependent diabetes mellitus 8. High blood pressure 9. See past history 04/11/2017. Patient was seen today along with a female family member and her nurse. The female family member that is present states the patient did not rest well through the night secondary to a dry hacking cough. She is on Mucinex 600 mg twice daily, but has not been receiving any inhalation therapy. We have started duo nebs 4 times daily and as needed. She has left and right heart failure. She is being diuresed. She also has chronic renal failure and is followed from nephrology standpoint by Dr. Caraballo. Creatinine today is 3.10. Chest x-ray is stable. BNP has improved to 972. Medications have been reviewed. Inhalation therapy has been started today. Labs been reviewed. Creatinine 3.10, BUN 41, electrolytes are normal; magnesium 2.8; BNP 972 ABGs this morning on an FiO2 32% show pH 7.332, PCO2 45.5, PO2 65.9, bicarb 22.7 , oxygen saturation 91.6% 04/12/2017. Chest x-ray is unchanged. Electrolytes are normal. With diuresis creatinine is dropped to 2.70 with BUN of 34. The patient is on 40 mg of Lasix IV push twice daily. Today she says she can breathe better and her cough is resolved. We will continue to follow daily lab and chest x-ray. Jugular venous veins remain distended I think she still has an element of right heart failure. 04/13/2017. The patient seen today along with a female family member. The patient feels her shortness of breath has improved. Her extremities are less edematous. We made no change meds to her pulmonary regimen today. Chest x-ray is stable. Potassium is low at 3.0 but this is being replaced as per Dr. Caraballo who is following along in nephrology consultation. The patient is anemic. We have ordered iron studies, B12 level, and folate level. I suspect she is going to have iron deficiency anemia. She is working with physical therapy. It still our understanding that the patient and her family are declining swing bed placement on discharge and prefer to go home. Medications have been reviewed. We made no changes today. Labs been reviewed. Creatinine improved to 2.50, BUN 34, sodium 144, potassium 3.0, magnesium 2.3 04/14/2017. The patient was seen today along with her daughter. We have discussed the case today with Dr. Reid and coordinated her care. Patient states her breathing continues to improve daily. She states the cough "comes and goes". It is primarily dry, but occasionally she is able to mobilize some sputum that she describes as "thick phlegm". We have asked for another sputum for Gram stain, culture and sensitivity. Previous sputum culture only grew Acrly albicans. Chest x-ray stable. She is being followed from nephrology standpoint by Dr. Caraballo. With diuresis her creatinine has improved from 3.0- 2.30 today. Her potassium, however, is low at 3.0. This is being replaced. She is working with physical therapy. She was noted to be anemic, and anemia workup was done. She has been found to have iron deficiency anemia with an iron level of 18, iron saturation 7.3%, and total iron-binding capacity 246. We have started ferrous sulfate 325 mg twice daily. Vitamin B12 level and folate level were both normal. Medications have been reviewed. Ferrous sulfate was started today. Labs been reviewed. Creatinine improved to 2.30, BUN 30, sodium 146, potassium 3.0, magnesium 2.0 Exam (Progress Note) - Constitutional Vitals: Period Temp Pulse Resp BP Sys/Avina Pulse Ox Last 24 Hr 98.2 F-99.2 F 83-109 12-20 135-163/69-87 92-99 Exam: Chest is symmetrical with decreased respiratory excursion secondary to body habitus; wheeze free Heart sounds are distant Abdomen is obese, but nontender; bowel sounds are positive 4 Extremities less edematous thighs and sacrum; note, Doppler venograms negative this admission Psychiatric oriented 3 Neurologic long-term motor function is intact Plan: Continue present therapy. Continue duo nebs 4 times daily and as needed. Start ferrous sulfate 325 mg p.o. twice daily. We have reordered a sputum for Gram stain, culture and sensitivity and this can be followed up if the patient is able to produce a sputum for testing. Overall, the patient stable from a pulmonary standpoint. After today, we will be out of town until 2016. Therefore, we will sign off. Should any pulmonary questions arise, please contact Dr. Paredes as he is money laundering investigator this weekend. Results - Labs CBC & BMP: 04/09/17 05:56 04/14/17 05:04
[2017-04-15] MEDS: ALBUTEROL/IPRATROPIUM 3 ML NEB RESP TX SCH ×4 (00:18→21:04)
--- NOTE | 2017-04-15 07:59 | Hospitalist Progress Note ---
Assessment and Plan (1) Sleep apnea Status: Chronic Assessment and plan: Under chronic treatment with CPAP. Elevated pulmonary artery pressures with presumptive cor pulmonale Current Visit: Yes (2) Chronic kidney disease Status: Chronic Assessment and plan: Renal ultrasound demonstrates evidence of chronic disease with probable superimposed prerenal component Current Visit: Yes Qualifiers: Chronic kidney disease stage: stage 3 (moderate) Qualified Code(s): N18.3 - Chronic kidney disease, stage 3 (moderate) Hospitalist: Subjective Interval history: 87-year-old female with right ventricular dysfunction associated with an a calculated right ventricular systolic pressure of 75-80 mmHg. She is being diuresed for volume overload with a stable to slightly improving creatinine level. She has been treated for sleep apnea by her report for approximately 3 years. Her echocardiogram in addition to the pulmonary hypertension shows an ejection fraction of 45%. She has severe concentric hypertrophy and her mitral valve is described as showing only mild regurgitation. Her vital signs overnight were stable capillary blood glucose is acceptable. Exam - Constitutional Vitals: Period Temp Pulse Resp BP Sys/Avina Pulse Ox Last 24 Hr 98.1 F-99 F 69-109 12-93 141-172/69-81 92-99 General appearance: morbidly obese - Respiratory Respiratory exam: Present: other (Diminished bibasilar breath sounds with slight vesicular changes). Absent: rales, rhonchi, wheezes - Cardiovascular Cardiovascular exam: Present: irregular rhythm (Presumptive ventricular premature depolarization), systolic murmur (Most likely tricuspid regurgitation across the mid precordium), other - GI/Abdominal GI/Abdominal exam: Present: normal bowel sounds. Absent: ascites, tenderness - Extremities Exam Extremities exam: Absent: edema - Neurological Exam Neurological exam: Present: alert, oriented X3 Results - Labs CBC & BMP: 04/09/17 05:56 04/14/17 05:04
[2017-04-15] MEDS: INSULIN REGULAR 100 UNIT/ML SUBCUT SCH ×4 (09:13→22:07)
[2017-04-15] MEDS: METOPROLOL SUCCINATE XL 100 MG TABLET PO SCH (09:14)
[2017-04-15] MEDS: ASCORBIC ACID 500 MG TABLET PO SCH ×2 (09:15→22:06)
[2017-04-15] MEDS: POTASSIUM CHLORIDE 20 MEQ TABLET PO SCH (09:15)
[2017-04-15] MEDS: DILTIAZEM CD 240 MG CAPSULE PO SCH (09:16)
[2017-04-15] MEDS: ISOSORBIDE MONONITRATE 30 MG TABLET PO SCH (09:16)
[2017-04-15] MEDS: FERROUS SULFATE 325 MG TABLET PO SCH ×2 (09:17→22:07)
[2017-04-15] MEDS: guaiFENesin 200 MG/10 ML UDCUP PO PRN ×2 (09:18→22:10)
[2017-04-15] MEDS: APIXABAN 2.5 MG TABLET PO SCH ×2 (09:18→22:06)
[2017-04-15] MEDS: FUROSEMIDE 40 MG/4 ML VIAL IV SCH ×2 (09:19→15:48)
[2017-04-15] MEDS: INSULIN NPH 100 UNIT/ML SUBCUT SCH (09:19)
[2017-04-15] MEDS: POLYETHYLENE GLYCOL POWDER 17 GM PACK PO SCH (09:23)
[2017-04-15] MEDS: ASPIRIN EC 81 MG TABLET PO SCH (09:23)
[2017-04-15] MEDS: LEVOFLOXACIN INJ 250 MG in PREMIX 1 EACH IV SCH (12:52)
--- NOTE | 2017-04-15 19:42 | Nephrology Progress Note ---
Nephrology - PN: Subj Interval history: 04/05/2017. The patient is resting comfortably. Serum creatinine is noted be 3.5. Started IV fluids on yesterday. We will continue with IV fluids at this time. She mentions that her breathing feels fine. BMP in a.m. 04/06/2017. The patient is resting comfortably. Serum creatinine is noted to be down to 3.3. 04/07/2017. The patient is resting comfortably. She states her breathing has improved. Follow-up chest x-ray on yesterday showed improved CHF. Serum creatinine also is improved with creatinine of 2.9. 04/11/2017. The patient is resting comfortably. Serum creatinine is the same at 3.1. 04/12/2017. The patient is resting comfortably. Serum creatinine is noted to be 2.7 which is an improvement. No other acute changes. Patient was able to participate in physical therapy today. Has been setting up in her chair a good portion of the day. 04/13/2017. The patient is resting comfortably. Serum creatinine is continues to improve was now 2.5. No other acute changes. Potassium is noted to be a little low at 3.0. Will supplement potassium today with 40 mEq of potassium. 04/14/2017. The patient is resting comfortably. Serum creatinine continues to trend down now 2.30. No other acute changes. Continue with potassium supplement for this patient. 04/15/2007. The patient is resting comfortably. She is visiting with family. No shortness of breath or chest pain. Exam (PN)-Nephrology - Vital Signs Vital signs: Period Temp Pulse Resp BP Sys/Avina Pulse Ox Last 24 Hr 98.1 F-99 F 72-118 16-93 142-184/62-89 92-99 - General Appearance General appearance: well-developed, fatigue, frail EENT: ATNC Respiratory: clear Cardiology: regular rate, regular rhythm Gastrointestinal: normoactive bowel sounds Integumentary: no rash Musculoskeletal: no clubbing Psychiatric: mood/affect appropriate, cooperative - Lab 04/09/17 05:56 04/14/17 05:04 Most recent lab results ABG pH 7.332 (7.35-7.45) L 04/11/17 03:51 ABG pCO2 45.5 MM HG (35-48) 04/11/17 03:51 ABG pO2 65.9 MM HG (80-95) L 04/11/17 03:51 ABG HCO3 22.7 MMOL/L (20-26) 04/11/17 03:51 ABG O2 Saturation 91.6 % (95-100) L 04/11/17 03:51 Calcium 8.5 MG/DL (8.5-10.1) 04/14/17 05:04 Magnesium 2.0 MG/DL (1.8-2.4) 04/15/17 08:00 Assessment and Plan (1) CHF exacerbation Status: Acute Current Visit: Yes (2) Shortness of breath Status: Acute Assessment and plan: Now with oxygen therapy. Current Visit: Yes (3) Urinary tract infection Status: Acute Assessment and plan: Urine culture is negative. Current Visit: Yes (4) Chronic kidney disease Status: Chronic Assessment and plan: Renal ultrasound shows evidence of chronic kidney disease. Renal function is stable. Current Visit: Yes Qualifiers: Chronic kidney disease stage: stage 3 (moderate) Qualified Code(s): N18.3 - Chronic kidney disease, stage 3 (moderate) (5) Hypertension Status: Chronic Current Visit: Yes Qualifiers: Hypertension type: essential hypertension Qualified Code(s): I10 - Essential (primary) hypertension (6) Insulin dependent diabetes mellitus Status: Chronic Current Visit: Yes (7) Pulmonary hypertension Status: Chronic Current Visit: Yes (8) Sleep apnea Status: Chronic Current Visit: Yes
[2017-04-16] MEDS: ALBUTEROL/IPRATROPIUM 3 ML NEB RESP TX SCH ×4 (01:11→19:10)
[2017-04-16 05:52] LABS: Calcium 8.6 MG/DL (8.5-10.1); Magnesium 2.1 MG/DL (1.8-2.4); Osmolality,Calculated 293.6 MOS/KG (273-304)
--- NOTE | 2017-04-16 07:47 | Hospitalist Progress Note ---
Assessment and Plan (1) Sleep apnea Status: Chronic Assessment and plan: Under chronic treatment with CPAP. Elevated pulmonary artery pressures with presumptive cor pulmonale, chronic atrial fibrillation with echocardiographic ejection fraction 45% and severe concentric left ventricular hypertrophy. Current Visit: Yes (2) Chronic kidney disease Status: Chronic Assessment and plan: Renal ultrasound demonstrates evidence of chronic disease with probable superimposed prerenal component Current Visit: Yes Qualifiers: Chronic kidney disease stage: stage 3 (moderate) Qualified Code(s): N18.3 - Chronic kidney disease, stage 3 (moderate) Hospitalist: Subjective Interval history: 87-year-old female with right ventricular dysfunction associated with a calculated echocardiographic right ventricular systolic pressure of 75-80 mmHg. She is being diuresed for volume overload. She has known obstructive sleep apnea on active treatment for 3 years. Her echocardiogram has shown an ejection fraction of 45% with severe concentric hypertrophy. She is in atrial fibrillation and earlier this morning demonstrated a period of wide-complex consistent with ventricular origin. With the diuresis she has been consistently hypokalemic. Her vital signs are stable overnight she has had no significant dyspnea and her capillary blood glucoses are acceptable. Exam - Constitutional Vitals: Period Temp Pulse Resp BP Sys/Avina Pulse Ox Last 24 Hr 98.2 F-98.9 F 78-118 16-18 141-184/62-89 92-99 General appearance: morbidly obese - Respiratory Respiratory exam: Present: other (Vesicular breath sounds at bases). Absent: rales, rhonchi, wheezes - Cardiovascular Cardiovascular exam: Present: irregular rhythm, JVD (Persistent elevation), systolic murmur, other (Prominent right ventricular lift) - GI/Abdominal GI/Abdominal exam: Present: normal bowel sounds. Absent: tenderness - Extremities Exam Extremities exam: Absent: edema - Neurological Exam Neurological exam: Present: alert, oriented X3 Results - Labs CBC & BMP: 04/09/17 05:56 04/16/17 04:55
[2017-04-16] MEDS: INSULIN REGULAR 100 UNIT/ML SUBCUT SCH ×4 (08:33→22:06)
[2017-04-16] MEDS: POTASSIUM CHLORIDE 20 MEQ TABLET PO SCH ×4 (09:14→22:10)
[2017-04-16] MEDS: guaiFENesin 200 MG/10 ML UDCUP PO PRN (09:15)
[2017-04-16] MEDS: ISOSORBIDE MONONITRATE 30 MG TABLET PO SCH (09:16)
[2017-04-16] MEDS: ASCORBIC ACID 500 MG TABLET PO SCH ×2 (09:16→22:04)
[2017-04-16] MEDS: ASPIRIN EC 81 MG TABLET PO SCH (09:16)
[2017-04-16] MEDS: APIXABAN 2.5 MG TABLET PO SCH ×2 (09:16→22:03)
[2017-04-16] MEDS: FERROUS SULFATE 325 MG TABLET PO SCH ×2 (09:16→22:03)
[2017-04-16] MEDS: METOPROLOL SUCCINATE XL 100 MG TABLET PO SCH (09:16)
[2017-04-16] MEDS: DILTIAZEM CD 240 MG CAPSULE PO SCH (09:16)
[2017-04-16] MEDS: INSULIN NPH 100 UNIT/ML SUBCUT SCH (09:18)
[2017-04-16] MEDS: FUROSEMIDE 40 MG/4 ML VIAL IV SCH ×2 (09:19→17:08)
[2017-04-16] MEDS: POLYETHYLENE GLYCOL POWDER 17 GM PACK PO SCH (09:51)
--- NOTE | 2017-04-16 11:58 | Nephrology Progress Note ---
Nephrology - PN: Subj Interval history: 04/05/2017. The patient is resting comfortably. Serum creatinine is noted be 3.5. Started IV fluids on yesterday. We will continue with IV fluids at this time. She mentions that her breathing feels fine. BMP in a.m. 04/06/2017. The patient is resting comfortably. Serum creatinine is noted to be down to 3.3. 04/07/2017. The patient is resting comfortably. She states her breathing has improved. Follow-up chest x-ray on yesterday showed improved CHF. Serum creatinine also is improved with creatinine of 2.9. 04/11/2017. The patient is resting comfortably. Serum creatinine is the same at 3.1. 04/12/2017. The patient is resting comfortably. Serum creatinine is noted to be 2.7 which is an improvement. No other acute changes. Patient was able to participate in physical therapy today. Has been setting up in her chair a good portion of the day. 04/13/2017. The patient is resting comfortably. Serum creatinine is continues to improve was now 2.5. No other acute changes. Potassium is noted to be a little low at 3.0. Will supplement potassium today with 40 mEq of potassium. 04/14/2017. The patient is resting comfortably. Serum creatinine continues to trend down now 2.30. No other acute changes. Continue with potassium supplement for this patient. 04/15/2017. The patient is resting comfortably. She is visiting with family. No shortness of breath or chest pain. 04/16/2017. The patient is resting comfortably. She is sitting up in a chair visiting with family. She voices no complaints no shortness of breath reported. Serum creatinine is noted to be 2 today. Continue to supplement the patient's potassium. Exam (PN)-Nephrology - Vital Signs Vital signs: Period Temp Pulse Resp BP Sys/Avina Pulse Ox Last 24 Hr 98.2 F-99.2 F 78-118 16-18 141-184/62-89 91-99 - General Appearance General appearance: well-developed, appears started age EENT: ATNC Neck: supple Respiratory: clear Cardiology: regular rate, regular rhythm Gastrointestinal: normoactive bowel sounds, no tenderness Integumentary: no rash Neurologic: alert and oriented x3 Psychiatric: mood/affect appropriate, cooperative - Lab 04/09/17 05:56 04/16/17 04:55 Most recent lab results ABG pH 7.332 (7.35-7.45) L 04/11/17 03:51 ABG pCO2 45.5 MM HG (35-48) 04/11/17 03:51 ABG pO2 65.9 MM HG (80-95) L 04/11/17 03:51 ABG HCO3 22.7 MMOL/L (20-26) 04/11/17 03:51 ABG O2 Saturation 91.6 % (95-100) L 04/11/17 03:51 Calcium 8.6 MG/DL (8.5-10.1) 04/16/17 04:55 Magnesium 2.1 MG/DL (1.8-2.4) 04/16/17 04:55 Assessment and Plan (1) CHF exacerbation Status: Acute Current Visit: Yes (2) Shortness of breath Status: Acute Assessment and plan: Now with oxygen therapy. Current Visit: Yes (3) Urinary tract infection Status: Acute Assessment and plan: Urine culture is negative. Current Visit: Yes (4) Chronic kidney disease Status: Chronic Assessment and plan: Renal ultrasound shows evidence of chronic kidney disease. Renal function is stable. Current Visit: Yes Qualifiers: Chronic kidney disease stage: stage 3 (moderate) Qualified Code(s): N18.3 - Chronic kidney disease, stage 3 (moderate) (5) Hypertension Status: Chronic Current Visit: Yes Qualifiers: Hypertension type: essential hypertension Qualified Code(s): I10 - Essential (primary) hypertension (6) Insulin dependent diabetes mellitus Status: Chronic Current Visit: Yes (7) Pulmonary hypertension Status: Chronic Current Visit: Yes (8) Sleep apnea Status: Chronic Current Visit: Yes
[2017-04-17 05:34] LABS: Basophils % 0.2 % (0.0-0.8); Eosinophils # 0.1 10*3/uL (0.0-0.87); Eosinophils % 2.6 % (0.00-10.9); Hematocrit 32.6 VOL% (35.7-47.0); Hemoglobin 9.9 GM/DL (12.0-16.0); Immature Granulocytes % 0.6 %; Immature Granulocytes Absolute 0.03 #; Lymphocytes # 0.9 10*3/uL (1.4-4.0); Mean Corpuscular HGB Conc 30.4 GM/DL (32-36); Mean Corpuscular Hemoglobin 25 PG (27-34); Mean Corpuscular Volume 83.8 FL (87-102); Mean Platelet Volume 10.7 FL (9.6-12.0); Monocytes # 0.8 10*3/uL (0.11-0.8); Monocytes % 14.2 % (1.7-12.7); Neutrophils # 3.5 10*3/uL (1.4-7.4); Neutrophils % 65.4 % (38.7-73.9); Platelet Count 249 T/CUMM (130-400); Red Blood Count 3.89 MC/CUMM (3.8-5.5); Red Cell Distribution Width 18.9 % (9.3-17.3); White Blood Count 5.4 T/CUMM (4-12)
[2017-04-17 06:27] LABS: Calcium 8.5 MG/DL (8.5-10.1); Magnesium 1.9 MG/DL (1.8-2.4); Osmolality,Calculated 292.6 MOS/KG (273-304); Potassium 4.1 MMOL/L (3.5-5.1)
[2017-04-17] MEDS: ALBUTEROL/IPRATROPIUM 3 ML NEB RESP TX SCH ×3 (07:53→12:28)
[2017-04-17] MEDS: FERROUS SULFATE 325 MG TABLET PO SCH (09:34)
[2017-04-17] MEDS: ASCORBIC ACID 500 MG TABLET PO SCH (09:34)
[2017-04-17] MEDS: METOPROLOL SUCCINATE XL 100 MG TABLET PO SCH (09:34)
[2017-04-17] MEDS: APIXABAN 2.5 MG TABLET PO SCH (09:34)
[2017-04-17] MEDS: INSULIN NPH 100 UNIT/ML SUBCUT SCH (09:35)
[2017-04-17] MEDS: FUROSEMIDE 40 MG/4 ML VIAL IV SCH (09:35)
[2017-04-17] MEDS: DILTIAZEM CD 240 MG CAPSULE PO SCH (09:35)
[2017-04-17] MEDS: ISOSORBIDE MONONITRATE 30 MG TABLET PO SCH (09:35)
[2017-04-17] MEDS: ASPIRIN EC 81 MG TABLET PO SCH (09:35)
[2017-04-17] MEDS: INSULIN REGULAR 100 UNIT/ML SUBCUT SCH ×2 (09:39→12:14)
[2017-04-17] MEDS: guaiFENesin 200 MG/10 ML UDCUP PO PRN (09:42)
[2017-04-17] MEDS: POLYETHYLENE GLYCOL POWDER 17 GM PACK PO SCH (09:44)
--- NOTE | 2017-04-17 10:40 | Discharge Summary ---
<Jonathan Raines - Last Filed: 04/17/17 10:37> Hospital Course - Hospital Course Hospital Course: Ms. Churchill is a 87-year-old -Martiniquais female with a history of hypertension, diabetes, CHF, ANASTACIO, and CAD with an MO that presented to the ED on 04/01 with complaints of progressively worsening shortness of breath with an onset of 1 week prior and abdominal pain. Pt. reported that she was feeling ill and noted abdominal distention. At the time she stated she felt her distention was causing the shortness of breath. When patient presented to the ED, she noted to be in afib with RVR. Labs also revealed a bun/creatinine of 20/2, BNP of 1075, and a CXR which showed 'cardiomegaly with mild interstitial edema'. Pt. was admitted to the hospitalist program and treated for sob, renal failure, and dm. Pt. has had a lengthy hospital stay totalling 16 days. She has been seen by Cardiology, Nephrology, and pulmonology. Cardiology repeated an echo on patient and dopplers scans were completed to rule out PE. They were negative. Nephrology monitored patients bun/creatinine. Pt treated by IV fluids for renal function and daily bmps were drawn. Pulmonology started patient on IV lasix to help with pulm. htn. Sputum cultures were taken from patient and grew out staph haemolyticus which is most likely colonization. We will finish 5 more days of levaquin. Cardiology has signed off. Echocardiogram showed an EF of 40% with diastolic dysfunction and a PAP of 77. Her severe pulmonary hypertension persists despite faithful use of her CPAP machine. Patient is morbidly obese. She will continue to require oxygen and medical care for the rest of her life. We have ordered her hospital bed for home home health with home PT, nurse and aid. Patient really needs to go to a swing bed but family has refused. I think they will find that it is more difficult to care for than they were originally assumed. Patient cannot tolerate any YASMINE or ARB due to renal failure. Patient does not require any potassium supplementation. Patient will be on 80 twice a day of Lasix. She gets very short of breath with any activity but this is going to be her new baseline. Patient does require insulin for diabetes but only once a day. Patient's blood pressure is fairly well-controlled with current medication regimen. Patient to follow up with cardiology and pulmonary and her PMD. Patient seen and examined. Hospital course reviewed and edited. Discharge Plan - Discharge Data Disposition: Home Health Service - Discharge Medications New Apixaban [Eliquis] 2.5 mg PO BID #60 tablet Ascorbic Acid Tab [Vitamin C Tab] 1,000 mg PO BID tablet Diltiazem Cd Cap [Cardizem CD] 240 mg PO DAILY #30 capsule Ferrous Sulfate Tab [Feosol Original Tab] 325 mg PO BID tablet Levofloxacin Tab [Levaquin Tab] 250 mg PO Q48H #5 tablet Albuterol/Ipratropium Neb [Duoneb] 3 ml RESP TX TID #90 vial Continue Insulin NPH Human Isophane [Novolin N] 10 units SUBCUT QAM #10 ml Metoprolol Succinate Xl [Toprol Xl] 100 mg PO BID #60 tablet Isosorbide Mononitrate [Isosorbide Mononitrate ER] 30 mg PO DAILY Aspirin EC Tab 81 mg PO DAILY Changed Furosemide 80 mg PO BID #120 tablet Discontinued Amlodipine Besylate [Amlodipine Besylate] 10 mg PO DAILY Losartan Potassium [Losartan Potassium] 50 mg PO DAILY Potassium Chloride 20 meq PO BID - Follow Up or Referral Follow Up: Hernan Wolfe MD [Physician] - 2 Weeks Rivas Scales MD [Physician] - 2 Weeks pmdr jodie [Other] - 1 Week - Forms/Instructions Exam - Constitutional Vitals: Period Temp Pulse Resp BP Sys/Avina Pulse Ox Last 24 Hr 97.2 F-98.8 F 77-124 16-18 129-153/69-96 90-100 Discharge Results Procedures and tests throughout hospitalization: Pending Orders 04/14/17 Sputum Culture and Gram Stain Routine 04/17/17 10:08 XR chest 1V portable Stat 04/18/17 04:00 BMP w/ Mg [Basic Metabolic Panel w/Mg] IN AM 04/19/17 04:00 BMP w/ Mg [Basic Metabolic Panel w/Mg] IN AM 04/20/17 04:00 BMP w/ Mg [Basic Metabolic Panel w/Mg] IN AM 04/21/17 04:00 BMP w/ Mg [Basic Metabolic Panel w/Mg] IN AM 04/22/17 04:00 BMP w/ Mg [Basic Metabolic Panel w/Mg] IN AM Labs on day of discharge: Labs from last 24 hours 04/17/17 04/17/17 04/17/17 11:15 08:00 04:57 WBC 5.4 RBC 3.89 Hgb 9.9 L Hct 32.6 L MCV 83.8 L MCH 25 L MCHC 30.4 L RDW 18.9 H Plt Count 249 MPV 10.7 Neut % (Auto) 65.4 Lymph % (Auto) 17.0 L [place] % (Auto) 14.2 H Eos % (Auto) 2.6 Baso % (Auto) 0.2 Neut # (Auto) 3.5 Lymph # (Auto) 0.9 L [place] # (Auto) 0.8 Eos # (Auto) 0.1 Baso # (Auto) 0.0 Immature Gran % 0.6 Nucleated RBC % 0.0 Immature Gran # 0.03 Nucleated RBCs # 0.00 Immature Plt Fraction 0.0 Sodium Potassium Chloride Carbon Dioxide Anion Gap BUN Creatinine GFR Calculation BUN/Creatinine Ratio Glucose POC Glucose 145 H 105 Calculated Osmolality Calcium Magnesium 04/17/17 04/16/17 04/16/17 04:57 20:10 16:18 WBC RBC Hgb Hct MCV MCH MCHC RDW Plt Count MPV Neut % (Auto) Lymph % (Auto) [place] % (Auto) Eos % (Auto) Baso % (Auto) Neut # (Auto) Lymph # (Auto) [place] # (Auto) Eos # (Auto) Baso # (Auto) Immature Gran % Nucleated RBC % Immature Gran # Nucleated RBCs # Immature Plt Fraction Sodium 146 H Potassium 4.1 Chloride 109 H Carbon Dioxide 33 H Anion Gap 8.1 BUN 22 H Creatinine 2.00 H GFR Calculation 31 BUN/Creatinine Ratio 11.00 Glucose 94 POC Glucose 147 H 128 H Calculated Osmolality 292.6 Calcium 8.5 Magnesium 1.9 04/16/17 04/16/17 11:30 07:41 WBC RBC Hgb Hct MCV MCH MCHC RDW Plt Count MPV Neut % (Auto) Lymph % (Auto) [place] % (Auto) Eos % (Auto) Baso % (Auto) Neut # (Auto) Lymph # (Auto) [place] # (Auto) Eos # (Auto) Baso # (Auto) Immature Gran % Nucleated RBC % Immature Gran # Nucleated RBCs # Immature Plt Fraction Sodium Potassium Chloride Carbon Dioxide Anion Gap BUN Creatinine GFR Calculation BUN/Creatinine Ratio Glucose POC Glucose 144 H 108 H Calculated Osmolality Calcium Magnesium Preliminary micro results at discharge 04/14/17 Unknown Sputum Culture - Preliminary Sputum Staphylococcus haemolyticus MR Yeast DS: Provider Date of admission: 04/01/17 11:48 Primary care physician: . No PCP Attending physician on admission: Rivas Rao MD Consults: 04/01/17 12:56 Consult to Physician [CONS] Routine Comment: Consulting Provider: Cardiology - [facility] 04/01/17 13:15 Consult to Dietitian [CONS] Routine Reason for Dietitian: Diet Recommendations 04/04/17 07:26 Consult to Physician [CONS] Routine Comment: donald Consulting Provider: Alexander Caraballo Jr. Consult to Specialist Group: Nephrology Person Notified: Sheryl Date Notified: 04/04/17 Time Notified: 08:30 04/06/17 15:55 Consult to Physical Therapy [CONS] Routine Reason for Physical Therapy: Evaluate and Treat Consult Comment: PT 04/07/17 11:42 Consult to Occupational Therapy [CONS] Routine Reason for Occupational Therapy: Evaluate and Treat 04/07/17 12:47 Consult to Physical Therapy [CONS] Routine Reason for Physical Therapy: Ambulation Consult Comment: please see patient over the weekend 04/09/17 14:41 Consult to Physician [CONS] Routine Comment: chf, continued sob with extertion Consulting Provider: Rivas Scales When should Consulting Provider be notified: In am Discharging clinician: Jonathan Raines NP <Chely Quintana R - Last Filed: 04/17/17 12:34> Hospital Course - Time spent with patient Time with patient DS: Greater than 30 minutes (45 min) Discharge Plan - Discharge Data Condition at Discharge: Stable Discharge Diet: diabetic diet Activity: resume usual activities as tolerated, as per physical therapy, wear oxygen at all times Hygiene: no restrictions Weight Bearing at Discharge: full weight bearing - Forms/Instructions Additional Discharge Instructions: cpap at night every night and during the day prn sob Exam - Constitutional General appearance: no acute distress, morbidly obese - Head Head exam: Present: normal inspection, normocephalic - Respiratory Respiratory exam: Present: decreased breath sounds. Absent: rales, rhonchi, stridor, wheezes - Cardiovascular Cardiovascular exam: Present: tachycardia. Absent: systolic murmur - GI/Abdominal GI/Abdominal exam: Present: normal bowel sounds, soft. Absent: tenderness - Neurological Exam Neurological exam: Present: alert, oriented X3 - Psychiatric Psychiatric exam: Present: normal affect, normal mood - Skin Skin exam: Present: normal color, warm
--- NOTE | 2017-04-17 11:54 | Nephrology Progress Note ---
Nephrology - PN: Subj Interval history: 04/05/2017. The patient is resting comfortably. Serum creatinine is noted be 3.5. Started IV fluids on yesterday. We will continue with IV fluids at this time. She mentions that her breathing feels fine. BMP in a.m. 04/06/2017. The patient is resting comfortably. Serum creatinine is noted to be down to 3.3. 04/07/2017. The patient is resting comfortably. She states her breathing has improved. Follow-up chest x-ray on yesterday showed improved CHF. Serum creatinine also is improved with creatinine of 2.9. 04/11/2017. The patient is resting comfortably. Serum creatinine is the same at 3.1. 04/12/2017. The patient is resting comfortably. Serum creatinine is noted to be 2.7 which is an improvement. No other acute changes. Patient was able to participate in physical therapy today. Has been setting up in her chair a good portion of the day. 04/13/2017. The patient is resting comfortably. Serum creatinine is continues to improve was now 2.5. No other acute changes. Potassium is noted to be a little low at 3.0. Will supplement potassium today with 40 mEq of potassium. 04/14/2017. The patient is resting comfortably. Serum creatinine continues to trend down now 2.30. No other acute changes. Continue with potassium supplement for this patient. 04/15/2017. The patient is resting comfortably. She is visiting with family. No shortness of breath or chest pain. 04/16/2017. The patient is resting comfortably. She is sitting up in a chair visiting with family. She voices no complaints no shortness of breath reported. Serum creatinine is noted to be 2 today. Continue to supplement the patient's potassium. 04/17/2017. The patient is resting comfortably no acute changes. Serum creatinine is now down to 2. No new recommendations at this time. Exam (PN)-Nephrology - Vital Signs Vital signs: Period Temp Pulse Resp BP Sys/Avina Pulse Ox Last 24 Hr 97.2 F-99.1 F 77-117 16-18 130-153/69-96 92-100 - General Appearance General appearance: well-developed, well-nourished, fatigue EENT: ATNC Neck: supple Respiratory: clear Cardiology: regular rate, regular rhythm Gastrointestinal: normoactive bowel sounds, no tenderness Integumentary: no rash Neurologic: CN 3-12 intact Musculoskeletal: no deformities Psychiatric: mood/affect appropriate, cooperative - Lab 04/17/17 04:57 04/17/17 04:57 Most recent lab results ABG pH 7.332 (7.35-7.45) L 04/11/17 03:51 ABG pCO2 45.5 MM HG (35-48) 04/11/17 03:51 ABG pO2 65.9 MM HG (80-95) L 04/11/17 03:51 ABG HCO3 22.7 MMOL/L (20-26) 04/11/17 03:51 ABG O2 Saturation 91.6 % (95-100) L 04/11/17 03:51 Calcium 8.5 MG/DL (8.5-10.1) 04/17/17 04:57 Magnesium 1.9 MG/DL (1.8-2.4) 04/17/17 04:57 Assessment and Plan (1) CHF exacerbation Status: Acute Current Visit: Yes (2) Shortness of breath Status: Acute Assessment and plan: Now with oxygen therapy. Current Visit: Yes (3) Urinary tract infection Status: Acute Assessment and plan: Urine culture is negative. Current Visit: Yes (4) Chronic kidney disease Status: Chronic Assessment and plan: Renal ultrasound shows evidence of chronic kidney disease. Renal function is stable. Current Visit: Yes Qualifiers: Chronic kidney disease stage: stage 3 (moderate) Qualified Code(s): N18.3 - Chronic kidney disease, stage 3 (moderate) (5) Hypertension Status: Chronic Current Visit: Yes Qualifiers: Hypertension type: essential hypertension Qualified Code(s): I10 - Essential (primary) hypertension (6) Insulin dependent diabetes mellitus Status: Chronic Current Visit: Yes (7) Pulmonary hypertension Status: Chronic Current Visit: Yes (8) Sleep apnea Status: Chronic Current Visit: Yes
[2017-04-17 12:00] VITALS: BP 129/96
[2017-04-17] MEDS: LEVOFLOXACIN INJ 250 MG in PREMIX 1 EACH IV SCH (12:29)
--- NOTE | 2017-04-17 12:39 | XRay Report ---
History: Shortness of breath Date: 04/17/2017 Study: Chest x-ray AP portable Comparison exam: April 14, 2017 There is stable cardiomegaly. The mediastinal contours are unchanged. The pulmonary vasculature is upper normal. There is no gross pleural effusion. The lungs are well-expanded without new or worsening infiltrate. There is slightly improved aeration in the lower lungs bilaterally compatible with improving pulmonary edema. Osseous structures are unchanged. Impression: Cardiomegaly and improving congestive heart failure compared to the previous study PROCEDURE INTERPRETED AT [facility] DEPARTMENT OF RADIOLOGY Final Report Signed by: Dr. Elvira Desouza
--- NOTE | 2017-04-27 13:29 | EKG Report ---
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
--- NOTE | 2017-04-27 13:29 | EKG Report ---
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
== END 2017-04-17 14:36 | disposition home health service (06) | DRG 291 ==
LOC: N.ED 09:04 → SUATTDRO 11:48 → N.EDINP 11:48 → N.TELEN 12:57
PROVIDERS: ADMIT Hospitalist; ATTEND Internal Medicine

== ENCOUNTER 2017-07-20 16:15 | Inpatient (IN) ==
[2017-07-20] MEDS ORDERED: PANTOPRAZOLE 40 MG VIAL IV STA (18:22)
[2017-07-20] MEDS ORDERED: SODIUM CHLORIDE 0.9% 500 ML IV STA (18:22)
[2017-07-20] MEDS ORDERED: ONDANSETRON 4 MG/2 ML VIAL IV STA (18:22)
[2017-07-20] MEDS ORDERED: ONDANSETRON 4 MG/2 ML VIAL ONE (18:38)
[2017-07-20] MEDS ORDERED: PANTOPRAZOLE 40 MG VIAL IV ONE (18:38)
[2017-07-20 19:02] LABS: Basophils % 0.7 % (0.0-0.8); Eosinophils # 0.1 10*3/uL (0.0-0.87); Eosinophils % 1.8 % (0.00-10.9); Hematocrit 35.3 VOL% (35.7-47.0); Immature Granulocytes % 0.2 %; Immature Granulocytes Absolute 0.01 #; Lymphocytes # 1.1 10*3/uL (1.4-4.0); Lymphocytes % 23.6 % (21.3-54.2); Mean Corpuscular HGB Conc 31.2 GM/DL (32-36); Mean Corpuscular Hemoglobin 29 PG (27-34); Mean Corpuscular Volume 93.6 FL (87-102); Mean Platelet Volume 11.4 FL (9.6-12.0); Monocytes # 0.5 10*3/uL (0.11-0.8); Monocytes % 11.6 % (1.7-12.7); Neutrophils # 2.8 10*3/uL (1.4-7.4); Neutrophils % 62.1 % (38.7-73.9); Platelet Count 221 T/CUMM (130-400); Red Blood Count 3.77 MC/CUMM (3.8-5.5); Red Cell Distribution Width 15.6 % (9.3-17.3); White Blood Count 4.5 T/CUMM (4-12)
[2017-07-20 19:13] LABS: PT Patient Result 20.4 SECS
[2017-07-20 19:23] LABS: Albumin 3.6 G/DL (3.4-5.0); Bilirubin,Total 0.4 MG/DL (0.2-1.0); Calcium 8.8 MG/DL (8.5-10.1); Magnesium 2.5 MG/DL (1.8-2.4); Osmolality,Calculated 287.8 MOS/KG (273-304); Potassium 3.3 MMOL/L (3.5-5.1); Total Protein 7.4 G/DL (6.4-8.3); Troponin I Only 0.02 NG/ML (0.00-0.045)
[2017-07-20] MEDS ORDERED: DEXTROSE 50% 25 GM/50 ML VIAL IV STA (19:41)
[2017-07-20] MEDS ORDERED: POTASSIUM CHLORIDE 20 MEQ TABLET PO STA (19:45)
[2017-07-20] MEDS ORDERED: POTASSIUM CHLORIDE 20 MEQ TABLET PO ONE (19:55)
[2017-07-20] MEDS ORDERED: DEXTROSE 50% 25 GM/50 ML SYRINGE IV ONE (19:56)
[2017-07-20] MEDS ORDERED: hydrALAZINE 20 MG/1 ML VIAL IV PRN (21:10)
[2017-07-20] MEDS ORDERED: hydrALAZINE 20 MG/1 ML VIAL IV ONE (21:11)
[2017-07-20] MEDS ORDERED: hydrALAZINE 20 MG/1 ML VIAL ONE (21:11)
[2017-07-20] MEDS ORDERED: DOCUSATE SODIUM 100 MG CAPSULE PO SCH (21:57)
[2017-07-20] MEDS ORDERED: DEXTROSE 50% 25 GM/50 ML VIAL IV PRN (21:57)
[2017-07-20] MEDS ORDERED: MORPHINE 2 MG/1 ML SYRINGE IV PRN (21:57)
[2017-07-20] MEDS ORDERED: ACETAMINOPHEN 325 MG TABLET PO PRN (21:57)
[2017-07-20] MEDS ORDERED: GLUCAGON 1 MG VIAL IM PRN (21:57)
[2017-07-20] MEDS: INSULIN REGULAR 100 UNIT/ML SUBCUT SCH (22:13)
[2017-07-20] MEDS: SODIUM CHLORIDE 0.9% 1,000 ML IV SCH (22:22)
[2017-07-20 22:25] LABS: Basophils % 0.4 % (0.0-0.8); Eosinophils # 0.1 10*3/uL (0.0-0.87); Eosinophils % 1.6 % (0.00-10.9); Hematocrit 28.8 VOL% (35.7-47.0); Hemoglobin 8.8 GM/DL (12.0-16.0); Immature Granulocytes % 0.2 %; Immature Granulocytes Absolute 0.01 #; Lymphocytes % 17.5 % (21.3-54.2); Mean Corpuscular HGB Conc 30.6 GM/DL (32-36); Mean Corpuscular Hemoglobin 29 PG (27-34); Mean Corpuscular Volume 93.8 FL (87-102); Mean Platelet Volume 10.5 FL (9.6-12.0); Monocytes # 0.6 10*3/uL (0.11-0.8); Monocytes % 10.7 % (1.7-12.7); Neutrophils # 3.8 10*3/uL (1.4-7.4); Neutrophils % 69.6 % (38.7-73.9); Platelet Count 248 T/CUMM (130-400); Red Blood Count 3.07 MC/CUMM (3.8-5.5); Red Cell Distribution Width 15.7 % (9.3-17.3); White Blood Count 5.5 T/CUMM (4-12)
[2017-07-21] MEDS: ALBUTEROL/IPRATROPIUM 3 ML NEB RESP TX SCH ×3 (07:17→19:08)
[2017-07-21] MEDS ORDERED: PHYTONADIONE 10 MG/1 ML AMP SUBCUT ONE (07:30)
[2017-07-21 07:41] LABS: Apearance,Urine CLEAR (Clear); Bilirubin,Urine Negative (Negative); Blood, Urine Negative (Negative); Glucose,Urine (UA) Negative (Negative); Hyaline Casts,Urine 2 /LPF (0-3); Ketones,Urine Negative (Negative); Mucus,Urine Occasional /LPF (Occasional); Nitrite,Urine Negative (Negative); Protein,Urine 100 MG/DL; RBC,Urine <1 /HPF (0-4); Squamous Epithelial Cell,Urine Occasional /HPF (0-10); Urine Color Yellow (Yellow); Urine Specific Gravity 1.009 (1.001-1.035); Urine Urobilinogen < 2.0 EU/DL (0.2-1.0); WBC,Urine 1 /HPF (0-6)
[2017-07-21 08:04] LABS: Hematocrit 26.7 VOL% (35.7-47.0)
[2017-07-21] MEDS ORDERED: METOPROLOL TARTRATE 25 MG TABLET ONE (09:13)
[2017-07-21] MEDS ORDERED: FUROSEMIDE 80 MG TABLET PO SCH (10:00)
[2017-07-21] MEDS: PANTOPRAZOLE 40 MG VIAL IV SCH (10:18)
[2017-07-21] MEDS ORDERED: GLUCAGON 1 MG VIAL IM PRN (12:28)
[2017-07-21] MEDS ORDERED: DEXTROSE 50% 25 GM/50 ML VIAL IV PRN (12:28)
[2017-07-21] MEDS: INSULIN REGULAR 100 UNIT/ML SUBCUT SCH ×2 (13:47→17:44)
[2017-07-21] MEDS ORDERED: ETOMIDATE 40 MG/20 ML VIAL IV ONE (16:43)
[2017-07-21] MEDS: METOPROLOL SUCCINATE XL 100 MG TABLET PO SCH ×2 (17:04→21:18)
[2017-07-21] MEDS: DILTIAZEM CD 240 MG CAPSULE PO SCH (17:04)
[2017-07-21] MEDS: FUROSEMIDE 80 MG TABLET PO SCH (17:04)
[2017-07-21] MEDS: POTASSIUM CHLORIDE 20 MEQ TABLET PO SCH ×2 (17:04→21:18)
[2017-07-21 19:13] LABS: Hematocrit 29.5 VOL% (35.7-47.0); Hemoglobin 8.9 GM/DL (12.0-16.0)
[2017-07-21] MEDS: SODIUM CHLORIDE 0.9% 1,000 ML IV SCH (20:19)
[2017-07-22] MEDS: INSULIN REGULAR 100 UNIT/ML SUBCUT SCH ×4 (00:21→18:34)
[2017-07-22 06:22] LABS: Basophils % 0.5 % (0.0-0.8); Eosinophils # 0.1 10*3/uL (0.0-0.87); Hematocrit 28.2 VOL% (35.7-47.0); Hemoglobin 8.5 GM/DL (12.0-16.0); Immature Granulocytes % 0.2 %; Immature Granulocytes Absolute 0.01 #; Lymphocytes # 0.8 10*3/uL (1.4-4.0); Mean Corpuscular HGB Conc 30.1 GM/DL (32-36); Mean Corpuscular Hemoglobin 29 PG (27-34); Mean Corpuscular Volume 95.3 FL (87-102); Mean Platelet Volume 11.5 FL (9.6-12.0); Monocytes # 0.6 10*3/uL (0.11-0.8); Neutrophils # 2.9 10*3/uL (1.4-7.4); Neutrophils % 64.3 % (38.7-73.9); Platelet Count 218 T/CUMM (130-400); Red Blood Count 2.96 MC/CUMM (3.8-5.5); Red Cell Distribution Width 15.5 % (9.3-17.3); White Blood Count 4.4 T/CUMM (4-12)
[2017-07-22 06:26] LABS: INR 1.4; PT Patient Result 15.1 SECS
[2017-07-22 06:50] LABS: Calcium 8.5 MG/DL (8.5-10.1); Magnesium 2.5 MG/DL (1.8-2.4); Osmolality,Calculated 293.4 MOS/KG (273-304); Potassium 3.7 MMOL/L (3.5-5.1)
[2017-07-22] MEDS: ALBUTEROL/IPRATROPIUM 3 ML NEB RESP TX SCH ×3 (07:31→20:16)
[2017-07-22] MEDS: ISOSORBIDE MONONITRATE 30 MG TABLET PO SCH (10:02)
[2017-07-22] MEDS: POTASSIUM CHLORIDE 20 MEQ TABLET PO SCH ×2 (10:02→21:20)
[2017-07-22] MEDS: FUROSEMIDE 80 MG TABLET PO SCH ×2 (10:03→16:59)
[2017-07-22] MEDS: DILTIAZEM CD 240 MG CAPSULE PO SCH (10:03)
[2017-07-22] MEDS: METOPROLOL SUCCINATE XL 100 MG TABLET PO SCH ×2 (10:03→21:20)
[2017-07-22] MEDS: PANTOPRAZOLE 40 MG VIAL IV SCH (10:03)
[2017-07-22] MEDS ORDERED: MAGNESIUM CITRATE 300 ML BOTTLE PO ONE (21:00)
[2017-07-22] MEDS: ASCORBIC ACID 500 MG TABLET PO SCH (21:20)
[2017-07-22] MEDS: hydrALAZINE 20 MG/1 ML VIAL IV PRN (21:20)
[2017-07-23] MEDS: INSULIN REGULAR 100 UNIT/ML SUBCUT SCH ×4 (00:35→17:11)
[2017-07-23 06:29] LABS: Basophils % 0.2 % (0.0-0.8); Eosinophils # 0.1 10*3/uL (0.0-0.87); Eosinophils % 2.3 % (0.00-10.9); Hematocrit 28.2 VOL% (35.7-47.0); Hemoglobin 8.5 GM/DL (12.0-16.0); Immature Granulocytes % 0.2 %; Immature Granulocytes Absolute 0.01 #; Lymphocytes # 0.9 10*3/uL (1.4-4.0); Lymphocytes % 19.3 % (21.3-54.2); Mean Corpuscular HGB Conc 30.1 GM/DL (32-36); Mean Corpuscular Hemoglobin 29 PG (27-34); Mean Corpuscular Volume 94.6 FL (87-102); Mean Platelet Volume 11.5 FL (9.6-12.0); Monocytes # 0.7 10*3/uL (0.11-0.8); Monocytes % 15.1 % (1.7-12.7); Neutrophils % 62.9 % (38.7-73.9); Platelet Count 216 T/CUMM (130-400); Red Blood Count 2.98 MC/CUMM (3.8-5.5); Red Cell Distribution Width 15.5 % (9.3-17.3); White Blood Count 4.8 T/CUMM (4-12)
[2017-07-23 06:56] LABS: Calcium 8.9 MG/DL (8.5-10.1); Osmolality,Calculated 294.4 MOS/KG (273-304); Potassium 3.7 MMOL/L (3.5-5.1)
[2017-07-23] MEDS: ALBUTEROL/IPRATROPIUM 3 ML NEB RESP TX SCH ×3 (08:00→20:05)
[2017-07-23] MEDS: BISACODYL 5 MG TABLET PO SCH ×2 (10:09→17:59)
[2017-07-23] MEDS: POTASSIUM CHLORIDE 20 MEQ TABLET PO SCH ×2 (10:10→21:35)
[2017-07-23] MEDS: FUROSEMIDE 80 MG TABLET PO SCH ×2 (10:10→17:59)
[2017-07-23] MEDS: ASCORBIC ACID 500 MG TABLET PO SCH ×2 (10:10→21:35)
[2017-07-23] MEDS: ISOSORBIDE MONONITRATE 30 MG TABLET PO SCH (10:10)
[2017-07-23] MEDS: PANTOPRAZOLE 40 MG VIAL IV SCH (10:11)
[2017-07-23] MEDS: DILTIAZEM CD 240 MG CAPSULE PO SCH (10:11)
[2017-07-23] MEDS: METOPROLOL SUCCINATE XL 100 MG TABLET PO SCH ×2 (10:12→21:35)
[2017-07-23] MEDS: hydrALAZINE 20 MG/1 ML VIAL IV PRN (14:29)
[2017-07-23] MEDS: ONDANSETRON 4 MG/2 ML VIAL IV PRN ×2 (14:29→21:35)
[2017-07-23] MEDS ORDERED: POLYETHYLENE GLYCOL 3350/ELECTROLYTES 4,000 ML BOTTLE PO ONE (18:00)
[2017-07-23] MEDS ORDERED: METOCLOPRAMIDE 10 MG/2 ML VIAL IV PRN (22:03)
[2017-07-23] MEDS ORDERED: MAGNESIUM CITRATE 300 ML BOTTLE PO ONE (22:30)
[2017-07-24] MEDS: BISACODYL 5 MG TABLET PO SCH (00:21)
[2017-07-24] MEDS: INSULIN REGULAR 100 UNIT/ML SUBCUT SCH ×3 (00:21→11:22)
[2017-07-24 05:56] LABS: Basophils % 0.2 % (0.0-0.8); Eosinophils # 0.1 10*3/uL (0.0-0.87); Eosinophils % 1.4 % (0.00-10.9); Hematocrit 26.4 VOL% (35.7-47.0); Hemoglobin 8.2 GM/DL (12.0-16.0); Immature Granulocytes % 0.3 %; Immature Granulocytes Absolute 0.02 #; Lymphocytes # 1.1 10*3/uL (1.4-4.0); Lymphocytes % 18.2 % (21.3-54.2); Mean Corpuscular HGB Conc 31.1 GM/DL (32-36); Mean Corpuscular Hemoglobin 29 PG (27-34); Mean Platelet Volume 11.5 FL (9.6-12.0); Monocytes # 0.8 10*3/uL (0.11-0.8); Monocytes % 13.5 % (1.7-12.7); Neutrophils # 3.8 10*3/uL (1.4-7.4); Neutrophils % 66.4 % (38.7-73.9); Platelet Count 225 T/CUMM (130-400); Red Blood Count 2.81 MC/CUMM (3.8-5.5); Red Cell Distribution Width 15.1 % (9.3-17.3); White Blood Count 5.8 T/CUMM (4-12)
[2017-07-24 06:34] LABS: Calcium 8.8 MG/DL (8.5-10.1); Magnesium 2.8 MG/DL (1.8-2.4); Osmolality,Calculated 296.1 MOS/KG (273-304); Potassium 3.3 MMOL/L (3.5-5.1)
[2017-07-24] MEDS: ALBUTEROL/IPRATROPIUM 3 ML NEB RESP TX SCH (07:26)
[2017-07-24] MEDS: FUROSEMIDE 80 MG TABLET PO SCH ×3 (08:44→15:21)
[2017-07-24] MEDS: METOPROLOL SUCCINATE XL 100 MG TABLET PO SCH ×2 (08:44→10:54)
[2017-07-24] MEDS: ISOSORBIDE MONONITRATE 30 MG TABLET PO SCH ×2 (08:44→10:54)
[2017-07-24] MEDS: PANTOPRAZOLE 40 MG VIAL IV SCH ×2 (08:44→10:54)
[2017-07-24] MEDS: DILTIAZEM CD 240 MG CAPSULE PO SCH ×2 (08:44→10:54)
[2017-07-24] MEDS: POTASSIUM CHLORIDE 20 MEQ TABLET PO SCH ×2 (08:44→10:54)
[2017-07-24] MEDS: ASCORBIC ACID 500 MG TABLET PO SCH (08:45)
[2017-07-24] MEDS ORDERED: PROPOFOL 200 MG/20 ML VIAL IV ONE (08:51)
[2017-07-24] MEDS ORDERED: LIDOCAINE 2% 5 ML VIAL ONE (08:51)
[2017-07-24 11:23] VITALS: BP 178/81
== END 2017-07-24 15:48 | disposition home health service (06) | DRG 378 ==
LOC: N.ED 16:15 → N.EDINP 19:48 → N.5E 20:42
PROVIDERS: ADMIT Family Medicine; ATTEND Family Medicine